=== PATIENT | female | born 1985 | race Caucasian/White ===

== ENCOUNTER 2016-08-30 07:45 | Inpatient (IN) | payer SELFPAY ==
[~2016-08-30] VITALS: Ht 170.2 cm; Wt 74.7 kg
[2016-08-30] VITALS (46 sets, daily range): BP systolic 59–201; BP diastolic 36–145; PULSE 65–121; RESP 14–37; TEMP 97.8–99.3; O2SAT 94–100
[~2016-08-30 07:45] MED LIST: IBUP800T23 PO
[2016-08-30] MEDS ORDERED: CEPH-460 PO (08:05)
[2016-08-30] MEDS ORDERED: SODIUM CHLOR 0.9% 1000 ML INJ 1,000 ML IV ONE ×3 (08:11→10:00)
[2016-08-30] MEDS ORDERED: MORPHINE SULFATE 8 MG/ML INJ IV PUSH ONE (08:15)
[2016-08-30] MEDS ORDERED: ONDANSETRON HCL 4 MG/2 ML VIAL IM ONE (08:15)
[2016-08-30] MEDS ORDERED: SODIUM CHLORIDE 0.9% FLUSH 10 ML FLUSH IVF PRN (08:15)
[2016-08-30] MEDS ORDERED: VANCOMYCIN INJ 1,050 MG in SODIUM CHLOR 0.9% 250 ML INJ 250 ML IV ONE (08:30)
[2016-08-30] MEDS ORDERED: PIPERACIL-TAZO 3.375 GM PREMIX 50 ML IV ONE (08:30)
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
[2016-08-30 08:40] LABS: AUTOMATED NEUTROPHIL # 14.3 TH/MM3 (1.8-7.7); BASOPHIL # 0.1 TH/MM3 (0-0.2); BASOPHIL % 0.9 % (0.0-2.0); EOSINOPHIL # 0.2 TH/MM3 (0-0.4); EOSINOPHIL % 1.1 % (0.0-4.0); HEMATOCRIT 38.2 % (35.0-46.0); LYMPH % 1.5 % (9.0-44.0); LYMPHOCYTE # 0.2 TH/MM3 (1.0-4.8); MEAN CELL VOLUME 89.5 FL (80.0-100.0); MEAN CORPUSCULAR HEMOGLOBIN 30.4 PG (27.0-34.0); MONO % 4.8 % (0.0-8.0); NEUT % 91.7 % (16.0-70.0); PLATELET COUNT 147 TH/MM3 (150-450); RED BLOOD COUNT 4.26 MIL/MM3 (4.00-5.30); RED CELL DISTRIBUTION WIDTH 13.3 % (11.6-17.2); WHITE BLOOD COUNT 15.5 TH/MM3 (4.0-11.0)
[2016-08-30 08:43] LABS: HEMO FLAGS DIFF FINAL
[2016-08-30] MEDS ORDERED: fentaNYL CITRATE 250 MCG/5 ML AMP IV PUSH ONE (08:45)
[2016-08-30] MEDS ORDERED: TETANUS/DIPHTHERIA TOXOID ADULT 0.5 ML VIAL IM ONE (08:45)
[2016-08-30 08:51] LABS: POTASSIUM 3.7 MEQ/L (3.5-5.1)
[2016-08-30 08:54] LABS: BICARBONATE 27.4 MEQ/L (21.0-32.0)
[2016-08-30 08:55] LABS: APTT (PATIENT) 30.4 SEC (24.3-30.1); INTERNATIONAL NORMALIZED RATIO 1.2 RATIO; PROTHROMBIN TIME - PATIENT 13.5 SEC (9.8-11.6)
[2016-08-30] MEDS ORDERED: VANCOMYCIN INJ 1,000 MG in SODIUM CHLOR 0.9% 250 ML INJ 250 ML IV ONE (09:15)
[2016-08-30] MEDS ORDERED: LEVOFLOXACIN 750 MG PREMIX INJ 150 ML IV ONE (09:15)
[2016-08-30] MEDS ORDERED: NOREPINEPHRINE-DEXTROSE DRIP 250 ML IV SCH (11:00)
[2016-08-30 11:14] LABS: GLUCOSE,URINE NEG (NEG); KETONE, URINE NEG (NEG); NITRITE,URINE NEG (NEG); PH, URINE 5.5 (5.0-8.5)
[2016-08-30] MEDS ORDERED: POTASSIUM CHLOR 40 MEQ PREMIX 100 ML IV PRN ×2 (11:15)
[2016-08-30] MEDS ORDERED: POTASSIUM PHOSPHATE MONOBASIC 500 MG TAB PO/TUBE PRN (11:15)
[2016-08-30] MEDS ORDERED: POTASSIUM PHOSPHATE MONOBASIC 500 MG TAB PO PRN (11:15)
[2016-08-30] MEDS ORDERED: POTASSIUM PHOSPHATE INJ 30 MMOL in SODIUM CHLOR 0.9% 250 ML INJ 250 ML IV PRN (11:15)
[2016-08-30] MEDS ORDERED: SODIUM PHOSPHATE INJ 30 MMOL in SODIUM CHLOR 0.9% 250 ML INJ 240 ML IV PRN (11:15)
[2016-08-30] MEDS ORDERED: MAGNESIUM SULFATE INJ 4 GM in SODIUM CHLORIDE 0.9% INJ 92 ML IV PRN (11:15)
[2016-08-30] MEDS ORDERED: MAGNESIUM SULFATE INJ 2 GM in SODIUM CHLORIDE 0.9% INJ 96 ML IV PRN (11:15)
[2016-08-30] MEDS ORDERED: POTASSIUM CHLOR 20 MEQ PREMIX 100 ML IV PRN ×2 (11:15)
[2016-08-30] MEDS ORDERED: MAGNESIUM OXIDE 400 MG TAB PO PRN (11:15)
[2016-08-30 11:18] LABS: BLOOD, URINE MOD (NEG)
[2016-08-30 11:19] LABS: METHOD OF COLLECTION CLEAN CATCH; URINE COLOR DARK-YELLOW (YELLW/STRAW)
[2016-08-30 11:20] LABS: RBC, URINE 0-3 /hpf (0-3); SQUAMOUS EPITHELIAL CELL URINE 0-5 /hpf (0-5)
--- NOTE | 2016-08-30 11:58 | RADRPT ---
EXAM DATE/TIME: 08/30/2016 11:52 [place] COMPARISON: No previous studies available for comparison. INDICATIONS : Central line placement. MEDICAL HISTORY : None. SURGICAL HISTORY : None. ENCOUNTER: Initial ACUITY: 1 day PAIN SCORE: 0/10 LOCATION: Bilateral chest FINDINGS: A single view of the chest demonstrates the lungs to be symmetrically aerated without evidence of mas s, infiltrate or effusion. The cardiomediastinal contours are unremarkable. Osseous structures are intact. Right jugular line tip overlies the SVC. Lungs are clear. CONCLUSION: Right jugular line as above. No evidence of pneumothorax. Buck Garza MD on August 30, 2016 at 11:55 Board Certified Radiologist. This report was verified electronically.
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
[2016-08-30] MEDS ORDERED: RESP: ALBUTEROL 2.5 MG/IPRATROPIUM 0.5 MG NEB (PRN) NEB (12:15)
[2016-08-30] MEDS ORDERED: Vancomycin Consult Pharmacy 1 EA OTHER SCH (12:15)
[2016-08-30] MEDS ORDERED: NALOXONE HCL 0.4 MG/ML AMP IV PRN (12:30)
[2016-08-30] MEDS ORDERED: KETOROLAC TROMETHAMINE 30 MG/ML (IVP) VIAL IVP PRN (12:30)
[2016-08-30] MEDS ORDERED: ACETAMINOPHEN/HYDROcodone 325 MG/5 MG TAB PO PRN (12:30)
[2016-08-30] MEDS ORDERED: ACETAMINOPHEN 325 MG TAB PO PRN (12:30)
[2016-08-30 12:37] LABS: INDIRECT BILIRUBIN 1.9 MG/DL (0.0-0.8); TOTAL BILIRUBIN ADULT 2.2 MG/DL (0.2-1.0)
[2016-08-30] MEDS: NS + KCL 20 MEQ INJ 1,000 ML IV SCH (13:23)
[2016-08-30] MEDS: ENOXAPARIN SODIUM 40 MG/0.4 ML SYRINGE SQ SCH (13:23)
[2016-08-30] MEDS ORDERED: CHLORHEXIDINE GLUCONATE 2 % 1 PACK (2 CLOTHS)(extra cloths) TOPICAL PRN (13:45)
[2016-08-30] MEDS: PANTOPRAZOLE SOD 40 MG DELAYED RELEASE TAB PO SCH (13:56)
[2016-08-30] MEDS: NICOTINE 14 MG/24 HR PATCH T-DERMAL SCH (13:56)
[2016-08-30] MEDS: MORPHINE SULFATE 8 MG/ML INJ IV PUSH PRN ×2 (14:14→19:54)
[2016-08-30 15:15] LABS: LACTIC ACID GHOST NOT REPORTABLE
[2016-08-30] MEDS ORDERED: HYDROmorphone HCL PF 1 MG/ML VIAL IV PUSH ONE (16:00)
[2016-08-30] MEDS: PIPERACIL-TAZO 3.375 GM PREMIX 50 ML IV SCH ×2 (16:37→22:03)
[2016-08-30] MEDS ORDERED: VANCOMYCIN 1,000 MG/NS 250 ML IV SCH ×2 (22:00)
--- NOTE | 2016-08-30 22:35 | RADRPT ---
EXAM DATE/TIME: 08/30/2016 20:23 [place] COMPARISON: No previous studies available for comparison. INDICATIONS : Cellulitis. Evaluate for compartment syndrome. CONTRAST: 15 cc Omniscan (gadodiamide) IV MEDICAL HISTORY : None. SURGICAL HISTORY : Appendectomy. Right wrist. ENCOUNTER: Subsequent ACUITY: 2 day PAIN SCORE: 8/10 LOCATION: Right Lower leg. TECHNIQUE: Multiplanar multisequence MRI examination of the lower leg was performed with and without contrast. FINDINGS: BONE/CARTILAGE: Bone marrow signal is homogeneous. Articular cartilage signal is within normal limits. MUSCLES/TENDONS: All of the visualized muscles and tendons are intact. There is circumferential edema seen around the all the muscular compartments. Edema within the muscles themselves is not seen. The circumferential e opal appears to be within the deep subcutaneous fat. MISCELLANEOUS: Neurovascular structures are within normal limits. POST-CONTRAST: There are no abnormal areas of enhancement on the post-contrast images. CONCLUSION: Edema within the deep subcutaneous fat abutting the muscular compartments. Edema within the muscular compartments is not seen. Early compartment syndrome cannot be totally ruled out with MR. Evan Vargas MD on August 30, 2016 at 22:23 Board Certified Radiologist. This report was verified electronically.
[2016-08-30] MEDS ORDERED: GADODIAMIDE PF 287 MG/ML 5 ML VIAL (for RAD MRI) IV ONE (23:13)
[2016-08-30] MEDS: BACITRACIN TOP OINT 15 GM TUBE TOPICAL SCH (23:38)
[2016-08-30] MEDS ORDERED: LACTATED RINGER'S 1000 ML INJ 1,000 ML IV ONE (23:45)
[2016-08-31] VITALS (49 sets, daily range): BP systolic 79–121; BP diastolic 47–78; PULSE 50–94; RESP 12–41; TEMP 98–98.5; O2SAT 93–99
[2016-08-31] MEDS: NS + KCL 20 MEQ INJ 1,000 ML IV SCH ×3 (00:27→17:28)
[2016-08-31] MEDS: ACETAMINOPHEN/HYDROcodone 325 MG/10 MG TAB PO PRN ×3 (00:28→21:21)
[2016-08-31] MEDS: VASOPRESSIN INJ 40 UNITS in DEXTROSE 5% IN WATER 100ML INJ 98 ML IV SCH ×4 (00:29→17:29)
[2016-08-31] MEDS: NOREPINEPHRINE-DEXTROSE DRIP 250 ML IV SCH ×2 (02:13→07:06)
[2016-08-31] MEDS: CHLORHEXIDINE GLUCONATE 2 % 1 PACK (2 CLOTHS)(taper/protocol) TOPICAL SCH (02:13)
[2016-08-31] MEDS: PIPERACIL-TAZO 3.375 GM PREMIX 50 ML IV SCH (02:13)
[2016-08-31 06:05] LABS: MEAN CELL VOLUME 90.4 FL (80.0-100.0); MEAN CORPUSCULAR HEMOGLOBIN 29.3 PG (27.0-34.0); MEAN CORPUSCULAR HGB CONC 32.5 % (32.0-36.0); PLATELET COUNT 126 TH/MM3 (150-450); RED BLOOD COUNT 3.87 MIL/MM3 (4.00-5.30); RED CELL DISTRIBUTION WIDTH 13.4 % (11.6-17.2); REVIEW FLAG FINAL; WHITE BLOOD COUNT 17.2 TH/MM3 (4.0-11.0)
[2016-08-31 06:16] LABS: POTASSIUM 4.2 MEQ/L (3.5-5.1)
[2016-08-31] MEDS: MORPHINE SULFATE 8 MG/ML INJ IV PUSH PRN ×2 (06:24→19:02)
[2016-08-31 06:26] LABS: BICARBONATE 25.7 MEQ/L (21.0-32.0)
[2016-08-31] MEDS ORDERED: PIPERACIL-TAZO 4.5 GM PREMIX 100 ML IV SCH (06:30)
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
[2016-08-31] MEDS: BISACODYL 10 MG SUPP RECTAL SCH (09:00)
[2016-08-31] MEDS: REMOVE OLD PATCH T-DERMAL SCH (09:00)
[2016-08-31] MEDS: DOCUSATE SODIUM 50 MG/SENNA 8.6 MG TAB PO SCH ×2 (09:06→21:38)
[2016-08-31] MEDS: LACTULOSE SYRUP 20 GM/30 ML CUP PO SCH ×2 (09:08→21:00)
[2016-08-31] MEDS: PANTOPRAZOLE SOD 40 MG DELAYED RELEASE TAB PO SCH (09:08)
[2016-08-31] MEDS: NICOTINE 14 MG/24 HR PATCH T-DERMAL SCH (09:08)
[2016-08-31] MEDS: BACITRACIN TOP OINT 15 GM TUBE TOPICAL SCH ×2 (09:10→21:00)
[2016-08-31] MEDS: PIPERACIL-TAZO 4.5 GM PREMIX 100 ML IV SCH ×3 (09:10→21:07)
[2016-08-31] MEDS: POLYETHYLENE GLYCOL 17 GM PKG PO SCH ×2 (09:11→21:38)
[2016-08-31] MEDS: LEVOFLOXACIN 750 MG PREMIX INJ 150 ML IV SCH (13:03)
[2016-08-31] MEDS: VANCOMYCIN INJ 1,250 MG in SODIUM CHLOR 0.9% 250 ML INJ 250 ML IV SCH ×2 (13:03→17:28)
[2016-08-31] MEDS: ENOXAPARIN SODIUM 40 MG/0.4 ML SYRINGE SQ SCH (13:04)
--- NOTE | 2016-08-31 14:32 | ECHRPT ---
Indication: Severe sepsis without septic shock, HYPOTENSION CONCLUSIONS Normal left ventricular size. Wall thickness is normal. The left ventricular systolic function is normal with an estimated ejection fraction in the range of 55-60%. No regional wall motion abnormalities are present. Left ventricular diastolic function parameters are normal. BP: 116 / 66 HR: 76 Rhythm: Sinus MEASUREMENTS (Male / Female) Normal Values Technical Quality:Fair 2D ECHO LV Diastolic Diameter PLAX 5.4 cm 4.2 - 5.9 / 3.9 - 5.3 cm LV Systolic Diameter PLAX 4.1 cm IVS Diastolic Thickness 0.7 cm 0.6 - 1.0 / 0.6 - 0.9 cm LVPW Diastolic Thickness 0.8 cm 0.6 - 1.0 / 0.6 - 0.9 cm LV Relative Wall Thickness 0.3 LVOT Diameter 2.2 cm Aortic Root Diameter 2.7 cm LA Systolic Diameter LX 3.8 cm 3.0 - 4.0 / 2.7 - 3.8 cm M-MODE AV Cusp Separation MM 2.3 cm DOPPLER AV Peak Velocity 130.0 cm/s AV Peak Gradient 6.8 mmHg AV Mean Gradient 4.0 mmHg AV Velocity Time Integral 28.2 cm LVOT Peak Velocity 75.9 cm/s LVOT Peak Gradient 2.3 mmHg LVOT Velocity Time Integral 15.8 cm LVOT Cardiac Index 2328.7 cm/minm AV Area Cont Eq vti 2.1 cm AV Area Cont Eq pk 2.2 cm Mitral E Point Velocity 63.7 cm/s Mitral A Point Velocity 47.9 cm/s Mitral E to A Ratio 1.3 LV E' Lateral Velocity 20.9 cm/s Mitral E to LV E' Lateral Ratio 3.0 LV E' Septal Velocity 10.6 cm/s Mitral E to LV E' Septal Ratio 6.0 TR Peak Velocity 262.0 cm/s TR Peak Gradient 27.5 mmHg PV Peak Velocity 66.9 cm/s PV Peak Gradient 1.8 mmHg FINDINGS LEFT VENTRICLE Normal left ventricular size. Wall thickness is normal. The left ventricular systolic function is normal with an estimated ejection fraction in the range of 55-60%. No regional wall motion abnormalities are present. Left ventricular diastolic function parameters are normal. RIGHT VENTRICLE Normal right ventricular size and systolic function. LEFT ATRIUM The left atrial size is normal. RIGHT ATRIUM The right atrial size is normal. ATRIAL SEPTUM Normal atrial septal thickness without atrial level shunting by limited color doppler interrogation. AORTA The aortic root and proximal ascending aorta are normal in size on limited imaging. MITRAL VALVE Structurally normal mitral valve. Trace mitral valve regurgitation. AORTIC VALVE Trileaflet aortic valve. No aortic valve stenosis or regurgitation. TRICUSPID VALVE Structurally normal tricuspid valve. There is trace tricuspid valve regurgitation. Normal estimated pulmonary pressures. PULMONARY VALVE The pulmonary valve is not well visualized. VESSELS The inferior vena cava is normal in size. PERICARDIUM No pericardial effusion. Everton Valle MD, FACC (Electronically Signed) Final Date:31 August 2016 14:31
[2016-09-01] VITALS (25 sets, daily range): BP systolic 80–114; BP diastolic 38–73; PULSE 70–98; RESP 14–39; TEMP 98–99.7; O2SAT 95–100
[2016-09-01] MEDS: VANCOMYCIN INJ 1,250 MG in SODIUM CHLOR 0.9% 250 ML INJ 250 ML IV SCH ×2 (00:47→12:05)
[2016-09-01] MEDS: CHLORHEXIDINE GLUCONATE 2 % 1 PACK (2 CLOTHS)(taper/protocol) TOPICAL SCH (01:51)
[2016-09-01] MEDS: PIPERACIL-TAZO 4.5 GM PREMIX 100 ML IV SCH ×3 (01:51→14:12)
[2016-09-01] MEDS: NS + KCL 20 MEQ INJ 1,000 ML IV SCH ×2 (01:55→15:26)
[2016-09-01 04:36] LABS: HEMATOCRIT 30.3 % (35.0-46.0); MEAN CELL VOLUME 89.7 FL (80.0-100.0); MEAN CORPUSCULAR HEMOGLOBIN 30.4 PG (27.0-34.0); MEAN CORPUSCULAR HGB CONC 33.8 % (32.0-36.0); PLATELET COUNT 106 TH/MM3 (150-450); RED BLOOD COUNT 3.38 MIL/MM3 (4.00-5.30); RED CELL DISTRIBUTION WIDTH 13.2 % (11.6-17.2); REVIEW FLAG FINAL; WHITE BLOOD COUNT 9.8 TH/MM3 (4.0-11.0)
[2016-09-01 04:53] LABS: BICARBONATE 25.9 MEQ/L (21.0-32.0)
[2016-09-01 05:03] LABS: CALCIUM-PROTEIN CORRECTED 8.3 MG/DL (8.5-10.1)
[2016-09-01] MEDS: MORPHINE SULFATE 8 MG/ML INJ IV PUSH PRN ×3 (07:40→15:27)
[2016-09-01] MEDS ORDERED: PHARMACY ORDERED LAB ONE ×2 (08:45→09:45)
[2016-09-01] MEDS: POLYETHYLENE GLYCOL 17 GM PKG PO SCH ×2 (09:00→21:00)
[2016-09-01] MEDS: NICOTINE 14 MG/24 HR PATCH T-DERMAL SCH (09:00)
[2016-09-01] MEDS: PANTOPRAZOLE SOD 40 MG DELAYED RELEASE TAB PO SCH (09:00)
[2016-09-01] MEDS: BISACODYL 10 MG SUPP RECTAL SCH (09:00)
[2016-09-01] MEDS: LACTULOSE SYRUP 20 GM/30 ML CUP PO SCH ×2 (09:00→21:00)
[2016-09-01] MEDS: DOCUSATE SODIUM 50 MG/SENNA 8.6 MG TAB PO SCH ×2 (09:00→21:00)
[2016-09-01] MEDS: REMOVE OLD PATCH T-DERMAL SCH (09:00)
[2016-09-01] MEDS ORDERED: PROPOFOL 200 MG/20 ML AMP IV ONE (12:00)
[2016-09-01] MEDS ORDERED: ONDANSETRON HCL 4 MG/2 ML VIAL IV PUSH ONE (12:00)
[2016-09-01] MEDS: BACITRACIN TOP OINT 15 GM TUBE TOPICAL SCH ×2 (12:05→21:00)
[2016-09-01] MEDS: ENOXAPARIN SODIUM 40 MG/0.4 ML SYRINGE SQ SCH (12:07)
[2016-09-01] MEDS: LEVOFLOXACIN 750 MG PREMIX INJ 150 ML IV SCH (12:08)
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
[2016-09-01] MEDS ORDERED: VANCOMYCIN INJ 1,400 MG in SODIUM CHLORID 0.9% 500 ML INJ 500 ML IV SCH (17:00)
[2016-09-01] MEDS: DEXT 5%-NACL 0.9% 1000 ML INJ 1,000 ML IV SCH (18:00)
[2016-09-01] MEDS ORDERED: GENTAMICIN SULFATE 80 MG/2 ML VIAL ONE (18:21)
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
[2016-09-01] MEDS ORDERED: BUPIVACAINE/EPINEPHRINE 0.5% 50 ML VIAL ONE (19:44)
[2016-09-01] MEDS ORDERED: MIDAZOLAM HCL 2 MG/2 ML VIAL ONE (20:18)
[2016-09-01] MEDS ORDERED: FAMOTIDINE 20 MG/2 ML VIAL ONE (20:18)
[2016-09-01] MEDS ORDERED: fentaNYL CITRATE 250 MCG/5 ML AMP ONE (20:26)
[2016-09-01] MEDS ORDERED: ACETAMINOPHEN/HYDROcodone 325 MG/10 MG TAB PO PRN (20:45)
[2016-09-01] MEDS ORDERED: MIDAZOLAM HCL 2 MG/2 ML VIAL IV ONE (21:00)
[2016-09-01] MEDS ORDERED: CITRIC ACID-SODIUM CITRATE LIQ 30 ML UDC PO ONE (21:00)
[2016-09-01] MEDS ORDERED: FAMOTIDINE 20 MG/2 ML VIAL IV ONE (21:00)
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
[2016-09-01] MEDS ORDERED: CEFTAZIDIME 2000 MG IM ONE (21:15)
[2016-09-01] MEDS ORDERED: CIPROFLOXACIN SUSP 500 MG/5 ML 100 ML BOTTLE ONE (21:15)
[2016-09-01] MEDS: DOXYCYCLINE INJ 100 MG in SODIUM CHLORIDE 0.9% INJ 100 ML IV SCH (21:15)
[2016-09-01] MEDS: CIPROFLOXACIN 400 MG PREMIX 200 ML IV SCH (21:15)
[2016-09-01] MEDS: cefTAZidime INJ 2,000 MG in SODIUM CHLORIDE 0.9% INJ 100 ML IV SCH (21:15)
[2016-09-01] MEDS ORDERED: DOXYCYCLINE 100 MG IV ONE (21:15)
--- NOTE | 2016-09-01 21:33 | HHI.PR ---
cc: Dirk Grey MD Immediate Post Op Note Procedure Date: Sep 01, 2016 Pre Op Diagnosis: Infection right leg with possible compartment syndrome Post Op Diagnosis: Surgeon: Dirk Grey Rubble Placer(s): Irving Beasley PA-C The surgical procedure was assisted by my physician engineer third assistant. My P.A. presence was necessary throughout this case for the manipulation and positioning of the surgical extremity. My P.A. was assisting me throughout the duration of this procedure. The skill set of a physician engineer third assistant was medically necessary to complete this procedure. During the surgical case the surgical attendant was working at the back table and the physician engineer third assistant was directly assisting me. Procedure: Irrigation debridement of right calf necrotizing infection Compartment release of anterior and lateral calf compartments Wound VAC application Complications: None Anesthesia: General Patient to: PACU Dirk Grey MD Sep 01, 2016 21:33
[2016-09-01] MEDS ORDERED: DO NOT ADM ANY ANTICOAGULANT DRUGS PRN (22:00)
[2016-09-01] MEDS ORDERED: *morphine SULFATE 8 MG/ML PERIprocedure ONLY ONE ×3 (22:06→22:27)
[2016-09-01] MEDS ORDERED: *HYDROmorphone PF 1 MG VIAL PERIprocedural Use ONLY ONE (22:59)
[2016-09-02] VITALS (14 sets, daily range): BP systolic 102–119; BP diastolic 57–80; PULSE 64–82; RESP 17–24; TEMP 97.8–99.4; O2SAT 94–100
[2016-09-02] MEDS: MORPHINE SULFATE 4 MG/ML INJ IV PUSH PRN ×2 (01:46→04:53)
[2016-09-02] MEDS: cefTAZidime INJ 2,000 MG in SODIUM CHLORIDE 0.9% INJ 100 ML IV SCH ×3 (02:20→18:01)
[2016-09-02] MEDS: CHLORHEXIDINE GLUCONATE 2 % 1 PACK (2 CLOTHS)(taper/protocol) TOPICAL SCH (04:00)
[2016-09-02] MEDS: DOXYCYCLINE INJ 100 MG in SODIUM CHLORIDE 0.9% INJ 100 ML IV SCH ×2 (05:07→18:49)
[2016-09-02 05:25] LABS: HEMATOCRIT 33.2 % (35.0-46.0); MEAN CELL VOLUME 91.4 FL (80.0-100.0); MEAN CORPUSCULAR HEMOGLOBIN 29.7 PG (27.0-34.0); MEAN CORPUSCULAR HGB CONC 32.5 % (32.0-36.0); PLATELET COUNT 160 TH/MM3 (150-450); RED BLOOD COUNT 3.64 MIL/MM3 (4.00-5.30); RED CELL DISTRIBUTION WIDTH 14.4 % (11.6-17.2); REVIEW FLAG FINAL; WHITE BLOOD COUNT 7.7 TH/MM3 (4.0-11.0)
[2016-09-02 05:48] LABS: BICARBONATE 28.2 MEQ/L (21.0-32.0); POTASSIUM 4.1 MEQ/L (3.5-5.1)
[2016-09-02] MEDS: DEXT 5%-NACL 0.9% 1000 ML INJ 1,000 ML IV SCH ×2 (06:46→20:40)
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
[2016-09-02] MEDS ORDERED: NALOXONE HCL 0.4 MG/ML AMP IV PRN (07:00)
[2016-09-02] MEDS: ACETAMINOPHEN/HYDROcodone 325 MG/10 MG TAB PO PRN (07:00)
--- NOTE | 2016-09-02 07:23 | PD.ORT.PN ---
Subjective Subjective Remarks s/p I&D with fasciotomy and vac application right leg -doing well. pain improved Objective Vitals Vital Signs Date Time Temp Pulse Resp B/P Pulse Ox O2 Delivery O2 Flow Rate FiO2 09/02/16 03:47 100 09/02/16 02:00 74 09/02/16 00:00 97.8 80 18 102/57 94 09/02/16 00:00 80 09/01/16 23:45 90 16 100 Nasal Cannula 2 09/01/16 23:30 85 16 97 Nasal Cannula 2 09/01/16 23:15 88 14 104/59 99 Nasal Cannula 2 09/01/16 23:00 86 14 110/61 100 Nasal Cannula 2 09/01/16 22:45 88 16 107/62 100 Nasal Cannula 2 09/01/16 22:30 83 16 108/65 100 Nasal Cannula 2 09/01/16 22:15 94 16 118/73 99 Nasal Cannula 2 09/01/16 22:00 109 18 103/58 98 Nasal Cannula 4 09/01/16 21:58 98.6 98 12 100/63 100 Nasal Cannula 4 09/01/16 20:33 99.2 81 16 100/65 95 09/01/16 20:13 99.1 81 20 100/65 100 09/01/16 18:00 86 09/01/16 18:00 86 97/57 09/01/16 18:00 86 27 09/01/16 17:00 98.7 86 21 09/01/16 16:00 92 24 09/01/16 16:00 98 09/01/16 15:32 16 09/01/16 15:00 99.7 80 25 09/01/16 14:00 98 09/01/16 14:00 84 25 09/01/16 13:00 80 25 09/01/16 12:00 78 09/01/16 12:00 98.5 86 21 108/62 09/01/16 12:00 78 108/62 09/01/16 11:00 94 39 09/01/16 10:00 76 09/01/16 10:00 78 18 93/54 09/01/16 09:00 76 24 95/61 09/01/16 08:00 98 21 09/01/16 08:00 98.8 70 24 114/73 7/6/17 08:00 70 09/01/16 08:00 98.8 70 24 114/73 I/O 09/01/16 09/01/16 09/01/16 09/02/16 09/02/16 09/02/16 07:00 15:00 23:00 07:00 15:00 23:00 Intake Total 1400 ml 4588 ml 600 ml 100 ml Output Total 1200 ml 4050 ml 100 ml 1000 ml Balance 200 ml 538 ml 500 ml -900 ml Intake Oral 220 ml 3250 ml IV Total 1180 ml 1338 ml 100 ml Other 600 ml Output Urine Total 1200 ml 4050 ml 1000 ml Estimated Blood Loss 100 ml # Voids 2 6 1 # Bowel Movements 0 0 Result Diagram: 09/02/16 0500 09/02/16 0500 Objective Remarks RLE: +swelling and erythema of lower leg. vacs present with good seal. NVI. no evidence of necrosis Assessment & Plan Assessment and Plan 1) Right Leg infection s/p I&D and vac application - POD 1 -NWB -maintain vacs at all time -infectious disease for IV Abx -NPO after MN -sign consents -plan for OR on monday for I&D with Irving Morales Sep 02, 2016 07:23
[2016-09-02] MEDS ORDERED: ACETAMINOPHEN 325 MG TAB PO PRN (08:00)
[2016-09-02] MEDS: LACTULOSE SYRUP 20 GM/30 ML CUP PO SCH ×2 (08:49→20:37)
[2016-09-02] MEDS: CIPROFLOXACIN 400 MG PREMIX 200 ML IV SCH ×2 (08:50→20:37)
[2016-09-02] MEDS: PANTOPRAZOLE SOD 40 MG DELAYED RELEASE TAB PO SCH (08:53)
[2016-09-02] MEDS: DOCUSATE SODIUM 50 MG/SENNA 8.6 MG TAB PO SCH ×2 (09:00→20:37)
[2016-09-02] MEDS: BISACODYL 10 MG SUPP RECTAL SCH (09:00)
[2016-09-02] MEDS: BACITRACIN TOP OINT 15 GM TUBE TOPICAL SCH ×2 (09:00→20:37)
[2016-09-02] MEDS: POLYETHYLENE GLYCOL 17 GM PKG PO SCH ×2 (09:00→20:37)
[2016-09-02] MEDS: HYDROmorphone HCL PCA 6 MG/30 ML IV SCH ×2 (09:49→20:39)
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
--- NOTE | 2016-09-02 13:29 | MP ---
cc: DIRK SUAREZ DATE OF SURGERY 09/01/2016 PREOPERATIVE DIAGNOSIS Right calf necrotizing infection with possible compartment syndrome. POSTOPERATIVE DIAGNOSIS Right calf necrotizing infection with possible compartment syndrome. SURGEON Dirk Suarez MD. GLUE DRIER OPERATOR Irving Beasley PA-C. The surgical procedure was assisted by my physician bilingual sales assistant. My PA-C's presence was necessary throughout this case for the manipulation and positioning of the surgical extremity. My PA-C was assisting me throughout the duration of this procedure. The skill set of a physician bilingual sales assistant was medically necessary to complete this procedure. During the surgical case the surgical technologist was working at the back table and the physician bilingual sales assistant was directly assisting me. PROCEDURE 1. Irrigation and debridement of right calf necrotizing infection. 2. Compartment release with fasciotomy of the anterior lateral compartments. 3. Application of wound VAC dressings. ANESTHESIA General. ESTIMATED BLOOD LOSS 100 cc. SPECIMENS Cultures x 2. DETAILS OF PROCEDURE Smitha is a 30-year-old female who sustained an injury to her right leg approximately four days ago. She has developed an infection with possible Vibrio infection. Informed consent was obtained. The operative site was marked. She was brought to the operating room and placed on the OR table. She was given IV sedation and general anesthesia. Her right leg was prepped with alcohol followed by Hibiclens and draped in the usual sterile fashion. Time-out procedure was performed. Th procedure began with incision over the anterior lateral calf. The traumatic lacerations were opened. There was some necrotic tissue including skin and subcutaneous tissue and fascia. All necrotic tissue was sharply debrided. Along the posterior calf. There was a large area of necrotic skin. This was completely excised. Cultures were obtained from the subcutaneous tissue and fat. Subcutaneous tissue and fascia were sharply debrided with scalpel and knife. An additional area was identified over the posterior medial ankle. This area of skin and subcutaneous tissue and fascia were also sharply debrided. After debridement of all necrotic tissue, the remainder of tissue appeared to be healthy and viable. The wound was now thoroughly irrigated. Next attention was turned to the fasciotomy. The anterolateral compartments were relatively tight. The fascia over the anterolateral compartments was now incised using Bovie. The muscle appeared to be healthy and viable. The wounds were again thoroughly irrigated. Last, attention was turned to wound VAC dressings. Four separate VAC dressings were applied. VAC dressings were cut to fit the wound. VAC dressings were sealed appropriately. The VAC dressings were sealed appropriately. The patient was transferred to Recovery in stable condition. MD KAT Diaz/CHRISTIANO /9:40 PM /1:24 PM
[2016-09-02] MEDS: ENOXAPARIN SODIUM 40 MG/0.4 ML SYRINGE SQ SCH (13:37)
[2016-09-02] MEDS: PCA - TOTAL MG DILAUDID DELIVERED PER SHIFT OTHER SCH ×2 (14:00→22:00)
[2016-09-02] MEDS ORDERED: PHARMACY ORDERED LAB ONE (16:45)
[2016-09-03] VITALS (10 sets, daily range): BP systolic 102–122; BP diastolic 57–70; PULSE 54–88; RESP 13–19; TEMP 97.8–99.2; O2SAT 96–99
[2016-09-03] MEDS: LACTATED RINGER'S 1000 ML INJ 1,000 ML IV SCH ×3 (00:04→23:17)
[2016-09-03] MEDS: cefTAZidime INJ 2,000 MG in SODIUM CHLORIDE 0.9% INJ 100 ML IV SCH ×4 (00:05→16:04)
[2016-09-03] MEDS: CHLORHEXIDINE GLUCONATE 2 % 1 PACK (2 CLOTHS)(taper/protocol) TOPICAL SCH ×2 (04:00→23:34)
[2016-09-03] MEDS: DOXYCYCLINE INJ 100 MG in SODIUM CHLORIDE 0.9% INJ 100 ML IV SCH ×2 (05:03→16:57)
[2016-09-03 05:05] LABS: BASOPHIL # 0.1 TH/MM3 (0-0.2); BASOPHIL % 1.2 % (0.0-2.0); EOSINOPHIL # 0.2 TH/MM3 (0-0.4); EOSINOPHIL % 2.6 % (0.0-4.0); HEMATOCRIT 34.4 % (35.0-46.0); LYMPH % 32.1 % (9.0-44.0); MEAN CELL VOLUME 89.1 FL (80.0-100.0); MEAN CORPUSCULAR HEMOGLOBIN 30.5 PG (27.0-34.0); MEAN CORPUSCULAR HGB CONC 34.2 % (32.0-36.0); MONO % 15.9 % (0.0-8.0); NEUT % 48.2 % (16.0-70.0); PLATELET COUNT 199 TH/MM3 (150-450); RED BLOOD COUNT 3.86 MIL/MM3 (4.00-5.30); RED CELL DISTRIBUTION WIDTH 14.2 % (11.6-17.2); WHITE BLOOD COUNT 6.2 TH/MM3 (4.0-11.0)
[2016-09-03 05:14] LABS: HEMO FLAGS AUTO DIFF
[2016-09-03 05:46] LABS: ALKALINE PHOSPHATASE 85 U/L (45-117); ALT (GPT) 40 U/L (10-53); ANION GAP 5 MEQ/L (5-15); AST (GOT) 25 U/L (15-37); BICARBONATE 29.6 MEQ/L (21.0-32.0); BLOOD UREA NITROGEN 2 MG/DL (7-18); CHLORIDE 103 MEQ/L (98-107); GLOMERULAR FILTRATION RATE 121 ML/MIN (>89); MAGNESIUM 1.7 MG/DL (1.5-2.5); POTASSIUM 3.9 MEQ/L (3.5-5.1); SODIUM (NA) 138 MEQ/L (136-145)
[2016-09-03 05:57] LABS: CREATINE KINASE 31 U/L (26-192)
[2016-09-03] MEDS: PCA - TOTAL MG DILAUDID DELIVERED PER SHIFT OTHER SCH ×3 (06:00→22:00)
[2016-09-03 07:20] LABS: SCAN/DIFF AUTO DIFF CONFIRMED
[2016-09-03] MEDS: CIPROFLOXACIN 400 MG PREMIX 200 ML IV SCH ×3 (08:00→20:43)
[2016-09-03] MEDS ORDERED: GENTAMICIN SULFATE 80 MG/2 ML VIAL ONE (08:14)
[2016-09-03] MEDS ORDERED: *morphine SULFATE 8 MG/ML PERIprocedure ONLY ONE ×2 (08:52→09:04)
[2016-09-03] MEDS ORDERED: MIDAZOLAM HCL 2 MG/2 ML VIAL ONE (08:56)
[2016-09-03] MEDS ORDERED: fentaNYL CITRATE 250 MCG/5 ML AMP ONE (08:56)
[2016-09-03] MEDS ORDERED: DO NOT ADM ANY ANTICOAGULANT DRUGS PRN (09:00)
[2016-09-03] MEDS: POLYETHYLENE GLYCOL 17 GM PKG PO SCH ×2 (09:00→20:38)
[2016-09-03] MEDS: BISACODYL 10 MG SUPP RECTAL SCH (09:00)
[2016-09-03] MEDS: PANTOPRAZOLE SOD 40 MG DELAYED RELEASE TAB PO SCH (09:00)
[2016-09-03] MEDS: DOCUSATE SODIUM 50 MG/SENNA 8.6 MG TAB PO SCH ×2 (09:00→20:37)
[2016-09-03] MEDS: LACTULOSE SYRUP 20 GM/30 ML CUP PO SCH ×2 (09:00→20:34)
[2016-09-03] MEDS ORDERED: *HYDROmorphone PF 1 MG VIAL PERIprocedural Use ONLY ONE (09:08)
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
[2016-09-03] MEDS: DEXT 5%-NACL 0.9% 1000 ML INJ 1,000 ML IV SCH ×2 (09:15→22:35)
[2016-09-03] MEDS: BACITRACIN TOP OINT 15 GM TUBE TOPICAL SCH ×2 (09:54→20:51)
[2016-09-03] MEDS: MAGNESIUM SULFATE 1 GM PREMIX 100 ML IV SCH ×2 (09:57→11:11)
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
[2016-09-03] MEDS ORDERED: ONDANSETRON HCL 4 MG/2 ML VIAL IV PUSH ONE (12:00)
[2016-09-03] MEDS ORDERED: PROPOFOL 200 MG/20 ML AMP IV ONE (12:00)
[2016-09-03] MEDS: HYDROmorphone HCL PCA 6 MG/30 ML IV SCH ×2 (12:14→20:36)
[2016-09-03] MEDS: ENOXAPARIN SODIUM 40 MG/0.4 ML SYRINGE SQ SCH (13:57)
--- NOTE | 2016-09-03 14:54 | PD.TRANSFR ---
Transfer Summary Admission Date Aug 30, 2016 at 09:37 Transfer Date: Sep 03, 2016 Admitting Diagnosis Sepsis Diagnoses: (1) Sepsis Diagnosis: Principal (2) Cellulitis of leg, right Diagnosis: Principal (3) Vibrio Diagnosis: Principal Significant Findings Wound cultures positive for vibrio Transfer Summary/Subjective Please see note below. Objective Vital Signs Date Time Temp Pulse Resp B/P Pulse Ox O2 Delivery O2 Flow Rate FiO2 09/03/16 14:18 16 09/03/16 14:00 74 09/03/16 12:00 97.8 107/64 98 09/03/16 09:15 Nasal Cannula 2 09/02/16 10:00 21 Intake and Output 09/02/16 09/02/16 09/03/16 08:00 16:00 00:00 Intake Total 1992 ml 2659 ml 919 ml Output Total 1880 ml 1675 ml 945 ml Balance 112 ml 984 ml -26 ml Result Diagram: 09/03/16 0428 09/03/16 0428 Objective Remarks GENERAL: Patient is 30 yo female, resting in bed in no acute distress SKIN: Warm and dry. See muscle skeletal for right lower extremity HEAD: Normocephalic. Atraumatic EYES: Clinically round and react about 3 L bilaterally. NECK: Supple, trachea midline. No JVD or lymphadenopathy. Right IJ is clean dry and intact CARDIOVASCULAR: RRR. S1, S2 no S4. Without murmur, clicks, gallops or rubs. RESPIRATORY: Breath sounds equal bilaterally. Her to auscultation. No accessory muscle use. GASTROINTESTINAL: Abdomen soft, non-tender, nondistended. MUSCULOSKELETAL:RLE-wound VAC placed over 185 mm x 35 mm lateral aspect right calf with minimal erythema and wound VAC medial aspect left ankle approximately 10 x 10 mm. With no erythema. Toes are well perfused on right side.. Sensation intact. Neuro: Awake and alert. Cranial nerves II through XII grossly intact. Strength is equal symmetric. Normal sensation. 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 PULMONARY Chronic tobacco use, currently using nicotine with vaporizer Continue O2 to maintain O2 sats> 92% Albuterol nebulizers when necessary dyspnea every 2 hours Incentive spirometry every hour while awake --Tobacco sensation will be encouraged CARDIOLOGY s/p Septic Shock -- Off pressor monitor HR and BP keep MAP>65mmHg --Currently on D5 normal saline at 75 cc an hour. Echocardiogram / - EF is 55-60%. No regional wall motion abnormality. GASTROENTEROLOGY Hepatitis C Protonix for GI protection Regular diet --Radha-Colace twice a day, lactulose twice a day and MiraLAX twice a day for bowel regimen She does not know her genotype for hepatitis C but states her viral load was undetectable last check 6 months ago. RENAL/FEN Acute kidney injury-resolved Hypo-magnesium Monitor renal function, electrolytes replacement per protocol. 2 g mag sulfate IV 1 now. INFECTIOUS DISEASE s/p Septic Shock - vibrio Right lower extremity necrotizing fasciitis Lactic acid acidosis-resolved Day #2 right calf I&D for nec fasc w/ant and lateral compatment release Plan to return to OR today for washout RLL - 455 RUL - 470 Wound VAC Infectious disease following Day #3 Fortaz 2 g every 8, Cipro 400 mg IV twice a day and doxycycline 100 mg IV every 12 hours. Pertinent cultures 7/4 - wound culture -Vibrio 7/4 - blood cultures 2 - no growth ENDOCRINOLOGY SSI with accuchecks for glycemic control if needed cortisol level: 34, TSH: 2.5 HEMATOLOGY CBC within normal limits. Recheck in a.m. PROPHYLAXIS DVT prevention with Sq Lovenox GI protection with Protonix LINES 7/4 RIJ TLC-day #5 CODE STATUS Full code Level 2 Lio York MD Sep 03, 2016 14:54
[2016-09-04 00:05] VITALS: BP 112/68; PULSE 76; RESP 18; TEMP 99.7; O2SAT 96
[2016-09-04] MEDS: cefTAZidime INJ 2,000 MG in SODIUM CHLORIDE 0.9% INJ 100 ML IV SCH ×3 (00:21→17:26)
[2016-09-04 04:01] VITALS: BP 115/71; PULSE 80; RESP 18; TEMP 98.2; O2SAT 96
[2016-09-04] MEDS: DOXYCYCLINE INJ 100 MG in SODIUM CHLORIDE 0.9% INJ 100 ML IV SCH ×2 (05:16→17:30)
[2016-09-04 05:34] LABS: BASOPHIL % 0.6 % (0.0-2.0); EOSINOPHIL # 0.2 TH/MM3 (0-0.4); EOSINOPHIL % 4.2 % (0.0-4.0); HEMATOCRIT 30.5 % (35.0-46.0); LYMPH % 31.5 % (9.0-44.0); LYMPHOCYTE # 1.4 TH/MM3 (1.0-4.8); MEAN CELL VOLUME 89.5 FL (80.0-100.0); MEAN CORPUSCULAR HEMOGLOBIN 30.1 PG (27.0-34.0); MEAN CORPUSCULAR HGB CONC 33.7 % (32.0-36.0); MONO % 18.6 % (0.0-8.0); NEUT % 45.1 % (16.0-70.0); PLATELET COUNT 186 TH/MM3 (150-450); RED CELL DISTRIBUTION WIDTH 14.5 % (11.6-17.2); WHITE BLOOD COUNT 4.5 TH/MM3 (4.0-11.0)
[2016-09-04 05:39] LABS: HEMO FLAGS AUTO DIFF
[2016-09-04] MEDS: HYDROmorphone HCL PCA 6 MG/30 ML IV SCH ×2 (05:41→16:19)
[2016-09-04 05:51] LABS: BICARBONATE 29.5 MEQ/L (21.0-32.0); POTASSIUM 3.8 MEQ/L (3.5-5.1)
[2016-09-04] MEDS: PCA - TOTAL MG DILAUDID DELIVERED PER SHIFT OTHER SCH ×3 (05:54→21:23)
[2016-09-04 06:31] LABS: BANDS 3 % (0-6); BASOPHILS 1 % (0-2); EOSINOPHILS 3 % (0-4); NEUTROPHIL # MANUAL DIFF 2.1 TH/MM3 (1.8-7.7); POLYS (SEG NEUTROPHILS) 44 % (16-70); WBC DIFF SAMPLE 100
[2016-09-04 06:32] LABS: PLATELET ESTIMATE SMEAR NORMAL (NORMAL); PLATELET MORPHOLOGY NORMAL (NORMAL); SCAN/DIFF FINAL DIFF MANUAL
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
[2016-09-04 08:00] VITALS: BP 119/76; PULSE 78; RESP 16; TEMP 98.6; O2SAT 95
[2016-09-04] MEDS: BISACODYL 10 MG SUPP RECTAL SCH (09:00)
[2016-09-04] MEDS: DOCUSATE SODIUM 50 MG/SENNA 8.6 MG TAB PO SCH ×2 (09:00→21:22)
[2016-09-04] MEDS: CIPROFLOXACIN 400 MG PREMIX 200 ML IV SCH ×2 (09:27→20:58)
[2016-09-04] MEDS: POLYETHYLENE GLYCOL 17 GM PKG PO SCH ×2 (09:30→21:22)
[2016-09-04] MEDS: PANTOPRAZOLE SOD 40 MG DELAYED RELEASE TAB PO SCH (09:30)
[2016-09-04] MEDS: LACTULOSE SYRUP 20 GM/30 ML CUP PO SCH ×2 (09:30→21:22)
--- NOTE | 2016-09-04 09:34 | PD.ORT.PN ---
Subjective Subjective Remarks pain tolerable with meds Objective Vitals Vital Signs Date Time Temp Pulse Resp B/P Pulse Ox O2 Delivery O2 Flow Rate FiO2 09/04/16 07:35 Room Air 09/04/16 06:11 18 09/04/16 05:54 18 09/04/16 05:41 18 09/04/16 04:01 98.2 80 18 115/71 96 09/04/16 02:00 Room Air 09/04/16 00:05 99.7 76 18 112/68 96 09/03/16 22:00 18 09/03/16 20:36 18 09/03/16 20:05 98.7 77 17 122/70 96 09/03/16 18:11 98.4 78 18 118/69 98 09/03/16 16:00 98.5 68 13 111/64 99 09/03/16 16:00 68 09/03/16 14:18 16 09/03/16 14:00 74 09/03/16 12:14 16 09/03/16 12:00 97.8 68 19 107/64 98 09/03/16 12:00 68 09/03/16 10:00 88 I/O 09/03/16 09/03/16 09/03/16 09/04/16 09/04/16 09/04/16 07:00 15:00 23:00 07:00 15:00 23:00 Intake Total 904 ml 2371 ml 640 ml 416 ml Output Total 930 ml 135 ml 120 ml 50 ml Balance -26 ml 2236 ml 520 ml 366 ml Intake Oral 250 ml 1200 ml 240 ml 240 ml IV Total 654 ml 571 ml 400 ml 176 ml Other 600 ml Output Urine Total 600 ml Drainage Total 330 ml 110 ml 120 ml 50 ml Estimated Blood Loss 25 ml # Voids 4 1 3 # Bowel Movements 1 0 0 0 Result Diagram: 09/04/16 0500 09/04/16 0500 Objective Remarks RLE: +swelling and erythema of lower leg - improving. vacs present with good seal. NVI. no evidence of necrosis Assessment & Plan Assessment and Plan 1) Right Leg vibrio infection s/p I&D and vac application - POD 2 repeat I&D with vac changes POD 1 -NWB -maintain vacs at all time -infectious disease for IV Abx -NPO after midnight Monday Night -sign consents -plan for OR on Monday for I&D with Elan Valdez Sep 04, 2016 09:34
--- NOTE | 2016-09-04 10:04 | HHI.PR ---
Subjective Remarks in no acute distress. 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 afebrile. no other complaints. Objective Vitals Vital Signs Date Time Temp Pulse Resp B/P Pulse Ox O2 Delivery O2 Flow Rate FiO2 09/04/16 07:35 Room Air 09/04/16 06:11 18 09/04/16 05:54 18 09/04/16 05:41 18 09/04/16 04:01 98.2 80 18 115/71 96 09/04/16 02:00 Room Air 09/04/16 00:05 99.7 76 18 112/68 96 09/03/16 22:00 18 09/03/16 20:36 18 09/03/16 20:05 98.7 77 17 122/70 96 09/03/16 18:11 98.4 78 18 118/69 98 09/03/16 16:00 98.5 68 13 111/64 99 09/03/16 16:00 68 09/03/16 14:18 16 09/03/16 14:00 74 09/03/16 12:14 16 09/03/16 12:00 97.8 68 19 107/64 98 09/03/16 12:00 68 09/03/16 10:00 88 I/O 09/03/16 09/03/16 09/03/16 09/04/16 09/04/16 09/04/16 07:00 15:00 23:00 07:00 15:00 23:00 Intake Total 904 ml 2371 ml 640 ml 416 ml Output Total 930 ml 135 ml 120 ml 50 ml Balance -26 ml 2236 ml 520 ml 366 ml Intake Oral 250 ml 1200 ml 240 ml 240 ml IV Total 654 ml 571 ml 400 ml 176 ml Other 600 ml Output Urine Total 600 ml Drainage Total 330 ml 110 ml 120 ml 50 ml Estimated Blood Loss 25 ml # Voids 4 1 3 # Bowel Movements 1 0 0 0 Result Diagram: 09/04/16 0500 09/04/16 0500 Imaging Last Impressions Chest X-Ray 08/30/16 1145 Signed Impressions: Service Date/Time: Tuesday, August 30, 2016 11:52 - CONCLUSION: Right jugular line as above. No evidence of pneumothorax. Buck Garza MD Lower Extremity MRI 08/30/16 0000 Signed Impressions: Service Date/Time: Tuesday, August 30, 2016 20:23 - CONCLUSION: Edema within the deep subcutaneous fat abutting the muscular compartments. Edema within the muscular compartments is not seen. Early compartment syndrome cannot be totally ruled out with MR. Evan Vargas MD Objective Remarks GENERAL: This is a well-nourished, well-developed patient, in no apparent distress. CARDIOVASCULAR: Regular rate and regular rhythm without murmurs, gallops, or rubs. RESPIRATORY: Clear to auscultation. Breath sounds equal bilaterally. No wheezes , rales, or rhonchi. GASTROINTESTINAL: Abdomen soft, non-tender, nondistended. Normal, active bowel sounds MUSCULOSKELETAL: wound vac in place on right lower extremity NEURO: Alert & Oriented x4 to person, place, time, situation. Moves all ext x4 Procedures I/D of the right leg/ wound vac placement central line placement Medications and IVs Current Medications Sodium Chloride (NS 1000 ml Inj) 1,000 ml @ 1,000 mls/hr Q1H ONCE IV Last administered on 08/30/16 08:45; Start 08/30/16 at 08:11; Stop 08/30/16 at 09:10; Status DC Sodium Chloride (NS Flush) 2 ml UNSCH PRN IVF FLUSH AFTER USING IV ACCESS; Start 08/30/16 at 08:15 Ondansetron HCl (Zofran Inj) 4 mg ONCE ONCE IM Last administered on 08/30/16 08:45; Start 08/30/16 at 08:15; Stop 08/30/16 at 08:16; Status DC Morphine Sulfate 4 mg 4 mg ONCE ONCE IV PUSH ; Start 08/30/16 at 08:15; Stop 08/30/16 at 08:16; Status DC Vancomycin HCl 1050 mg/Sodium Chloride 260.5 ml @ 250 mls/hr ONCE ONCE IV ; Start 08/30/16 at 08:30; Stop 08/30/16 at 09:32; Status Cancel Piperacillin Sod/ Tazobactam Sod 50 ml @ 100 mls/hr ONCE ONCE IV Last administered on 08/30/16 08:45; Start 08/30/16 at 08:30; Stop 08/30/16 at 08:59; Status DC Sodium Chloride (NS 1000 ml Inj) 1,000 ml @ 999 mls/hr BOLUS ONCE IV Last administered on 08/30/16 08:45; Start 08/30/16 at 08:30; Stop 08/30/16 at 09:30; Status DC Tetanus/ Diphtheria Toxoids (Tetanus/ Diphtheria Tox Adult) 0.5 ml ONCE ONCE IM Last administered on 08/30/16 08:47; Start 08/30/16 at 08:45; Stop 08/30/16 at 08:46; Status DC Fentanyl Citrate (fentaNYL INJ) 50 mcg ONCE ONCE IV PUSH ; Start 08/30/16 at 08: 45; Stop 08/30/16 at 08:46; Status Cancel Fentanyl Citrate 50 mcg 50 mcg ONCE ONCE IV Last administered on 08/30/16 11: 54; Start 08/30/16 at 09:00; Stop 08/30/16 at 09:01; Status DC Vancomycin HCl 1000 mg/Sodium Chloride 250 ml @ 250 mls/hr ONCE ONCE IV Last administered on 08/30/16 09:31; Start 08/30/16 at 09:15; Stop 08/30/16 at 10:14; Status DC Levofloxacin/ Dextrose 150 ml @ 100 mls/hr ONCE ONCE IV Last administered on 08/30/16 11:46; Start 08/30/16 at 09:15; Stop 08/30/16 at 10:44; Status DC Sodium Chloride 1,000 ml @ 999 mls/hr BOLUS ONCE IV Last administered on 10:00; Start 08/30/16 at 10:00; Stop 08/30/16 at 11:00; Status DC Norepinephrine Bitartrate (Levophed-Dextrose Drip) 250 ml @ 0 mls/hr TITRATE IV ; Start 08/30/16 at 11:00; Stop 08/30/16 at 23:48; Status DC Magnesium Oxide 800 mg 800 mg UNSCH PRN PO For Magnesium 1.2 - 1.6 mg/dL; Start 08/30/16 at 11:15 Magnesium Sulfate 4 gm/Sodium Chloride 100 ml @ 50 mls/hr UNSCH PRN IV For Magnesium 0.9 - 1.1 mg/dL; Start 08/30/16 at 11:15 Magnesium Sulfate 2 gm/Sodium Chloride 100 ml @ 50 mls/hr UNSCH PRN IV For Magnesium 1.2 - 1.6 mg/dL; Start 08/30/16 at 11:15 Potassium Chloride 100 ml @ 50 mls/hr Q2H PRN IV For Potassium 2.8 - 3.2 mEq/L ; Start 08/30/16 at 11:15 Potassium Chloride 100 ml @ 50 mls/hr Q2H PRN IV For Potassium 3.3 - 3.5 mEq/L ; Start 08/30/16 at 11:15 Potassium Chloride 100 ml @ 50 mls/hr Q2H PRN IV For Potassium 2.8 - 3.2 mEq/L ; Start 08/30/16 at 11:15 Potassium Chloride (KCl 40 Meq Premix Inj) 100 ml @ 25 mls/hr UNSCH PRN IV For Potassium 3.3 - 3.5 mEq/L; Start 08/30/16 at 11:15 Potassium Phosphate (K-Phos) 2,000 mg Q4H PRN PO For Phosphorus < 2.5 mg/dL; Start 08/30/16 at 11:15 Potassium Phosphate 2000 mg 2,000 mg UNSCH PRN PO/TUBE SEE LABEL COMMENTS; Start 08/30/16 at 11:15 Potassium Phosphate 30 mmol/ Sodium Chloride 260 ml @ 42 mls/hr UNSCH PRN IV SEE LABEL COMMENTS; Start 08/30/16 at 11:15 Sodium Phosphate/ Sodium Chloride (Sodium Phosphate Inj/NS 250 ml Inj) 250 ml @ 42 mls/hr UNSCH PRN IV For Phosphorus < 2.5 mg/dL; Start 08/30/16 at 11:15 Nicotine (Habitrol 14 Mg Patch.24 Hr) 1 patch DAILY T-DERMAL Last administered on 08/31/16 09:08; Start 08/30/16 at 12:15; Stop 09/01/16 at 20:28; Status DC Miscellaneous Information 1 1 DAILY T-DERMAL Last administered on 08/31/16 09: 00; Start 08/31/16 at 09:00; Stop 09/02/16 at 07:35; Status DC Levofloxacin/ Dextrose 150 ml @ 100 mls/hr Q24H IV Last administered on 12:08; Start 08/31/16 at 12:00; Stop 09/01/16 at 16:38; Status DC Piperacillin Sod/ Tazobactam Sod 50 ml @ 100 mls/hr Q6H IV Last administered on 08/31/16 02:13; Start 08/30/16 at 15:00; Stop 08/31/16 at 06:30; Status DC Pharmacy Profile Note (Vancomycin Consult Pharmacy) 0 ml @ 0 mls/hr UNSCH OTHER ; Start 08/30/16 at 12:15; Stop 09/01/16 at 16:38; Status DC Pantoprazole Sodium (Protonix) 40 mg DAILY PO Last administered on 09/04/16 09: 30; Start 08/30/16 at 12:15 Enoxaparin Sodium 40 mg 40 mg Q24H SQ Last administered on 09/03/16 13:57; Start 08/30/16 at 13:00 Potassium Chloride/Sodium Chloride (NS + KCl 20 Meq Inj) 1,000 ml @ 100 mls/hr Q10H IV Last administered on 09/01/16 15:26; Start 08/30/16 at 12:15; Stop at 16:32; Status DC Albuterol/ Ipratropium (Duoneb Neb) 1 ampule Q6HR NEB PRN NEB SOB/WHEEZING; Start 08/30/16 at 12:15 Acetaminophen (Tylenol) 650 mg Q6H PRN PO PAIN SCALE 1 TO 2; Start 08/30/16 at 12:30; Stop 09/02/16 at 07:32; Status DC Ketorolac Tromethamine (Toradol Inj) 30 mg Q6H PRN IVP Pain 6-10;if unable to take PO Last administered on 08/30/16 13:23; Start 08/30/16 at 12:30; Stop at 06:05; Status DC Acetaminophen/ Hydrocodone Bitart ([place]iler 5-325 Mg) 1 tab Q4H PRN PO PAIN SCALE 3 TO 5; Start 08/30/16 at 12:30; Stop 09/02/16 at 07:18; Status DC Acetaminophen/ Hydrocodone Bitart ([place] 10-325 Mg) 1 tab Q4H PRN PO PAIN SCALE 6 TO 10 Last administered on 09/02/16 07:00; Start 08/30/16 at 12:30; Stop 09/02/16 at 07:18; Status DC Morphine Sulfate (Morphine Inj) 4 mg Q3H PRN IV PUSH BREAKTHROUGH PAIN Last administered on 09/01/16 15:27; Start 08/30/16 at 13:00; Stop 09/02/16 at 07:32; Status DC Naloxone HCl 0.4 mg 0.4 mg UNSCH PRN IV SEE LABEL COMMENTS; Start 08/30/16 at 12 :30; Stop 09/02/16 at 07:29; Status DC Vancomycin HCl/ Sodium Chloride (Vancomycin Inj/ NS 250 ml Inj) 250 ml @ 250 mls/hr Q12H IV Last administered on 08/30/16 22:24; Start 08/30/16 at 22:00; Stop 08/31/16 at 07:25; Status DC Miscellaneous Information SPECIFIC LAB TO BE DRAWN:VANCO TROUGH DATE... ONCE ONCE .XX ; Start 09/01/16 at 09:45; Stop 09/01/16 at 09:45; Status DC Miscellaneous Information Patient in critical care unit? Ass... [id number] .XX Last administered on 08/30/16 13:50; Start 08/30/16 at 13:45 Chlorhexidine Gluconate (Chlorhexidine 2% Cloth) 3 pack DAILY@04 TOPICAL Last administered on 09/03/16 04:00; Start 08/31/16 at 04:00; Stop 09/04/16 at 04:01; Status DC Chlorhexidine Gluconate (Chlorhexidine 2% Cloth) 3 pack UNSCH PRN TOPICAL HYGIENIC CARE; Start 08/30/16 at 13:45; Stop 09/04/16 at 13:33 Hydromorphone HCl (Dilaudid Pf Inj) 1 mg STAT ONCE IV PUSH Last administered on 08/30/16 16:13; Start 08/30/16 at 16:00; Stop 08/30/16 at 16:05; Status DC Bacitracin (Baciguent Oint) 1 applic Q12HR TOPICAL Last administered on 20:51; Start 08/30/16 at 21:00 Gadodiamide 15 ml 15 ml STK-MED ONCE IV Last administered on 08/30/16 23:13; Start 08/30/16 at 23:13; Stop 08/30/16 at 23:14; Status DC Lactated Ringer's 1,000 ml @ 999 mls/hr BOLUS ONCE IV Last administered on 00:29; Start 08/30/16 at 23:45; Stop 08/31/16 at 00:45; Status DC Vasopressin 40 units/Dextrose 100 ml @ 4.5 mls/hr [id number] IV Last administered on 08/31/16 17:29; Start 08/30/16 at 23:45; Stop 09/02/16 at 07:18; Status DC Norepinephrine Bitartrate (Levophed-Dextrose Drip) 250 ml @ 0 mls/hr TITRATE IV Last administered on 08/31/16 07:06; Start 08/31/16 at 00:00 Bisacodyl (Dulcolax Supp) 10 mg DAILY RECTAL ; Start 08/31/16 at 09:00 Polyethylene Glycol (Miralax) 17 gm BID PO Last administered on 09/04/16 09:30 ; Start 08/31/16 at 09:00 Lactulose (Lactulose Liq) 30 ml BID PO Last administered on 09/04/16 09:30; Start 08/31/16 at 09:00 Senna/Docusate Sodium 1 tab 1 tab BID PO Last administered on 09/03/16 20:37; Start 08/31/16 at 09:00 Piperacillin Sod/ Tazobactam Sod 100 ml @ 200 mls/hr Q6HR IV ; Start 08/31/16 at 06:30; Stop 08/31/16 at 07:07; Status DC Piperacillin Sod/ Tazobactam Sod 100 ml @ 200 mls/hr Q6H IV Last administered on 09/01/16 14:12; Start 08/31/16 at 08:00; Stop 09/01/16 at 16:38; Status DC Vancomycin HCl/ Sodium Chloride (Vancomycin Inj/ NS 250 ml Inj) 262.5 ml @ 250 mls/hr Q8H IV Last administered on 09/01/16 12:05; Start 08/31/16 at 09:00; Stop 09/01/16 at 13:32; Status DC Miscellaneous Information SPECIFIC LAB TO BE DRAWN:VANCOMYCIN TROUGH DATE TO... ONCE ONCE .XX ; Start 09/01/16 at 08:45; Stop 09/01/16 at 08:46; Status DC Vancomycin HCl/ Sodium Chloride (Vancomycin Inj/ NS 500 ml Inj) 514 ml @ 250 mls/hr Q8H IV ; Start 09/01/16 at 17:00; Stop 09/01/16 at 17:00; Status DC Miscellaneous Information SPECIFIC LAB TO BE DRAWN:VANCO TROUGH DATE... ONCE ONCE .XX ; Start 09/02/16 at 16:45; Stop 09/02/16 at 16:46; Status Cancel Doxycycline Hyclate 100 mg/ Sodium Chloride 100 ml @ 100 mls/hr Q12H IV Last administered on 09/04/16 05:16; Start 09/01/16 at 18:00 Ceftazidime 2000 mg/Sodium Chloride 100 ml @ 200 mls/hr Q8H IV Last administered on 09/04/16 00:21; Start 09/01/16 at 17:00 Dextrose/Sodium Chloride (D5W-NS 1000 ml Inj) 1,000 ml @ 75 mls/hr [id number] IV Last administered on 09/02/16 20:40; Start 09/01/16 at 17:15 Gentamicin Sulfate (Gentamicin Inj) 240 mg STK-MED ONCE .ROUTE Last administered on 09/03/16 08:08; Start 09/01/16 at 18:21; Stop 09/01/16 at 18:22; Status DC Bupivacaine HCl/ Epinephrine Bitart (Sensorcaine-Epi 0.5% 50 ml Inj) 50 ml STK- MED ONCE .ROUTE ; Start 09/01/16 at 19:44; Stop 09/01/16 at 19:45; Status DC Famotidine (Pepcid Inj) 20 mg NOW ONCE IV Last administered on 09/01/16 20:30 ; Start 09/01/16 at 21:00; Stop 09/01/16 at 21:01; Status DC Citric Acid/ Sodium Citrate (Bicitra Liq) 30 ml ONCE ONCE PO Last administered on 09/01/16 20:30; Start 09/01/16 at 21:00; Stop 09/01/16 at 21:01; Status DC Midazolam HCl (Versed Inj) 2 mg ONCE ONCE IV Last administered on 09/01/16 20: 30; Start 09/01/16 at 21:00; Stop 09/01/16 at 21:01; Status DC Midazolam HCl (Versed Inj) 2 mg STK-MED ONCE .ROUTE ; Start 09/01/16 at 20:18; Stop 09/01/16 at 20:19; Status DC Famotidine (Pepcid Inj) 20 mg STK-MED ONCE .ROUTE ; Start 09/01/16 at 20:18; Stop 09/01/16 at 20:19; Status DC Fentanyl Citrate 250 mcg 250 mcg STK-MED ONCE .ROUTE ; Start 09/01/16 at 20:26; Stop 09/01/16 at 20:27; Status DC Ciprofloxacin/ Dextrose (Cipro 400 Mg Premix) 200 ml @ 200 mls/hr Q12H IV Last administered on 09/04/16 09:27; Start 09/01/16 at 21:00 Diphenhydramine HCl (Benadryl) 25 mg Q6H PRN PO ITCHING; Start 09/01/16 at 20:45 Morphine Sulfate (Morphine Inj) 4 mg Q3H PRN IV PUSH break thru pain Last administered on 09/02/16 04:53; Start 09/01/16 at 20:45; Stop 09/02/16 at 07:33; Status DC Acetaminophen/ Hydrocodone Bitart ([place]iler 10-325 Mg) 1 tab Q3H PRN PO pain 3<10 ; Start 09/01/16 at 20:45; Stop 09/02/16 at 07:19; Status DC Doxycycline Hyclate (Vibramycin Inj) 100 mg STK-MED ONCE IV Last administered on 09/01/16 21:15; Start 09/01/16 at 21:15; Stop 09/01/16 at 21:53; Status DC Ceftazidime (Fortaz Inj) 2,000 mg STK-MED ONCE IM Last administered on 21:15; Start 09/01/16 at 21:15; Stop 09/01/16 at 21:53; Status DC Ciprofloxacin (Cipro Liq) 10,000 mg STK-MED ONCE .XX Last administered on 21:15; Start 09/01/16 at 21:15; Stop 09/01/16 at 21:53; Status DC Morphine Sulfate (*morphine INJ PERIprocedure ONLY) 8 mg STK-MED ONCE .ROUTE Last administered on 09/01/16 22:06; Start 09/01/16 at 22:06; Stop 09/01/16 at 22: 07; Status DC Miscellaneous Information ALL NURSING DEPARTME... UNSCH PRN .XX SEE LABEL COMMENTS; Start 09/01/16 at 22:00; Stop 09/02/16 at 21:59; Status DC Morphine Sulfate (*morphine INJ PERIprocedure ONLY) 8 mg STK-MED ONCE .ROUTE Last administered on 09/01/16 22:17; Start 09/01/16 at 22:17; Stop 09/01/16 at 22: 18; Status DC Morphine Sulfate (*morphine INJ PERIprocedure ONLY) 8 mg STK-MED ONCE .ROUTE Last administered on 09/01/16 22:27; Start 09/01/16 at 22:27; Stop 09/01/16 at 22: 28; Status DC Hydromorphone HCl (*DILAUDID PF INJ PERIprocedural ONLY) 1 mg STK-MED ONCE .ROUTE Last administered on 09/01/16 22:59; Start 09/01/16 at 22:59; Stop at 23:00; Status DC Naloxone HCl (Narcan Inj) 0.4 mg UNSCH PRN IV RESPIRATORY RATE LESS THAN 10; Start 09/02/16 at 07:00 Hydromorphone HCl (Dilaudid SENIOR CONSTRUCTION MANAGER Inj) 6 mg UNSCH IV Last administered on 05:41; Start 09/02/16 at 07:30 SENIOR CONSTRUCTION MANAGER Dosage Infused (Pha) 1 Q8HR OTHER Last administered on 09/04/16 05:54; Start 09/02/16 at 07:30 Acetaminophen (Tylenol) 650 mg Q4H PRN PO fever; Start 09/02/16 at 08:00 Hydromorphone HCl 1 mg 1 mg Q3HR PRN IV PUSH breakthrough pain; Start 09/02/16 at 11:00 Lactated Ringer's (Lr 1000 ml Inj) 1,000 ml @ 75 mls/hr [id number] IV Last administered on 09/03/16 23:17; Start 09/03/16 at 00:00 Gentamicin Sulfate (Gentamicin Inj) 240 mg STK-MED ONCE .ROUTE Last administered on 09/03/16 08:10; Start 09/03/16 at 08:14; Stop 09/03/16 at 08:15; Status DC Morphine Sulfate (*morphine INJ PERIprocedure ONLY) 8 mg STK-MED ONCE .ROUTE Last administered on 09/03/16 08:52; Start 09/03/16 at 08:52; Stop 09/03/16 at 08: 53; Status DC Miscellaneous Information ALL NURSING DEPARTME... UNSCH PRN .XX SEE LABEL COMMENTS; Start 09/03/16 at 09:00; Stop 09/04/16 at 08:59; Status DC Midazolam HCl (Versed Inj) 2 mg STK-MED ONCE .ROUTE ; Start 09/03/16 at 08:56; Stop 09/03/16 at 08:57; Status DC Fentanyl Citrate (fentaNYL INJ) 250 mcg STK-MED ONCE .ROUTE ; Start 09/03/16 at 08:56; Stop 09/03/16 at 08:57; Status DC Morphine Sulfate 8 mg 8 mg STK-MED ONCE .ROUTE Last administered on 09/03/16 09 :05; Start 09/03/16 at 09:04; Stop 09/03/16 at 09:05; Status DC Magnesium Sulfate/ Dextrose (Magnesium Sulfate 1 Gm Premix) 100 ml @ 100 mls/ hr Q1H IV Last administered on 09/03/16 11:11; Start 09/03/16 at 10:00; Stop 09/03/16 at 11:59; Status DC Hydromorphone HCl (*DILAUDID PF INJ PERIprocedural ONLY) 1 mg STK-MED ONCE .ROUTE Last administered on 09/03/16 09:15; Start 09/03/16 at 09:08; Stop at 09:09; Status DC Date of Insertion: Aug 30, 2016 Line: Central Venous Catheter Side: Right Location: Internal, Jugular A/P Assessment and Plan A/P s/p Septic Shock - vibrio Right lower extremity necrotizing fasciitis Lactic acid acidosis-resolved -s/p I/D of the right leg and wound vac placement -continue Ceftazidime and Doxycycline per ID -continue with pain control Infectious disease and ortho following Chronic tobacco use, currently using nicotine with vaporizer -Incentive spirometry every hour while awake --Tobacco sensation will be encouraged s/p Septic Shock-resolved Echocardiogram 09/12 - EF is 55-60%. No regional wall motion abnormality. Hepatitis C Protonix for GI protection Regular diet --Radha-Colace twice a day, lactulose twice a day and MiraLAX twice a day for bowel regimen She does not know her genotype for hepatitis C but states her viral load was undetectable last check 6 months ago. f/u as outpatient Acute kidney injury-resolved Monitor renal function. PROPHYLAXIS DVT prevention with Sq Lovenox GI protection with Protonix LINES 08/30 [facility] TLC-day #5 CODE STATUS Full code Joel Carr MD Sep 04, 2016 10:04
[2016-09-04] MEDS: BACITRACIN TOP OINT 15 GM TUBE TOPICAL SCH ×2 (10:50→21:23)
[2016-09-04] MEDS: DEXT 5%-NACL 0.9% 1000 ML INJ 1,000 ML IV SCH (11:55)
[2016-09-04 12:30] VITALS: BP 107/56; PULSE 70; RESP 16; TEMP 97; O2SAT 92
[2016-09-04] MEDS: ENOXAPARIN SODIUM 40 MG/0.4 ML SYRINGE SQ SCH (13:00)
[2016-09-04 16:00] VITALS: BP 103/69; PULSE 89; RESP 16; TEMP 98.4; O2SAT 97
[2016-09-04] MEDS: LACTATED RINGER'S 1000 ML INJ 1,000 ML IV SCH (16:00)
[2016-09-04 20:55] VITALS: BP 153/69; PULSE 78; RESP 16; TEMP 98.9; O2SAT 98
[2016-09-04] MEDS: diphenhydrAMINE HCL 25 MG CAP PO PRN (22:22)
[2016-09-05] MEDS: LACTATED RINGER'S 1000 ML INJ 1,000 ML IV SCH ×3 (00:21→22:23)
[2016-09-05] MEDS: DEXT 5%-NACL 0.9% 1000 ML INJ 1,000 ML IV SCH (00:21)
[2016-09-05] MEDS: cefTAZidime INJ 2,000 MG in SODIUM CHLORIDE 0.9% INJ 100 ML IV SCH ×4 (00:21→23:42)
[2016-09-05 00:50] VITALS: BP 107/59; PULSE 76; RESP 16; TEMP 99.8; O2SAT 93
[2016-09-05 04:50] VITALS: BP 118/70; PULSE 77; RESP 16; TEMP 97.6; O2SAT 99
[2016-09-05] MEDS: DOXYCYCLINE INJ 100 MG in SODIUM CHLORIDE 0.9% INJ 100 ML IV SCH ×2 (05:12→16:52)
[2016-09-05] MEDS: PCA - TOTAL MG DILAUDID DELIVERED PER SHIFT OTHER SCH ×3 (06:00→22:00)
[2016-09-05] MEDS: HYDROmorphone HCL PCA 6 MG/30 ML IV SCH ×3 (06:09→23:46)
--- NOTE | 2016-09-05 06:47 | PD.ORT.PN ---
Subjective Subjective Remarks s/p I&D with fasciotomy and vac application right leg -doing well. pain improved Objective Vitals Vital Signs Date Time Temp Pulse Resp B/P Pulse Ox O2 Delivery O2 Flow Rate FiO2 09/05/16 04:50 97.6 77 16 118/70 99 09/05/16 00:50 99.8 76 16 107/59 93 09/04/16 20:55 98.9 78 16 153/69 98 09/04/16 17:22 16 09/04/16 16:19 16 09/04/16 16:00 98.4 89 16 103/69 97 09/04/16 14:00 16 09/04/16 12:30 97.0 70 16 107/56 92 09/04/16 08:00 98.6 78 16 119/76 95 09/04/16 07:35 Room Air I/O 09/04/16 09/04/16 09/04/16 09/05/16 09/05/16 09/05/16 07:00 15:00 23:00 07:00 15:00 23:00 Intake Total 416 ml 600 ml 1177 ml Output Total 50 ml 100 ml Balance 366 ml 600 ml 1077 ml Intake Oral 240 ml 600 ml 480 ml IV Total 176 ml 697 ml Drainage Total 50 ml 100 ml # Voids 3 4 3 # Bowel Movements 0 0 0 Result Diagram: 09/04/16 0500 09/05/16 0519 Objective Remarks RLE: +swelling and erythema of lower leg - improving. vacs present with good seal. NVI. no evidence of necrosis Assessment & Plan Assessment and Plan 1) Right Leg vibrio infection s/p I&D and vac application - POD 4 repeat I&D with vac changes POD 2 -NWB -maintain vacs at all time -infectious disease for IV Abx -surgery this AM for repeat I&D Irving Beasley Sep 05, 2016 06:47
--- NOTE | 2016-09-05 07:42 | HHI.PR ---
Subjective Remarks resting in no acute distress. complaining of pain to the right leg which is worse at night. afebrile. no other complaints. Objective Vitals Vital Signs Date Time Temp Pulse Resp B/P Pulse Ox O2 Delivery O2 Flow Rate FiO2 09/05/16 04:50 97.6 77 16 118/70 99 09/05/16 00:50 99.8 76 16 107/59 93 09/04/16 20:55 98.9 78 16 153/69 98 09/04/16 17:22 16 09/04/16 16:19 16 09/04/16 16:00 98.4 89 16 103/69 97 09/04/16 14:00 16 09/04/16 12:30 97.0 70 16 107/56 92 09/04/16 08:00 98.6 78 16 119/76 95 I/O 09/04/16 09/04/16 09/04/16 09/05/16 09/05/16 09/05/16 07:00 15:00 23:00 07:00 15:00 23:00 Intake Total 416 ml 600 ml 1177 ml 373 ml Output Total 50 ml 100 ml 75 ml Balance 366 ml 600 ml 1077 ml 298 ml Intake Oral 240 ml 600 ml 480 ml IV Total 176 ml 697 ml 373 ml Drainage Total 50 ml 100 ml 75 ml # Voids 3 4 3 # Bowel Movements 0 0 0 Result Diagram: 09/04/16 0500 09/05/16 0519 Imaging Last Impressions Chest X-Ray 08/30/16 1145 Signed Impressions: Service Date/Time: Tuesday, August 30, 2016 11:52 - CONCLUSION: Right jugular line as above. No evidence of pneumothorax. Buck Garza MD Lower Extremity MRI 08/30/16 0000 Signed Impressions: Service Date/Time: Tuesday, August 30, 2016 20:23 - CONCLUSION: Edema within the deep subcutaneous fat abutting the muscular compartments. Edema within the muscular compartments is not seen. Early compartment syndrome cannot be totally ruled out with MR. Evan Vargas MD Objective Remarks GENERAL: This is a well-nourished, well-developed patient, in no apparent distress. CARDIOVASCULAR: Regular rate and regular rhythm without murmurs, gallops, or rubs. RESPIRATORY: Clear to auscultation. Breath sounds equal bilaterally. No wheezes , rales, or rhonchi. GASTROINTESTINAL: Abdomen soft, non-tender, nondistended. Normal, active bowel sounds MUSCULOSKELETAL: wound vac in place on right lower extremity NEURO: Alert & Oriented x4 to person, place, time, situation. Moves all ext x4 Procedures I/D of the right leg/ wound vac placement central line placement Medications and IVs Current Medications Sodium Chloride (NS 1000 ml Inj) 1,000 ml @ 1,000 mls/hr Q1H ONCE IV Last administered on 08/30/16 08:45; Start 08/30/16 at 08:11; Stop 08/30/16 at 09:10; Status DC Sodium Chloride (NS Flush) 2 ml UNSCH PRN IVF FLUSH AFTER USING IV ACCESS; Start 08/30/16 at 08:15 Ondansetron HCl (Zofran Inj) 4 mg ONCE ONCE IM Last administered on 08/30/16 08:45; Start 08/30/16 at 08:15; Stop 08/30/16 at 08:16; Status DC Morphine Sulfate 4 mg 4 mg ONCE ONCE IV PUSH ; Start 08/30/16 at 08:15; Stop 08/30/16 at 08:16; Status DC Vancomycin HCl 1050 mg/Sodium Chloride 260.5 ml @ 250 mls/hr ONCE ONCE IV ; Start 08/30/16 at 08:30; Stop 08/30/16 at 09:32; Status Cancel Piperacillin Sod/ Tazobactam Sod 50 ml @ 100 mls/hr ONCE ONCE IV Last administered on 08/30/16 08:45; Start 08/30/16 at 08:30; Stop 08/30/16 at 08:59; Status DC Sodium Chloride (NS 1000 ml Inj) 1,000 ml @ 999 mls/hr BOLUS ONCE IV Last administered on 08/30/16 08:45; Start 08/30/16 at 08:30; Stop 08/30/16 at 09:30; Status DC Tetanus/ Diphtheria Toxoids (Tetanus/ Diphtheria Tox Adult) 0.5 ml ONCE ONCE IM Last administered on 08/30/16 08:47; Start 08/30/16 at 08:45; Stop 08/30/16 at 08:46; Status DC Fentanyl Citrate (fentaNYL INJ) 50 mcg ONCE ONCE IV PUSH ; Start 08/30/16 at 08: 45; Stop 08/30/16 at 08:46; Status Cancel Fentanyl Citrate 50 mcg 50 mcg ONCE ONCE IV Last administered on 08/30/16 11: 54; Start 08/30/16 at 09:00; Stop 08/30/16 at 09:01; Status DC Vancomycin HCl 1000 mg/Sodium Chloride 250 ml @ 250 mls/hr ONCE ONCE IV Last administered on 08/30/16 09:31; Start 08/30/16 at 09:15; Stop 08/30/16 at 10:14; Status DC Levofloxacin/ Dextrose 150 ml @ 100 mls/hr ONCE ONCE IV Last administered on 08/30/16 11:46; Start 08/30/16 at 09:15; Stop 08/30/16 at 10:44; Status DC Sodium Chloride 1,000 ml @ 999 mls/hr BOLUS ONCE IV Last administered on 10:00; Start 08/30/16 at 10:00; Stop 08/30/16 at 11:00; Status DC Norepinephrine Bitartrate (Levophed-Dextrose Drip) 250 ml @ 0 mls/hr TITRATE IV ; Start 08/30/16 at 11:00; Stop 08/30/16 at 23:48; Status DC Magnesium Oxide 800 mg 800 mg UNSCH PRN PO For Magnesium 1.2 - 1.6 mg/dL; Start 08/30/16 at 11:15 Magnesium Sulfate 4 gm/Sodium Chloride 100 ml @ 50 mls/hr UNSCH PRN IV For Magnesium 0.9 - 1.1 mg/dL; Start 08/30/16 at 11:15 Magnesium Sulfate 2 gm/Sodium Chloride 100 ml @ 50 mls/hr UNSCH PRN IV For Magnesium 1.2 - 1.6 mg/dL; Start 08/30/16 at 11:15 Potassium Chloride 100 ml @ 50 mls/hr Q2H PRN IV For Potassium 2.8 - 3.2 mEq/L ; Start 08/30/16 at 11:15 Potassium Chloride 100 ml @ 50 mls/hr Q2H PRN IV For Potassium 3.3 - 3.5 mEq/L ; Start 08/30/16 at 11:15 Potassium Chloride 100 ml @ 50 mls/hr Q2H PRN IV For Potassium 2.8 - 3.2 mEq/L ; Start 08/30/16 at 11:15 Potassium Chloride (KCl 40 Meq Premix Inj) 100 ml @ 25 mls/hr UNSCH PRN IV For Potassium 3.3 - 3.5 mEq/L; Start 08/30/16 at 11:15 Potassium Phosphate (K-Phos) 2,000 mg Q4H PRN PO For Phosphorus < 2.5 mg/dL; Start 08/30/16 at 11:15 Potassium Phosphate 2000 mg 2,000 mg UNSCH PRN PO/TUBE SEE LABEL COMMENTS; Start 08/30/16 at 11:15 Potassium Phosphate 30 mmol/ Sodium Chloride 260 ml @ 42 mls/hr UNSCH PRN IV SEE LABEL COMMENTS; Start 08/30/16 at 11:15 Sodium Phosphate/ Sodium Chloride (Sodium Phosphate Inj/NS 250 ml Inj) 250 ml @ 42 mls/hr UNSCH PRN IV For Phosphorus < 2.5 mg/dL; Start 08/30/16 at 11:15 Nicotine (Habitrol 14 Mg Patch.24 Hr) 1 patch DAILY T-DERMAL Last administered on 08/31/16 09:08; Start 08/30/16 at 12:15; Stop 09/01/16 at 20:28; Status DC Miscellaneous Information 1 1 DAILY T-DERMAL Last administered on 08/31/16 09: 00; Start 08/31/16 at 09:00; Stop 09/02/16 at 07:35; Status DC Levofloxacin/ Dextrose 150 ml @ 100 mls/hr Q24H IV Last administered on 12:08; Start 08/31/16 at 12:00; Stop 09/01/16 at 16:38; Status DC Piperacillin Sod/ Tazobactam Sod 50 ml @ 100 mls/hr Q6H IV Last administered on 08/31/16 02:13; Start 08/30/16 at 15:00; Stop 08/31/16 at 06:30; Status DC Pharmacy Profile Note (Vancomycin Consult Pharmacy) 0 ml @ 0 mls/hr UNSCH OTHER ; Start 08/30/16 at 12:15; Stop 09/01/16 at 16:38; Status DC Pantoprazole Sodium (Protonix) 40 mg DAILY PO Last administered on 09/04/16 09: 30; Start 08/30/16 at 12:15 Enoxaparin Sodium 40 mg 40 mg Q24H SQ Last administered on 09/03/16 13:57; Start 08/30/16 at 13:00 Potassium Chloride/Sodium Chloride (NS + KCl 20 Meq Inj) 1,000 ml @ 100 mls/hr Q10H IV Last administered on 09/01/16 15:26; Start 08/30/16 at 12:15; Stop at 16:32; Status DC Albuterol/ Ipratropium (Duoneb Neb) 1 ampule Q6HR NEB PRN NEB SOB/WHEEZING; Start 08/30/16 at 12:15 Acetaminophen (Tylenol) 650 mg Q6H PRN PO PAIN SCALE 1 TO 2; Start 08/30/16 at 12:30; Stop 09/02/16 at 07:32; Status DC Ketorolac Tromethamine (Toradol Inj) 30 mg Q6H PRN IVP Pain 6-10;if unable to take PO Last administered on 08/30/16 13:23; Start 08/30/16 at 12:30; Stop at 06:05; Status DC Acetaminophen/ Hydrocodone Bitart ([place] 5-325 Mg) 1 tab Q4H PRN PO PAIN SCALE 3 TO 5; Start 08/30/16 at 12:30; Stop 09/02/16 at 07:18; Status DC Acetaminophen/ Hydrocodone Bitart ([place] 10-325 Mg) 1 tab Q4H PRN PO PAIN SCALE 6 TO 10 Last administered on 09/02/16 07:00; Start 08/30/16 at 12:30; Stop 09/02/16 at 07:18; Status DC Morphine Sulfate (Morphine Inj) 4 mg Q3H PRN IV PUSH BREAKTHROUGH PAIN Last administered on 09/01/16 15:27; Start 08/30/16 at 13:00; Stop 09/02/16 at 07:32; Status DC Naloxone HCl 0.4 mg 0.4 mg UNSCH PRN IV SEE LABEL COMMENTS; Start 08/30/16 at 12 :30; Stop 09/02/16 at 07:29; Status DC Vancomycin HCl/ Sodium Chloride (Vancomycin Inj/ NS 250 ml Inj) 250 ml @ 250 mls/hr Q12H IV Last administered on 08/30/16 22:24; Start 08/30/16 at 22:00; Stop 08/31/16 at 07:25; Status DC Miscellaneous Information SPECIFIC LAB TO BE DRAWN:VANCO TROUGH DATE... ONCE ONCE .XX ; Start 09/01/16 at 09:45; Stop 09/01/16 at 09:45; Status DC Miscellaneous Information Patient in critical care unit? Ass... [id number] .XX Last administered on 08/30/16 13:50; Start 08/30/16 at 13:45 Chlorhexidine Gluconate (Chlorhexidine 2% Cloth) 3 pack DAILY@04 TOPICAL Last administered on 09/03/16 04:00; Start 08/31/16 at 04:00; Stop 09/04/16 at 04:01; Status DC Chlorhexidine Gluconate (Chlorhexidine 2% Cloth) 3 pack UNSCH PRN TOPICAL HYGIENIC CARE; Start 08/30/16 at 13:45; Stop 09/04/16 at 13:33; Status DC Hydromorphone HCl (Dilaudid Pf Inj) 1 mg STAT ONCE IV PUSH Last administered on 08/30/16 16:13; Start 08/30/16 at 16:00; Stop 08/30/16 at 16:05; Status DC Bacitracin (Baciguent Oint) 1 applic Q12HR TOPICAL Last administered on 10:50; Start 08/30/16 at 21:00 Gadodiamide 15 ml 15 ml STK-MED ONCE IV Last administered on 08/30/16 23:13; Start 08/30/16 at 23:13; Stop 08/30/16 at 23:14; Status DC Lactated Ringer's 1,000 ml @ 999 mls/hr BOLUS ONCE IV Last administered on 00:29; Start 08/30/16 at 23:45; Stop 08/31/16 at 00:45; Status DC Vasopressin 40 units/Dextrose 100 ml @ 4.5 mls/hr [id number] IV Last administered on 08/31/16 17:29; Start 08/30/16 at 23:45; Stop 09/02/16 at 07:18; Status DC Norepinephrine Bitartrate (Levophed-Dextrose Drip) 250 ml @ 0 mls/hr TITRATE IV Last administered on 08/31/16 07:06; Start 08/31/16 at 00:00 Bisacodyl (Dulcolax Supp) 10 mg DAILY RECTAL ; Start 08/31/16 at 09:00 Polyethylene Glycol (Miralax) 17 gm BID PO Last administered on 09/04/16 09:30 ; Start 08/31/16 at 09:00 Lactulose (Lactulose Liq) 30 ml BID PO Last administered on 09/04/16 09:30; Start 08/31/16 at 09:00 Senna/Docusate Sodium 1 tab 1 tab BID PO Last administered on 09/03/16 20:37; Start 08/31/16 at 09:00 Piperacillin Sod/ Tazobactam Sod 100 ml @ 200 mls/hr Q6HR IV ; Start 08/31/16 at 06:30; Stop 08/31/16 at 07:07; Status DC Piperacillin Sod/ Tazobactam Sod 100 ml @ 200 mls/hr Q6H IV Last administered on 09/01/16 14:12; Start 08/31/16 at 08:00; Stop 09/01/16 at 16:38; Status DC Vancomycin HCl/ Sodium Chloride (Vancomycin Inj/ NS 250 ml Inj) 262.5 ml @ 250 mls/hr Q8H IV Last administered on 09/01/16 12:05; Start 08/31/16 at 09:00; Stop 09/01/16 at 13:32; Status DC Miscellaneous Information SPECIFIC LAB TO BE DRAWN:VANCOMYCIN TROUGH DATE TO... ONCE ONCE .XX ; Start 09/01/16 at 08:45; Stop 09/01/16 at 08:46; Status DC Vancomycin HCl/ Sodium Chloride (Vancomycin Inj/ NS 500 ml Inj) 514 ml @ 250 mls/hr Q8H IV ; Start 09/01/16 at 17:00; Stop 09/01/16 at 17:00; Status DC Miscellaneous Information SPECIFIC LAB TO BE DRAWN:VANCO TROUGH DATE... ONCE ONCE .XX ; Start 09/02/16 at 16:45; Stop 09/02/16 at 16:46; Status Cancel Doxycycline Hyclate 100 mg/ Sodium Chloride 100 ml @ 100 mls/hr Q12H IV Last administered on 09/05/16 05:12; Start 09/01/16 at 18:00 Ceftazidime 2000 mg/Sodium Chloride 100 ml @ 200 mls/hr Q8H IV Last administered on 09/05/16 00:21; Start 09/01/16 at 17:00 Dextrose/Sodium Chloride (D5W-NS 1000 ml Inj) 1,000 ml @ 75 mls/hr [id number] IV Last administered on 09/02/16 20:40; Start 09/01/16 at 17:15 Gentamicin Sulfate (Gentamicin Inj) 240 mg STK-MED ONCE .ROUTE Last administered on 09/03/16 08:08; Start 09/01/16 at 18:21; Stop 09/01/16 at 18:22; Status DC Bupivacaine HCl/ Epinephrine Bitart (Sensorcaine-Epi 0.5% 50 ml Inj) 50 ml STK- MED ONCE .ROUTE ; Start 09/01/16 at 19:44; Stop 09/01/16 at 19:45; Status DC Famotidine (Pepcid Inj) 20 mg NOW ONCE IV Last administered on 09/01/16 20:30 ; Start 09/01/16 at 21:00; Stop 09/01/16 at 21:01; Status DC Citric Acid/ Sodium Citrate (Bicitra Liq) 30 ml ONCE ONCE PO Last administered on 09/01/16 20:30; Start 09/01/16 at 21:00; Stop 09/01/16 at 21:01; Status DC Midazolam HCl (Versed Inj) 2 mg ONCE ONCE IV Last administered on 09/01/16 20: 30; Start 09/01/16 at 21:00; Stop 09/01/16 at 21:01; Status DC Midazolam HCl (Versed Inj) 2 mg STK-MED ONCE .ROUTE ; Start 09/01/16 at 20:18; Stop 09/01/16 at 20:19; Status DC Famotidine (Pepcid Inj) 20 mg STK-MED ONCE .ROUTE ; Start 09/01/16 at 20:18; Stop 09/01/16 at 20:19; Status DC Fentanyl Citrate 250 mcg 250 mcg STK-MED ONCE .ROUTE ; Start 09/01/16 at 20:26; Stop 09/01/16 at 20:27; Status DC Ciprofloxacin/ Dextrose (Cipro 400 Mg Premix) 200 ml @ 200 mls/hr Q12H IV Last administered on 09/04/16 20:58; Start 09/01/16 at 21:00 Diphenhydramine HCl (Benadryl) 25 mg Q6H PRN PO ITCHING Last administered on 22:22; Start 09/01/16 at 20:45 Morphine Sulfate (Morphine Inj) 4 mg Q3H PRN IV PUSH break thru pain Last administered on 09/02/16 04:53; Start 09/01/16 at 20:45; Stop 09/02/16 at 07:33; Status DC Acetaminophen/ Hydrocodone Bitart ([place] 10-325 Mg) 1 tab Q3H PRN PO pain 3<10 ; Start 09/01/16 at 20:45; Stop 09/02/16 at 07:19; Status DC Doxycycline Hyclate (Vibramycin Inj) 100 mg STK-MED ONCE IV Last administered on 09/01/16 21:15; Start 09/01/16 at 21:15; Stop 09/01/16 at 21:53; Status DC Ceftazidime (Fortaz Inj) 2,000 mg STK-MED ONCE IM Last administered on 21:15; Start 09/01/16 at 21:15; Stop 09/01/16 at 21:53; Status DC Ciprofloxacin (Cipro Liq) 10,000 mg STK-MED ONCE .XX Last administered on 21:15; Start 09/01/16 at 21:15; Stop 09/01/16 at 21:53; Status DC Morphine Sulfate (*morphine INJ PERIprocedure ONLY) 8 mg STK-MED ONCE .ROUTE Last administered on 09/01/16 22:06; Start 09/01/16 at 22:06; Stop 09/01/16 at 22: 07; Status DC Miscellaneous Information ALL NURSING DEPARTME... UNSCH PRN .XX SEE LABEL COMMENTS; Start 09/01/16 at 22:00; Stop 09/02/16 at 21:59; Status DC Morphine Sulfate (*morphine INJ PERIprocedure ONLY) 8 mg STK-MED ONCE .ROUTE Last administered on 09/01/16 22:17; Start 09/01/16 at 22:17; Stop 09/01/16 at 22: 18; Status DC Morphine Sulfate (*morphine INJ PERIprocedure ONLY) 8 mg STK-MED ONCE .ROUTE Last administered on 09/01/16 22:27; Start 09/01/16 at 22:27; Stop 09/01/16 at 22: 28; Status DC Hydromorphone HCl (*DILAUDID PF INJ PERIprocedural ONLY) 1 mg STK-MED ONCE .ROUTE Last administered on 09/01/16 22:59; Start 09/01/16 at 22:59; Stop at 23:00; Status DC Naloxone HCl (Narcan Inj) 0.4 mg UNSCH PRN IV RESPIRATORY RATE LESS THAN 10; Start 09/02/16 at 07:00 Hydromorphone HCl (Dilaudid ARCHITECTURAL ADMINISTRATIVE ASSISTANT Inj) 6 mg UNSCH IV Last administered on 06:09; Start 09/02/16 at 07:30 ARCHITECTURAL ADMINISTRATIVE ASSISTANT Dosage Infused (Pha) 1 Q8HR OTHER Last administered on 09/05/16 06:00; Start 09/02/16 at 07:30 Acetaminophen (Tylenol) 650 mg Q4H PRN PO fever; Start 09/02/16 at 08:00 Hydromorphone HCl 1 mg 1 mg Q3HR PRN IV PUSH breakthrough pain; Start 09/02/16 at 11:00 Lactated Ringer's (Lr 1000 ml Inj) 1,000 ml @ 75 mls/hr [id number] IV Last administered on 09/03/16 23:17; Start 09/03/16 at 00:00 Gentamicin Sulfate (Gentamicin Inj) 240 mg STK-MED ONCE .ROUTE Last administered on 09/03/16 08:10; Start 09/03/16 at 08:14; Stop 09/03/16 at 08:15; Status DC Morphine Sulfate (*morphine INJ PERIprocedure ONLY) 8 mg STK-MED ONCE .ROUTE Last administered on 09/03/16 08:52; Start 09/03/16 at 08:52; Stop 09/03/16 at 08: 53; Status DC Miscellaneous Information ALL NURSING DEPARTME... UNSCH PRN .XX SEE LABEL COMMENTS; Start 09/03/16 at 09:00; Stop 09/04/16 at 08:59; Status DC Midazolam HCl (Versed Inj) 2 mg STK-MED ONCE .ROUTE ; Start 09/03/16 at 08:56; Stop 09/03/16 at 08:57; Status DC Fentanyl Citrate (fentaNYL INJ) 250 mcg STK-MED ONCE .ROUTE ; Start 09/03/16 at 08:56; Stop 09/03/16 at 08:57; Status DC Morphine Sulfate 8 mg 8 mg STK-MED ONCE .ROUTE Last administered on 09/03/16 09 :05; Start 09/03/16 at 09:04; Stop 09/03/16 at 09:05; Status DC Magnesium Sulfate/ Dextrose (Magnesium Sulfate 1 Gm Premix) 100 ml @ 100 mls/ hr Q1H IV Last administered on 09/03/16 11:11; Start 09/03/16 at 10:00; Stop 09/03/16 at 11:59; Status DC Hydromorphone HCl (*DILAUDID PF INJ PERIprocedural ONLY) 1 mg STK-MED ONCE .ROUTE Last administered on 09/03/16 09:15; Start 09/03/16 at 09:08; Stop at 09:09; Status DC Date of Insertion: Aug 30, 2016 Line: Central Venous Catheter Side: Right Location: Internal, Jugular A/P Assessment and Plan A/P s/p Septic Shock - vibrio Right lower extremity necrotizing fasciitis Lactic acid acidosis-resolved -s/p I/D of the right leg and wound vac placement -continue Ceftazidime,cipro and Doxycycline per ID -for repeated I/D of the right leg today -continue with pain control Infectious disease and ortho following Chronic tobacco use, currently using nicotine with vaporizer -Incentive spirometry every hour while awake --Tobacco sensation will be encouraged s/p Septic Shock-resolved Echocardiogram 09/12 - EF is 55-60%. No regional wall motion abnormality. Hepatitis C She does not know her genotype for hepatitis C but states her viral load was undetectable last check 6 months ago. f/u as outpatient Acute kidney injury-resolved Monitor renal function. PROPHYLAXIS DVT prevention with Sq Lovenox GI protection with Protonix CODE STATUS Full code Joel Carr MD Sep 05, 2016 07:42
[2016-09-05 08:00] VITALS: BP 116/68; PULSE 86; RESP 16; TEMP 97.5; O2SAT 97
[2016-09-05] MEDS: CIPROFLOXACIN 400 MG PREMIX 200 ML IV SCH ×2 (08:37→21:14)
[2016-09-05] MEDS: POLYETHYLENE GLYCOL 17 GM PKG PO SCH ×2 (08:40→21:14)
[2016-09-05] MEDS: BISACODYL 10 MG SUPP RECTAL SCH (08:40)
[2016-09-05] MEDS: LACTULOSE SYRUP 20 GM/30 ML CUP PO SCH ×2 (08:40→21:13)
[2016-09-05] MEDS: PANTOPRAZOLE SOD 40 MG DELAYED RELEASE TAB PO SCH (08:40)
[2016-09-05] MEDS: DOCUSATE SODIUM 50 MG/SENNA 8.6 MG TAB PO SCH ×2 (08:40→21:14)
[2016-09-05] MEDS: BACITRACIN TOP OINT 15 GM TUBE TOPICAL SCH ×2 (08:41→21:29)
[2016-09-05] MEDS ORDERED: GENTAMICIN SULFATE 80 MG/2 ML VIAL ONE (09:42)
[2016-09-05] MEDS ORDERED: GENTAMICIN SULFATE 80 MG/2 ML VIAL IRRIGATION ONE (10:48)
--- NOTE | 2016-09-05 11:12 | PD.OP ---
cc: Dirk Grey MD Operative Report Date of Surgery: Sep 05, 2016 Preoperative Diagnosis: Right leg infection, open right fasciotomy wound Postoperative Diagnosis: Procedure: Irrigation and debridement of right leg with excisional debridement, closure of right leg fasciotomy wound, application of wound VAC dressing Anesthesia: Gen. Surgeon: Dirk Grey Medical Social Worker(s): ROSALIE Bergman PA-C The surgical procedure was assisted by my physician trade sales assistant. My P.A. presence was necessary throughout this case for the manipulation and positioning of the surgical extremity. My P.A. was assisting me throughout the duration of this procedure. The skill set of a physician trade sales assistant was medically necessary to complete this procedure. During the surgical case the assembler surgical garment was working at the back table and the physician trade sales assistant was directly assisting me. Operation and Findings: Smitha returns operating room today for right leg debridement. Informed consent was obtained and operative site was marked. She is on scheduled antibiotics. She was given IV sedation and general anesthesia. Timeout procedure was performed. Right leg was prepped with alcohol followed by Hibiclens and draped usual sterile fashion. Procedure began with debridement of the wounds. There was a large open wound along the posterior calf and the anterior lateral calf. Skin subcutaneous tissue and fascia were sharply debrided. The majority of the tissue did appear to be healthy. There were areas of necrosis of soft tissue. An excisional debridement was performed with scalpel and rongeur. After thorough debridement wound was thoroughly irrigated with sterile saline. Next attention was turned to closure of the fasciotomy. Subcutaneous tissue was reapproximated with 3-0 PDS. Skin was closed with 3-0 nylon. A comminution of retention suture and vertical mattress suture were utilized. Skin was completely closed with minimal tension. Next attention was turned to wound VAC. A VAC sponge was cut to fit the posterior wound. Ioban was used to hold the VAC dressing in place. The Vac dressing was sealed appropriately. VAC dressing was set at 125 mmHg intermittent 3/. Dressings were applied. Patient was transferred to recovery room in stable condition. Dirk Grey MD Sep 05, 2016 11:12
[2016-09-05] MEDS ORDERED: *morphine SULFATE 8 MG/ML PERIprocedure ONLY ONE ×2 (11:44→11:55)
[2016-09-05] MEDS ORDERED: fentaNYL CITRATE 250 MCG/5 ML AMP ONE (11:49)
[2016-09-05] MEDS ORDERED: PROPOFOL 200 MG/20 ML AMP IV ONE ×2 (12:00)
[2016-09-05] MEDS ORDERED: ONDANSETRON HCL 4 MG/2 ML VIAL IV PUSH ONE ×2 (12:00)
[2016-09-05] MEDS ORDERED: LACTATED RINGER'S 1000 ML INJ 1,000 ML IV ONE (12:00)
[2016-09-05 12:30] VITALS: BP 123/70; PULSE 68; RESP 16; TEMP 96.2; O2SAT 97
[2016-09-05] MEDS: ENOXAPARIN SODIUM 40 MG/0.4 ML SYRINGE SQ SCH (13:00)
[2016-09-05] MEDS: KETOROLAC TROMETHAMINE 30 MG/ML (IVP) VIAL IVP SCH ×2 (13:46→21:14)
[2016-09-05 16:00] VITALS: BP 105/62; PULSE 76; RESP 16; TEMP 97.1; O2SAT 94
--- NOTE | 2016-09-05 17:31 | HHI.IDPN ---
Note Infectious Disease Note Patient feels okay. Post fasciotomy at the r. leg 09/01. Debridement again 09/03. Debridement and closure of r. fasciotomy wound 09/05. one area still open with wound vac in place. Afebrile. Wound culture has vibrio species. Patient was getting onto a jet-ski and she fell onto a pilon which had barnacle and shell on it and she scraped and cut her anterior tibia area on the right leg in a couple places. The patient presented to the emergency department two days later with complaint of swelling of her right lower extremity. She was noted to have tachycardia with her heart rate of 105 and blood pressure of 61/48 and a white count was elevated at 15.5, and lactic acid level 3.1, platelet count of 147. PAST MEDICAL HISTORY Hepatitis C, Crohn's disease, ADD. ANTIBIOTICS: 1. Ceftazidime. 2. Doxycycline. OBJECTIVE: Vital Signs Date Time Temp Pulse Resp B/P Pulse Ox O2 Delivery O2 Flow Rate FiO2 09/05/16 16:00 97.1 76 16 105/62 94 09/05/16 14:24 16 09/05/16 13:47 16 09/05/16 12:30 96.2 68 16 123/70 97 09/05/16 12:30 55 16 113/70 99 Nasal Cannula 2 09/05/16 12:15 54 16 109/65 100 Nasal Cannula 2 09/05/16 12:00 68 16 119/77 99 Nasal Cannula 2 09/05/16 11:45 97.4 70 16 117/72 99 Nasal Cannula 2 09/05/16 08:00 97.5 86 16 116/68 97 09/05/16 04:50 97.6 77 16 118/70 99 09/05/16 00:50 99.8 76 16 107/59 93 09/04/16 20:55 98.9 78 16 153/69 98 09/04/16 09/04/16 09/05/16 15:00 23:00 07:00 Intake Total 600 ml 1177 ml 373 ml Output Total 100 ml 75 ml Balance 600 ml 1077 ml 298 ml Intake Oral 600 ml 480 ml 0 ml IV Total 697 ml 373 ml Drainage Total 100 ml 75 ml # Voids 4 3 2 # Bowel Movements 0 0 0 Laboratory Tests Test 09/04/16 05:00 White Blood Count 4.5 TH/MM3 Red Blood Count 3.40 MIL/MM3 Hemoglobin 10.3 GM/DL Hematocrit 30.5 % Mean Corpuscular Volume 89.5 FL Mean Corpuscular Hemoglobin 30.1 PG Mean Corpuscular Hemoglobin 33.7 % Concent Red Cell Distribution Width 14.5 % Platelet Count 186 TH/MM3 Mean Platelet Volume 8.7 FL Neutrophils (%) (Auto) 45.1 % Lymphocytes (%) (Auto) 31.5 % Monocytes (%) (Auto) 18.6 % Eosinophils (%) (Auto) 4.2 % Basophils (%) (Auto) 0.6 % Neutrophils # (Auto) 2.0 TH/MM3 Lymphocytes # (Auto) 1.4 TH/MM3 Monocytes # (Auto) 0.8 TH/MM3 Eosinophils # (Auto) 0.2 TH/MM3 Basophils # (Auto) 0.0 TH/MM3 CBC Comment AUTO DIFF Differential Total Cells 100 Counted Neutrophils % (Manual) 44 % Band Neutrophils % 3 % Lymphocytes % 38 % Monocytes % 11 % Eosinophils % 3 % Basophils % 1 % Neutrophils # (Manual) 2.1 TH/MM3 Differential Comment FINAL DIFF MANUAL Platelet Estimate NORMAL Platelet Morphology Comment NORMAL Red Cell Morphology Comment NORMAL Laboratory Tests Test 09/04/16 09/05/16 05:00 05:19 Sodium Level 140 MEQ/L Potassium Level 3.8 MEQ/L Chloride Level 104 MEQ/L Carbon Dioxide Level 29.5 MEQ/L Anion Gap 7 MEQ/L Blood Urea Nitrogen 2 MG/DL Creatinine 0.44 MG/DL 0.49 MG/DL Estimat Glomerular Filtration 170 ML/MIN 150 ML/MIN Rate Random Glucose 99 MG/DL Calcium Level 8.0 MG/DL IMAGING: Chest X-Ray 08/30/16 1145 Signed Impressions: Service Date/Time: Tuesday, August 30, 2016 11:52 - CONCLUSION: Right jugular line as above. No evidence of pneumothorax. Buck Garza MD Lower Extremity MRI 08/30/16 0000 Signed Impressions: Service Date/Time: Tuesday, August 30, 2016 20:23 - CONCLUSION: Edema within the deep subcutaneous fat abutting the muscular compartments. Edema within the muscular compartments is not seen. Early compartment syndrome cannot be totally ruled out with MR. Evan Vargas MD PHYSICAL EXAMINATION GENERAL: No acute distress. Awake and alert and oriented. HEENT: No icterus. Oropharynx no visible lesions. No thrush. NECK: Supple without adenopathy. No swelling. LUNGS: Clear breath sounds. HEART: Regular S1-S2. No murmurs, rubs or gallops. ABDOMEN: Bowel sounds present, soft, nontender. No hepatosplenomegaly. EXTREMITIES: The right leg swelling has decreased. Less erythematous. 2 wound vac has scant drainage. There is a dry laceration which is superficial at the right great toe and two dry lacerations at the 2n and 3rd fingers left hand palmar aspect. NEUROLOGIC: No gross focal findings. IMPRESSION 1. Severe necrotizing cellulitis of the right leg due to vibrio in patient who had contact with shells in salt water environment and subsequently developed a lacerations. Septic shock on admission. Post fasciotomy R. leg. 2. Septic shock, treated. Appears stable. RECOMMENDATIONS 1. Continue Ceftazidime. 2. Continue Doxycycline. 3. Monitor clinical status. repeat debridement per ortho. Tyrone Reed MD Sep 05, 2016 17:31
[2016-09-05 20:35] VITALS: BP 124/67; PULSE 73; RESP 18; TEMP 98.5; O2SAT 96
[2016-09-06] VITALS (9 sets, daily range): BP systolic 107–131; BP diastolic 56–69; PULSE 51–98; RESP 16–18; TEMP 96.7–98.5; O2SAT 96–99
[2016-09-06] MEDS: diphenhydrAMINE HCL 25 MG CAP PO PRN (03:57)
[2016-09-06] MEDS: KETOROLAC TROMETHAMINE 30 MG/ML (IVP) VIAL IVP SCH ×2 (05:16→13:36)
[2016-09-06] MEDS: DOXYCYCLINE INJ 100 MG in SODIUM CHLORIDE 0.9% INJ 100 ML IV SCH ×2 (05:16→16:17)
[2016-09-06] MEDS: PCA - TOTAL MG DILAUDID DELIVERED PER SHIFT OTHER SCH ×3 (05:22→21:15)
--- NOTE | 2016-09-06 07:01 | PD.ORT.PN ---
Subjective Subjective Remarks s/p I&D with fasciotomy and vac application right leg with partial wound closure -doing well. pain improved. no changes Objective Vitals Vital Signs Date Time Temp Pulse Resp B/P Pulse Ox O2 Delivery O2 Flow Rate FiO2 09/06/16 04:37 97.5 59 18 108/66 99 09/06/16 00:25 97.6 80 18 114/69 96 09/05/16 20:35 98.5 73 18 124/67 96 09/05/16 16:00 97.1 76 16 105/62 94 09/05/16 14:24 16 09/05/16 13:47 16 09/05/16 12:30 96.2 68 16 123/70 97 09/05/16 12:30 55 16 113/70 99 Nasal Cannula 2 09/05/16 12:15 54 16 109/65 100 Nasal Cannula 2 09/05/16 12:00 68 16 119/77 99 Nasal Cannula 2 09/05/16 11:45 97.4 70 16 117/72 99 Nasal Cannula 2 09/05/16 08:00 97.5 86 16 116/68 97 I/O 09/05/16 09/05/16 09/05/16 09/06/16 09/06/16 09/06/16 07:00 15:00 23:00 07:00 15:00 23:00 Intake Total 373 ml 1362 ml 587 ml 645 ml Output Total 75 ml 25 ml 0 ml 0 ml Balance 298 ml 1337 ml 587 ml 645 ml Intake Oral 0 ml 480 ml 240 ml 240 ml IV Total 373 ml 582 ml 347 ml 405 ml Other 300 ml Drainage Total 75 ml 0 ml 0 ml Estimated Blood Loss 25 ml # Voids 2 4 2 4 # Bowel Movements 0 0 0 Result Diagram: 09/04/16 0500 09/05/16 0519 Objective Remarks RLE: +swelling and erythema of lower leg - improving. vac present with good seal. NVI. no evidence of necrosis Assessment & Plan Assessment and Plan 1) Right Leg vibrio infection s/p I&D and vac application - POD 1 -NWB -maintain vac at all time -infectious disease for IV Abx -plan for repeat I&D and vac change Irving Headley AM Sep 06, 2016 07:01
[2016-09-06] MEDS: LACTATED RINGER'S 1000 ML INJ 1,000 ML IV SCH ×2 (08:30→17:18)
[2016-09-06] MEDS: POLYETHYLENE GLYCOL 17 GM PKG PO SCH ×2 (09:00→21:14)
[2016-09-06] MEDS: DOCUSATE SODIUM 50 MG/SENNA 8.6 MG TAB PO SCH ×2 (09:00→21:14)
[2016-09-06] MEDS: BISACODYL 10 MG SUPP RECTAL SCH (09:00)
[2016-09-06] MEDS: BACITRACIN TOP OINT 15 GM TUBE TOPICAL SCH ×2 (09:00→21:15)
[2016-09-06] MEDS: cefTAZidime INJ 2,000 MG in SODIUM CHLORIDE 0.9% INJ 100 ML IV SCH ×3 (09:43→23:23)
[2016-09-06] MEDS: PANTOPRAZOLE SOD 40 MG DELAYED RELEASE TAB PO SCH (09:43)
[2016-09-06] MEDS: LACTULOSE SYRUP 20 GM/30 ML CUP PO SCH ×2 (09:43→21:14)
[2016-09-06] MEDS: HYDROmorphone HCL PCA 6 MG/30 ML IV SCH ×3 (09:55→22:33)
--- NOTE | 2016-09-06 10:19 | HHI.PR ---
Subjective Remarks in no acute distress. pain is better today. afebrile. no other complaints. d/w the RN. Objective Vitals Vital Signs Date Time Temp Pulse Resp B/P Pulse Ox O2 Delivery O2 Flow Rate FiO2 09/06/16 09:55 19 09/06/16 04:37 97.5 59 18 108/66 99 09/06/16 00:25 97.6 80 18 114/69 96 09/05/16 20:35 98.5 73 18 124/67 96 09/05/16 16:00 97.1 76 16 105/62 94 09/05/16 14:24 16 09/05/16 13:47 16 09/05/16 12:30 96.2 68 16 123/70 97 09/05/16 12:30 55 16 113/70 99 Nasal Cannula 2 09/05/16 12:15 54 16 109/65 100 Nasal Cannula 2 09/05/16 12:00 68 16 119/77 99 Nasal Cannula 2 09/05/16 11:45 97.4 70 16 117/72 99 Nasal Cannula 2 I/O 09/05/16 09/05/16 09/05/16 09/06/16 09/06/16 09/06/16 07:00 15:00 23:00 07:00 15:00 23:00 Intake Total 373 ml 1362 ml 587 ml 645 ml Output Total 75 ml 25 ml 0 ml 0 ml Balance 298 ml 1337 ml 587 ml 645 ml Intake Oral 0 ml 480 ml 240 ml 240 ml IV Total 373 ml 582 ml 347 ml 405 ml Other 300 ml Drainage Total 75 ml 0 ml 0 ml Estimated Blood Loss 25 ml # Voids 2 4 2 4 # Bowel Movements 0 0 0 Result Diagram: 09/04/16 0500 09/05/16 0519 Imaging Last Impressions Chest X-Ray 08/30/16 1145 Signed Impressions: Service Date/Time: Tuesday, August 30, 2016 11:52 - CONCLUSION: Right jugular line as above. No evidence of pneumothorax. Buck Garza MD Lower Extremity MRI 08/30/16 0000 Signed Impressions: Service Date/Time: Tuesday, August 30, 2016 20:23 - CONCLUSION: Edema within the deep subcutaneous fat abutting the muscular compartments. Edema within the muscular compartments is not seen. Early compartment syndrome cannot be totally ruled out with MR. Evan Vargas MD Objective Remarks GENERAL: This is a well-nourished, well-developed patient, in no apparent distress. CARDIOVASCULAR: Regular rate and regular rhythm without murmurs, gallops, or rubs. RESPIRATORY: Clear to auscultation. Breath sounds equal bilaterally. No wheezes , rales, or rhonchi. GASTROINTESTINAL: Abdomen soft, non-tender, nondistended. Normal, active bowel sounds MUSCULOSKELETAL: wound vac in place on right lower extremity NEURO: Alert & Oriented x4 to person, place, time, situation. Moves all ext x4 Procedures I/D of the right leg/ wound vac placement central line placement Medications and IVs Current Medications Sodium Chloride (NS 1000 ml Inj) 1,000 ml @ 1,000 mls/hr Q1H ONCE IV Last administered on 08/30/16 08:45; Start 08/30/16 at 08:11; Stop 08/30/16 at 09:10; Status DC Sodium Chloride (NS Flush) 2 ml UNSCH PRN IVF FLUSH AFTER USING IV ACCESS; Start 08/30/16 at 08:15 Ondansetron HCl (Zofran Inj) 4 mg ONCE ONCE IM Last administered on 08/30/16 08:45; Start 08/30/16 at 08:15; Stop 08/30/16 at 08:16; Status DC Morphine Sulfate 4 mg 4 mg ONCE ONCE IV PUSH ; Start 08/30/16 at 08:15; Stop 08/30/16 at 08:16; Status DC Vancomycin HCl 1050 mg/Sodium Chloride 260.5 ml @ 250 mls/hr ONCE ONCE IV ; Start 08/30/16 at 08:30; Stop 08/30/16 at 09:32; Status Cancel Piperacillin Sod/ Tazobactam Sod 50 ml @ 100 mls/hr ONCE ONCE IV Last administered on 08/30/16 08:45; Start 08/30/16 at 08:30; Stop 08/30/16 at 08:59; Status DC Sodium Chloride (NS 1000 ml Inj) 1,000 ml @ 999 mls/hr BOLUS ONCE IV Last administered on 08/30/16 08:45; Start 08/30/16 at 08:30; Stop 08/30/16 at 09:30; Status DC Tetanus/ Diphtheria Toxoids (Tetanus/ Diphtheria Tox Adult) 0.5 ml ONCE ONCE IM Last administered on 08/30/16 08:47; Start 08/30/16 at 08:45; Stop 08/30/16 at 08:46; Status DC Fentanyl Citrate (fentaNYL INJ) 50 mcg ONCE ONCE IV PUSH ; Start 08/30/16 at 08: 45; Stop 08/30/16 at 08:46; Status Cancel Fentanyl Citrate 50 mcg 50 mcg ONCE ONCE IV Last administered on 08/30/16 11: 54; Start 08/30/16 at 09:00; Stop 08/30/16 at 09:01; Status DC Vancomycin HCl 1000 mg/Sodium Chloride 250 ml @ 250 mls/hr ONCE ONCE IV Last administered on 08/30/16 09:31; Start 08/30/16 at 09:15; Stop 08/30/16 at 10:14; Status DC Levofloxacin/ Dextrose 150 ml @ 100 mls/hr ONCE ONCE IV Last administered on 08/30/16 11:46; Start 08/30/16 at 09:15; Stop 08/30/16 at 10:44; Status DC Sodium Chloride 1,000 ml @ 999 mls/hr BOLUS ONCE IV Last administered on 10:00; Start 08/30/16 at 10:00; Stop 08/30/16 at 11:00; Status DC Norepinephrine Bitartrate (Levophed-Dextrose Drip) 250 ml @ 0 mls/hr TITRATE IV ; Start 08/30/16 at 11:00; Stop 08/30/16 at 23:48; Status DC Magnesium Oxide 800 mg 800 mg UNSCH PRN PO For Magnesium 1.2 - 1.6 mg/dL; Start 08/30/16 at 11:15; Stop 09/05/16 at 15:15; Status DC Magnesium Sulfate 4 gm/Sodium Chloride 100 ml @ 50 mls/hr UNSCH PRN IV For Magnesium 0.9 - 1.1 mg/dL; Start 08/30/16 at 11:15; Stop 09/05/16 at 15:15; Status DC Magnesium Sulfate 2 gm/Sodium Chloride 100 ml @ 50 mls/hr UNSCH PRN IV For Magnesium 1.2 - 1.6 mg/dL; Start 08/30/16 at 11:15; Stop 09/05/16 at 15:15; Status DC Potassium Chloride 100 ml @ 50 mls/hr Q2H PRN IV For Potassium 2.8 - 3.2 mEq/L ; Start 08/30/16 at 11:15; Stop 09/05/16 at 15:15; Status DC Potassium Chloride 100 ml @ 50 mls/hr Q2H PRN IV For Potassium 3.3 - 3.5 mEq/L ; Start 08/30/16 at 11:15; Stop 09/05/16 at 15:15; Status DC Potassium Chloride 100 ml @ 50 mls/hr Q2H PRN IV For Potassium 2.8 - 3.2 mEq/L ; Start 08/30/16 at 11:15; Stop 09/05/16 at 15:15; Status DC Potassium Chloride (KCl 40 Meq Premix Inj) 100 ml @ 25 mls/hr UNSCH PRN IV For Potassium 3.3 - 3.5 mEq/L; Start 08/30/16 at 11:15; Stop 09/05/16 at 15:15; Status DC Potassium Phosphate (K-Phos) 2,000 mg Q4H PRN PO For Phosphorus < 2.5 mg/dL; Start 08/30/16 at 11:15; Stop 09/05/16 at 15:15; Status DC Potassium Phosphate 2000 mg 2,000 mg UNSCH PRN PO/TUBE SEE LABEL COMMENTS; Start 08/30/16 at 11:15; Stop 09/05/16 at 15:15; Status DC Potassium Phosphate 30 mmol/ Sodium Chloride 260 ml @ 42 mls/hr UNSCH PRN IV SEE LABEL COMMENTS; Start 08/30/16 at 11:15; Stop 09/05/16 at 15:15; Status DC Sodium Phosphate/ Sodium Chloride (Sodium Phosphate Inj/NS 250 ml Inj) 250 ml @ 42 mls/hr UNSCH PRN IV For Phosphorus < 2.5 mg/dL; Start 08/30/16 at 11:15; Stop 09/05/16 at 15:15; Status DC Nicotine (Habitrol 14 Mg Patch.24 Hr) 1 patch DAILY T-DERMAL Last administered on 08/31/16 09:08; Start 08/30/16 at 12:15; Stop 09/01/16 at 20:28; Status DC Miscellaneous Information 1 1 DAILY T-DERMAL Last administered on 08/31/16 09: 00; Start 08/31/16 at 09:00; Stop 09/02/16 at 07:35; Status DC Levofloxacin/ Dextrose 150 ml @ 100 mls/hr Q24H IV Last administered on 12:08; Start 08/31/16 at 12:00; Stop 09/01/16 at 16:38; Status DC Piperacillin Sod/ Tazobactam Sod 50 ml @ 100 mls/hr Q6H IV Last administered on 08/31/16 02:13; Start 08/30/16 at 15:00; Stop 08/31/16 at 06:30; Status DC Pharmacy Profile Note (Vancomycin Consult Pharmacy) 0 ml @ 0 mls/hr UNSCH OTHER ; Start 08/30/16 at 12:15; Stop 09/01/16 at 16:38; Status DC Pantoprazole Sodium (Protonix) 40 mg DAILY PO Last administered on 09/06/16 09 :43; Start 08/30/16 at 12:15 Enoxaparin Sodium 40 mg 40 mg Q24H SQ Last administered on 09/03/16 13:57; Start 08/30/16 at 13:00 Potassium Chloride/Sodium Chloride (NS + KCl 20 Meq Inj) 1,000 ml @ 100 mls/hr Q10H IV Last administered on 09/01/16 15:26; Start 08/30/16 at 12:15; Stop at 16:32; Status DC Albuterol/ Ipratropium (Duoneb Neb) 1 ampule Q6HR NEB PRN NEB SOB/WHEEZING; Start 08/30/16 at 12:15 Acetaminophen (Tylenol) 650 mg Q6H PRN PO PAIN SCALE 1 TO 2; Start 08/30/16 at 12:30; Stop 09/02/16 at 07:32; Status DC Ketorolac Tromethamine (Toradol Inj) 30 mg Q6H PRN IVP Pain 6-10;if unable to take PO Last administered on 08/30/16 13:23; Start 08/30/16 at 12:30; Stop at 06:05; Status DC Acetaminophen/ Hydrocodone Bitart (Orient 5-325 Mg) 1 tab Q4H PRN PO PAIN SCALE 3 TO 5; Start 08/30/16 at 12:30; Stop 09/02/16 at 07:18; Status DC Acetaminophen/ Hydrocodone Bitart (Orient 10-325 Mg) 1 tab Q4H PRN PO PAIN SCALE 6 TO 10 Last administered on 09/02/16 07:00; Start 08/30/16 at 12:30; Stop 09/02/16 at 07:18; Status DC Morphine Sulfate (Morphine Inj) 4 mg Q3H PRN IV PUSH BREAKTHROUGH PAIN Last administered on 09/01/16 15:27; Start 08/30/16 at 13:00; Stop 09/02/16 at 07:32; Status DC Naloxone HCl 0.4 mg 0.4 mg UNSCH PRN IV SEE LABEL COMMENTS; Start 08/30/16 at 12 :30; Stop 09/02/16 at 07:29; Status DC Vancomycin HCl/ Sodium Chloride (Vancomycin Inj/ NS 250 ml Inj) 250 ml @ 250 mls/hr Q12H IV Last administered on 08/30/16 22:24; Start 08/30/16 at 22:00; Stop 08/31/16 at 07:25; Status DC Miscellaneous Information SPECIFIC LAB TO BE DRAWN:VANCO TROUGH DATE... ONCE ONCE .XX ; Start 09/01/16 at 09:45; Stop 09/01/16 at 09:45; Status DC Miscellaneous Information Patient in critical care unit? Ass... Q361D .XX Last administered on 08/30/16 13:50; Start 08/30/16 at 13:45 Chlorhexidine Gluconate (Chlorhexidine 2% Cloth) 3 pack DAILY@04 TOPICAL Last administered on 09/03/16 04:00; Start 08/31/16 at 04:00; Stop 09/04/16 at 04:01; Status DC Chlorhexidine Gluconate (Chlorhexidine 2% Cloth) 3 pack UNSCH PRN TOPICAL HYGIENIC CARE; Start 08/30/16 at 13:45; Stop 09/04/16 at 13:33; Status DC Hydromorphone HCl (Dilaudid Pf Inj) 1 mg STAT ONCE IV PUSH Last administered on 08/30/16 16:13; Start 08/30/16 at 16:00; Stop 08/30/16 at 16:05; Status DC Bacitracin (Baciguent Oint) 1 applic Q12HR TOPICAL Last administered on 10:50; Start 08/30/16 at 21:00 Gadodiamide 15 ml 15 ml STK-MED ONCE IV Last administered on 08/30/16 23:13; Start 08/30/16 at 23:13; Stop 08/30/16 at 23:14; Status DC Lactated Ringer's 1,000 ml @ 999 mls/hr BOLUS ONCE IV Last administered on 00:29; Start 08/30/16 at 23:45; Stop 08/31/16 at 00:45; Status DC Vasopressin 40 units/Dextrose 100 ml @ 4.5 mls/hr [id number] IV Last administered on 08/31/16 17:29; Start 08/30/16 at 23:45; Stop 09/02/16 at 07:18; Status DC Norepinephrine Bitartrate (Levophed-Dextrose Drip) 250 ml @ 0 mls/hr TITRATE IV Last administered on 08/31/16 07:06; Start 08/31/16 at 00:00 Bisacodyl (Dulcolax Supp) 10 mg DAILY RECTAL ; Start 08/31/16 at 09:00 Polyethylene Glycol (Miralax) 17 gm BID PO Last administered on 09/04/16 09:30 ; Start 08/31/16 at 09:00 Lactulose (Lactulose Liq) 30 ml BID PO Last administered on 09/06/16 09:43; Start 08/31/16 at 09:00 Senna/Docusate Sodium 1 tab 1 tab BID PO Last administered on 09/05/16 21:14; Start 08/31/16 at 09:00 Piperacillin Sod/ Tazobactam Sod 100 ml @ 200 mls/hr Q6HR IV ; Start 08/31/16 at 06:30; Stop 08/31/16 at 07:07; Status DC Piperacillin Sod/ Tazobactam Sod 100 ml @ 200 mls/hr Q6H IV Last administered on 09/01/16 14:12; Start 08/31/16 at 08:00; Stop 09/01/16 at 16:38; Status DC Vancomycin HCl/ Sodium Chloride (Vancomycin Inj/ NS 250 ml Inj) 262.5 ml @ 250 mls/hr Q8H IV Last administered on 09/01/16 12:05; Start 08/31/16 at 09:00; Stop 09/01/16 at 13:32; Status DC Miscellaneous Information SPECIFIC LAB TO BE DRAWN:VANCOMYCIN TROUGH DATE TO... ONCE ONCE .XX ; Start 09/01/16 at 08:45; Stop 09/01/16 at 08:46; Status DC Vancomycin HCl/ Sodium Chloride (Vancomycin Inj/ NS 500 ml Inj) 514 ml @ 250 mls/hr Q8H IV ; Start 09/01/16 at 17:00; Stop 09/01/16 at 17:00; Status DC Miscellaneous Information SPECIFIC LAB TO BE DRAWN:VANCO TROUGH DATE... ONCE ONCE .XX ; Start 09/02/16 at 16:45; Stop 09/02/16 at 16:46; Status Cancel Doxycycline Hyclate 100 mg/ Sodium Chloride 100 ml @ 100 mls/hr Q12H IV Last administered on 09/06/16 05:16; Start 09/01/16 at 18:00 Ceftazidime 2000 mg/Sodium Chloride 100 ml @ 200 mls/hr Q8H IV Last administered on 09/06/16 09:43; Start 09/01/16 at 17:00 Dextrose/Sodium Chloride (D5W-NS 1000 ml Inj) 1,000 ml @ 75 mls/hr [id number] IV Last administered on 09/02/16 20:40; Start 09/01/16 at 17:15; Stop 09/05/16 at 12 :30; Status DC Gentamicin Sulfate (Gentamicin Inj) 240 mg STK-MED ONCE .ROUTE Last administered on 09/03/16 08:08; Start 09/01/16 at 18:21; Stop 09/01/16 at 18:22; Status DC Bupivacaine HCl/ Epinephrine Bitart (Sensorcaine-Epi 0.5% 50 ml Inj) 50 ml STK- MED ONCE .ROUTE ; Start 09/01/16 at 19:44; Stop 09/01/16 at 19:45; Status DC Famotidine (Pepcid Inj) 20 mg NOW ONCE IV Last administered on 09/01/16 20:30 ; Start 09/01/16 at 21:00; Stop 09/01/16 at 21:01; Status DC Citric Acid/ Sodium Citrate (Bicitra Liq) 30 ml ONCE ONCE PO Last administered on 09/01/16 20:30; Start 09/01/16 at 21:00; Stop 09/01/16 at 21:01; Status DC Midazolam HCl (Versed Inj) 2 mg ONCE ONCE IV Last administered on 09/01/16 20: 30; Start 09/01/16 at 21:00; Stop 09/01/16 at 21:01; Status DC Midazolam HCl (Versed Inj) 2 mg STK-MED ONCE .ROUTE ; Start 09/01/16 at 20:18; Stop 09/01/16 at 20:19; Status DC Famotidine (Pepcid Inj) 20 mg STK-MED ONCE .ROUTE ; Start 09/01/16 at 20:18; Stop 09/01/16 at 20:19; Status DC Fentanyl Citrate 250 mcg 250 mcg STK-MED ONCE .ROUTE ; Start 09/01/16 at 20:26; Stop 09/01/16 at 20:27; Status DC Ciprofloxacin/ Dextrose (Cipro 400 Mg Premix) 200 ml @ 200 mls/hr Q12H IV Last administered on 09/05/16 21:14; Start 09/01/16 at 21:00 Diphenhydramine HCl (Benadryl) 25 mg Q6H PRN PO ITCHING Last administered on 03:57; Start 09/01/16 at 20:45 Morphine Sulfate (Morphine Inj) 4 mg Q3H PRN IV PUSH break thru pain Last administered on 09/02/16 04:53; Start 09/01/16 at 20:45; Stop 09/02/16 at 07:33; Status DC Acetaminophen/ Hydrocodone Bitart (Orient 10-325 Mg) 1 tab Q3H PRN PO pain 3<10 ; Start 09/01/16 at 20:45; Stop 09/02/16 at 07:19; Status DC Doxycycline Hyclate (Vibramycin Inj) 100 mg STK-MED ONCE IV Last administered on 09/01/16 21:15; Start 09/01/16 at 21:15; Stop 09/01/16 at 21:53; Status DC Ceftazidime (Fortaz Inj) 2,000 mg STK-MED ONCE IM Last administered on 7/6/ 17at 21:15; Start 09/01/16 at 21:15; Stop 09/01/16 at 21:53; Status DC Ciprofloxacin (Cipro Liq) 10,000 mg STK-MED ONCE .XX Last administered on 21:15; Start 09/01/16 at 21:15; Stop 09/01/16 at 21:53; Status DC Morphine Sulfate (*morphine INJ PERIprocedure ONLY) 8 mg STK-MED ONCE .ROUTE Last administered on 09/01/16 22:06; Start 09/01/16 at 22:06; Stop 09/01/16 at 22: 07; Status DC Miscellaneous Information ALL NURSING DEPARTME... UNSCH PRN .XX SEE LABEL COMMENTS; Start 09/01/16 at 22:00; Stop 09/02/16 at 21:59; Status DC Morphine Sulfate (*morphine INJ PERIprocedure ONLY) 8 mg STK-MED ONCE .ROUTE Last administered on 09/01/16 22:17; Start 09/01/16 at 22:17; Stop 09/01/16 at 22: 18; Status DC Morphine Sulfate (*morphine INJ PERIprocedure ONLY) 8 mg STK-MED ONCE .ROUTE Last administered on 09/01/16 22:27; Start 09/01/16 at 22:27; Stop 09/01/16 at 22: 28; Status DC Hydromorphone HCl (*DILAUDID PF INJ PERIprocedural ONLY) 1 mg STK-MED ONCE .ROUTE Last administered on 09/01/16 22:59; Start 09/01/16 at 22:59; Stop at 23:00; Status DC Naloxone HCl (Narcan Inj) 0.4 mg UNSCH PRN IV RESPIRATORY RATE LESS THAN 10; Start 09/02/16 at 07:00 Hydromorphone HCl (Dilaudid S[employer]IOR [employer]FORMATION SYSTEMS ARCHITECT Inj) 6 mg UNSCH IV Last administered on 09:55; Start 09/02/16 at 07:30 SENIOR [employer]FORMATION SYSTEM[employer] ARCHITECT Dosage Infused (Pha) 1 Q8HR OTHER Last administered on 09/06/16 05:22; Start 09/02/16 at 07:30 Acetaminophen (Tylenol) 650 mg Q4H PRN PO fever; Start 09/02/16 at 08:00 Hydromorphone HCl 1 mg 1 mg Q3HR PRN IV PUSH breakthrough pain; Start 09/02/16 at 11:00 Lactated Ringer's (Lr 1000 ml Inj) 1,000 ml @ 75 mls/hr [id number] IV Last administered on 09/03/16 23:17; Start 09/03/16 at 00:00; Stop 09/05/16 at 12:29; Status DC Gentamicin Sulfate (Gentamicin Inj) 240 mg STK-MED ONCE .ROUTE Last administered on 09/03/16 08:10; Start 09/03/16 at 08:14; Stop 09/03/16 at 08:15; Status DC Morphine Sulfate (*morphine INJ PERIprocedure ONLY) 8 mg STK-MED ONCE .ROUTE Last administered on 09/03/16 08:52; Start 09/03/16 at 08:52; Stop 09/03/16 at 08: 53; Status DC Miscellaneous Information ALL NURSING DEPARTME... UNSCH PRN .XX SEE LABEL COMMENTS; Start 09/03/16 at 09:00; Stop 09/04/16 at 08:59; Status DC Midazolam HCl (Versed Inj) 2 mg STK-MED ONCE .ROUTE ; Start 09/03/16 at 08:56; Stop 09/03/16 at 08:57; Status DC Fentanyl Citrate (fentaNYL INJ) 250 mcg STK-MED ONCE .ROUTE ; Start 09/03/16 at 08:56; Stop 09/03/16 at 08:57; Status DC Morphine Sulfate 8 mg 8 mg STK-MED ONCE .ROUTE Last administered on 09/03/16 09 :05; Start 09/03/16 at 09:04; Stop 09/03/16 at 09:05; Status DC Magnesium Sulfate/ Dextrose (Magnesium Sulfate 1 Gm Premix) 100 ml @ 100 mls/ hr Q1H IV Last administered on 09/03/16 11:11; Start 09/03/16 at 10:00; Stop 09/03/16 at 11:59; Status DC Hydromorphone HCl (*DILAUDID PF INJ PERIprocedural ONLY) 1 mg STK-MED ONCE .ROUTE Last administered on 09/03/16 09:15; Start 09/03/16 at 09:08; Stop at 09:09; Status DC Gentamicin Sulfate 240 mg 240 mg STK-MED ONCE .ROUTE ; Start 09/05/16 at 09:42; Stop 09/05/16 at 09:43; Status DC Lactated Ringer's (Lr 1000 ml Inj) 1,000 ml @ 100 mls/hr Q10H IV ; Start at 12:30 Ketorolac Tromethamine (Toradol Inj) 30 mg Q8HR IVP Last administered on 05:16; Start 09/05/16 at 14:00; Stop 09/06/16 at 14:01 Gentamicin Sulfate (Gentamicin Inj) 240 mg STK-MED ONCE IRRIGATION Last administered on 09/05/16 10:48; Start 09/05/16 at 10:48; Stop 09/05/16 at 11:16 ; Status DC Morphine Sulfate (*morphine INJ PERIprocedure ONLY) 8 mg STK-MED ONCE .ROUTE Last administered on 09/05/16 11:44; Start 09/05/16 at 11:44; Stop 09/05/16 at 11:45; Status DC Fentanyl Citrate (fentaNYL INJ) 250 mcg STK-MED ONCE .ROUTE ; Start 09/05/16 at 11:49; Stop 09/05/16 at 11:50; Status DC Morphine Sulfate (*morphine INJ PERIprocedure ONLY) 8 mg STK-MED ONCE .ROUTE Last administered on 09/05/16 11:55; Start 09/05/16 at 11:55; Stop 09/05/16 at 11:56; Status DC Date of Insertion: Aug 30, 2016 Line: Central Venous Catheter Side: Right Location: Internal, Jugular A/P Assessment and Plan A/P s/p Septic Shock - vibrio Right lower extremity necrotizing fasciitis Lactic acid acidosis-resolved -s/p I/D of the right leg and wound vac placement -s/p Irrigation and debridement of right leg with excisional debridement, closure of right leg fasciotomy wound, application of wound VAC dressing on 09/05 -continue Ceftazidime,cipro and Doxycycline per ID -for repeated I/D and wound vac change on - per ortho -continue with pain control Infectious disease and ortho following Chronic tobacco use, currently using nicotine with vaporizer -Incentive spirometry every hour while awake --Tobacco sensation will be encouraged s/p Septic Shock-resolved Echocardiogram 09/12 - EF is 55-60%. No regional wall motion abnormality. Hepatitis C She does not know her genotype for hepatitis C but states her viral load was undetectable last check 6 months ago. f/u as outpatient Acute kidney injury-resolved Monitor renal function. PROPHYLAXIS DVT prevention with Sq Lovenox GI protection with Protonix CODE STATUS Full code Joel Carr MD Sep 06, 2016 10:19
[2016-09-06] MEDS: CIPROFLOXACIN 400 MG PREMIX 200 ML IV SCH ×2 (11:41→21:14)
[2016-09-06] MEDS: ENOXAPARIN SODIUM 40 MG/0.4 ML SYRINGE SQ SCH (13:14)
[2016-09-06] MEDS: MELATONIN 5 MG TAB PO PRN (23:21)
[2016-09-07] VITALS (9 sets, daily range): BP systolic 101–129; BP diastolic 61–76; PULSE 60–86; RESP 17–18; TEMP 96.3–98; O2SAT 96–100
[2016-09-07] MEDS: LACTATED RINGER'S 1000 ML INJ 1,000 ML IV SCH ×2 (02:51→12:36)
[2016-09-07] MEDS: PCA - TOTAL MG DILAUDID DELIVERED PER SHIFT OTHER SCH ×3 (06:00→22:00)
[2016-09-07] MEDS: DOXYCYCLINE INJ 100 MG in SODIUM CHLORIDE 0.9% INJ 100 ML IV SCH ×2 (06:35→17:39)
[2016-09-07] MEDS: BACITRACIN TOP OINT 15 GM TUBE TOPICAL SCH ×2 (09:00→21:00)
[2016-09-07] MEDS: DOCUSATE SODIUM 50 MG/SENNA 8.6 MG TAB PO SCH ×2 (09:00→21:00)
[2016-09-07] MEDS: BISACODYL 10 MG SUPP RECTAL SCH (09:00)
[2016-09-07] MEDS: POLYETHYLENE GLYCOL 17 GM PKG PO SCH ×2 (09:00→21:00)
[2016-09-07] MEDS: LACTULOSE SYRUP 20 GM/30 ML CUP PO SCH ×2 (09:11→21:00)
[2016-09-07] MEDS: PANTOPRAZOLE SOD 40 MG DELAYED RELEASE TAB PO SCH (09:11)
[2016-09-07] MEDS: cefTAZidime INJ 2,000 MG in SODIUM CHLORIDE 0.9% INJ 100 ML IV SCH ×2 (09:12→16:33)
--- NOTE | 2016-09-07 10:13 | PD.ORT.PN ---
Subjective Subjective Remarks Pain controlled no new complaints Objective Vitals Vital Signs Date Time Temp Pulse Resp B/P Pulse Ox O2 Delivery O2 Flow Rate FiO2 09/07/16 09:50 97 21 09/07/16 08:00 97.3 62 18 108/65 97 09/07/16 03:16 97.3 60 17 111/63 98 09/07/16 00:01 97.7 86 18 101/61 96 09/06/16 19:32 96.7 98 18 131/68 97 09/06/16 18:02 96 21 09/06/16 16:00 98.0 68 16 112/56 98 09/06/16 15:49 17 09/06/16 12:00 98.5 58 16 108/62 96 09/06/16 11:48 17 09/06/16 11:48 4 09/06/16 11:20 96 I/O 09/06/16 09/06/16 09/06/16 09/07/16 09/07/16 09/07/16 07:00 15:00 23:00 07:00 15:00 23:00 Intake Total 645 ml 992 ml 1219 ml 801 ml Output Total 0 ml 0 ml 0 ml 25 ml Balance 645 ml 992 ml 1219 ml 776 ml Intake Oral 240 ml 700 ml 720 ml 360 ml IV Total 405 ml 292 ml 499 ml 441 ml Drainage Total 0 ml 0 ml 0 ml 25 ml # Voids 4 4 4 1 # Bowel Movements 0 0 3 0 Result Diagram: 09/04/16 0500 09/07/16 0552 Objective Remarks RLE: +swelling and erythema of lower leg - improving. vac present with good seal. NVI. no evidence of necrosis Assessment & Plan Assessment and Plan 1) Right Leg vibrio infection s/p I&D and vac application - POD 2 -NWB -maintain vac at all time -infectious disease for IV Abx -plan for repeat I&D and vac change thurs AM Nothing by mouth after midnight for planned surgery tomorrow morning Seth Gemran Jr. Sep 07, 2016 10:13
--- NOTE | 2016-09-07 10:28 | HHI.PR ---
Subjective Remarks resting comfortably with no distress. pain to the right leg is controlled. afebrile. no other complaints. Objective Vitals Vital Signs Date Time Temp Pulse Resp B/P Pulse Ox O2 Delivery O2 Flow Rate FiO2 09/07/16 09:50 97 21 09/07/16 08:00 97.3 62 18 108/65 97 09/07/16 03:16 97.3 60 17 111/63 98 09/07/16 00:01 97.7 86 18 101/61 96 09/06/16 19:32 96.7 98 18 131/68 97 09/06/16 18:02 96 21 09/06/16 16:00 98.0 68 16 112/56 98 09/06/16 15:49 17 09/06/16 12:00 98.5 58 16 108/62 96 09/06/16 11:48 17 09/06/16 11:48 4 09/06/16 11:20 96 I/O 09/06/16 09/06/16 09/06/16 09/07/16 09/07/16 09/07/16 07:00 15:00 23:00 07:00 15:00 23:00 Intake Total 645 ml 992 ml 1219 ml 801 ml Output Total 0 ml 0 ml 0 ml 25 ml Balance 645 ml 992 ml 1219 ml 776 ml Intake Oral 240 ml 700 ml 720 ml 360 ml IV Total 405 ml 292 ml 499 ml 441 ml Drainage Total 0 ml 0 ml 0 ml 25 ml # Voids 4 4 4 1 # Bowel Movements 0 0 3 0 Result Diagram: 09/04/16 0500 09/07/16 0552 Imaging Last Impressions Chest X-Ray 08/30/16 1145 Signed Impressions: Service Date/Time: Tuesday, August 30, 2016 11:52 - CONCLUSION: Right jugular line as above. No evidence of pneumothorax. Buck Garza MD Lower Extremity MRI 08/30/16 0000 Signed Impressions: Service Date/Time: Tuesday, August 30, 2016 20:23 - CONCLUSION: Edema within the deep subcutaneous fat abutting the muscular compartments. Edema within the muscular compartments is not seen. Early compartment syndrome cannot be totally ruled out with . Evan Vargas MD Objective Remarks GENERAL: This is a well-nourished, well-developed patient, in no apparent distress. CARDIOVASCULAR: Regular rate and regular rhythm without murmurs, gallops, or rubs. RESPIRATORY: Clear to auscultation. Breath sounds equal bilaterally. No wheezes , rales, or rhonchi. GASTROINTESTINAL: Abdomen soft, non-tender, nondistended. Normal, active bowel sounds MUSCULOSKELETAL: wound vac in place on right lower extremity NEURO: Alert & Oriented x4 to person, place, time, situation. Moves all ext x4 Procedures I/D of the right leg/ wound vac placement central line placement Medications and IVs Current Medications Sodium Chloride (NS 1000 ml Inj) 1,000 ml @ 1,000 mls/hr Q1H ONCE IV Last administered on 08/30/16 08:45; Start 08/30/16 at 08:11; Stop 08/30/16 at 09:10; Status DC Sodium Chloride (NS Flush) 2 ml UNSCH PRN IVF FLUSH AFTER USING IV ACCESS; Start 08/30/16 at 08:15 Ondansetron HCl (Zofran Inj) 4 mg ONCE ONCE IM Last administered on 08/30/16 08:45; Start 08/30/16 at 08:15; Stop 08/30/16 at 08:16; Status DC Morphine Sulfate 4 mg 4 mg ONCE ONCE IV PUSH ; Start 08/30/16 at 08:15; Stop 08/30/16 at 08:16; Status DC Vancomycin HCl 1050 mg/Sodium Chloride 260.5 ml @ 250 mls/hr ONCE ONCE IV ; Start 08/30/16 at 08:30; Stop 08/30/16 at 09:32; Status Cancel Piperacillin Sod/ Tazobactam Sod 50 ml @ 100 mls/hr ONCE ONCE IV Last administered on 08/30/16 08:45; Start 08/30/16 at 08:30; Stop 08/30/16 at 08:59; Status DC Sodium Chloride (NS 1000 ml Inj) 1,000 ml @ 999 mls/hr BOLUS ONCE IV Last administered on 08/30/16 08:45; Start 08/30/16 at 08:30; Stop 08/30/16 at 09:30; Status DC Tetanus/ Diphtheria Toxoids (Tetanus/ Diphtheria Tox Adult) 0.5 ml ONCE ONCE IM Last administered on 08/30/16 08:47; Start 08/30/16 at 08:45; Stop 08/30/16 at 08:46; Status DC Fentanyl Citrate (fentaNYL INJ) 50 mcg ONCE ONCE IV PUSH ; Start 08/30/16 at 08: 45; Stop 08/30/16 at 08:46; Status Cancel Fentanyl Citrate 50 mcg 50 mcg ONCE ONCE IV Last administered on 08/30/16 11: 54; Start 08/30/16 at 09:00; Stop 08/30/16 at 09:01; Status DC Vancomycin HCl 1000 mg/Sodium Chloride 250 ml @ 250 mls/hr ONCE ONCE IV Last administered on 08/30/16 09:31; Start 08/30/16 at 09:15; Stop 08/30/16 at 10:14; Status DC Levofloxacin/ Dextrose 150 ml @ 100 mls/hr ONCE ONCE IV Last administered on 08/30/16 11:46; Start 08/30/16 at 09:15; Stop 08/30/16 at 10:44; Status DC Sodium Chloride 1,000 ml @ 999 mls/hr BOLUS ONCE IV Last administered on 10:00; Start 08/30/16 at 10:00; Stop 08/30/16 at 11:00; Status DC Norepinephrine Bitartrate (Levophed-Dextrose Drip) 250 ml @ 0 mls/hr TITRATE IV ; Start 08/30/16 at 11:00; Stop 08/30/16 at 23:48; Status DC Magnesium Oxide 800 mg 800 mg UNSCH PRN PO For Magnesium 1.2 - 1.6 mg/dL; Start 08/30/16 at 11:15; Stop 09/05/16 at 15:15; Status DC Magnesium Sulfate 4 gm/Sodium Chloride 100 ml @ 50 mls/hr UNSCH PRN IV For Magnesium 0.9 - 1.1 mg/dL; Start 08/30/16 at 11:15; Stop 09/05/16 at 15:15; Status DC Magnesium Sulfate 2 gm/Sodium Chloride 100 ml @ 50 mls/hr UNSCH PRN IV For Magnesium 1.2 - 1.6 mg/dL; Start 08/30/16 at 11:15; Stop 09/05/16 at 15:15; Status DC Potassium Chloride 100 ml @ 50 mls/hr Q2H PRN IV For Potassium 2.8 - 3.2 mEq/L ; Start 08/30/16 at 11:15; Stop 09/05/16 at 15:15; Status DC Potassium Chloride 100 ml @ 50 mls/hr Q2H PRN IV For Potassium 3.3 - 3.5 mEq/L ; Start 08/30/16 at 11:15; Stop 09/05/16 at 15:15; Status DC Potassium Chloride 100 ml @ 50 mls/hr Q2H PRN IV For Potassium 2.8 - 3.2 mEq/L ; Start 08/30/16 at 11:15; Stop 09/05/16 at 15:15; Status DC Potassium Chloride (KCl 40 Meq Premix Inj) 100 ml @ 25 mls/hr UNSCH PRN IV For Potassium 3.3 - 3.5 mEq/L; Start 08/30/16 at 11:15; Stop 09/05/16 at 15:15; Status DC Potassium Phosphate (K-Phos) 2,000 mg Q4H PRN PO For Phosphorus < 2.5 mg/dL; Start 08/30/16 at 11:15; Stop 09/05/16 at 15:15; Status DC Potassium Phosphate 2000 mg 2,000 mg UNSCH PRN PO/TUBE SEE LABEL COMMENTS; Start 08/30/16 at 11:15; Stop 09/05/16 at 15:15; Status DC Potassium Phosphate 30 mmol/ Sodium Chloride 260 ml @ 42 mls/hr UNSCH PRN IV SEE LABEL COMMENTS; Start 08/30/16 at 11:15; Stop 09/05/16 at 15:15; Status DC Sodium Phosphate/ Sodium Chloride (Sodium Phosphate Inj/NS 250 ml Inj) 250 ml @ 42 mls/hr UNSCH PRN IV For Phosphorus < 2.5 mg/dL; Start 08/30/16 at 11:15; Stop 09/05/16 at 15:15; Status DC Nicotine (Habitrol 14 Mg Patch.24 Hr) 1 patch DAILY T-DERMAL Last administered on 08/31/16 09:08; Start 08/30/16 at 12:15; Stop 09/01/16 at 20:28; Status DC Miscellaneous Information 1 1 DAILY T-DERMAL Last administered on 08/31/16 09: 00; Start 08/31/16 at 09:00; Stop 09/02/16 at 07:35; Status DC Levofloxacin/ Dextrose 150 ml @ 100 mls/hr Q24H IV Last administered on 12:08; Start 08/31/16 at 12:00; Stop 09/01/16 at 16:38; Status DC Piperacillin Sod/ Tazobactam Sod 50 ml @ 100 mls/hr Q6H IV Last administered on 08/31/16 02:13; Start 08/30/16 at 15:00; Stop 08/31/16 at 06:30; Status DC Pharmacy Profile Note (Vancomycin Consult Pharmacy) 0 ml @ 0 mls/hr UNSCH OTHER ; Start 08/30/16 at 12:15; Stop 09/01/16 at 16:38; Status DC Pantoprazole Sodium (Protonix) 40 mg DAILY PO Last administered on 09/07/16 09 :11; Start 08/30/16 at 12:15 Enoxaparin Sodium 40 mg 40 mg Q24H SQ Last administered on 09/06/16 13:14; Start 08/30/16 at 13:00 Potassium Chloride/Sodium Chloride (NS + KCl 20 Meq Inj) 1,000 ml @ 100 mls/hr Q10H IV Last administered on 09/01/16 15:26; Start 08/30/16 at 12:15; Stop at 16:32; Status DC Albuterol/ Ipratropium (Duoneb Neb) 1 ampule Q6HR NEB PRN NEB SOB/WHEEZING; Start 08/30/16 at 12:15 Acetaminophen (Tylenol) 650 mg Q6H PRN PO PAIN SCALE 1 TO 2; Start 08/30/16 at 12:30; Stop 09/02/16 at 07:32; Status DC Ketorolac Tromethamine (Toradol Inj) 30 mg Q6H PRN IVP Pain 6-10;if unable to take PO Last administered on 08/30/16 13:23; Start 08/30/16 at 12:30; Stop at 06:05; Status DC Acetaminophen/ Hydrocodone Bitart (Holly 5-325 Mg) 1 tab Q4H PRN PO PAIN SCALE 3 TO 5; Start 08/30/16 at 12:30; Stop 09/02/16 at 07:18; Status DC Acetaminophen/ Hydrocodone Bitart (Holly 10-325 Mg) 1 tab Q4H PRN PO PAIN SCALE 6 TO 10 Last administered on 09/02/16 07:00; Start 08/30/16 at 12:30; Stop 09/02/16 at 07:18; Status DC Morphine Sulfate (Morphine Inj) 4 mg Q3H PRN IV PUSH BREAKTHROUGH PAIN Last administered on 09/01/16 15:27; Start 08/30/16 at 13:00; Stop 09/02/16 at 07:32; Status DC Naloxone HCl 0.4 mg 0.4 mg UNSCH PRN IV SEE LABEL COMMENTS; Start 08/30/16 at 12 :30; Stop 09/02/16 at 07:29; Status DC Vancomycin HCl/ Sodium Chloride (Vancomycin Inj/ NS 250 ml Inj) 250 ml @ 250 mls/hr Q12H IV Last administered on 08/30/16 22:24; Start 08/30/16 at 22:00; Stop 08/31/16 at 07:25; Status DC Miscellaneous Information SPECIFIC LAB TO BE DRAWN:VANCO TROUGH DATE... ONCE ONCE .XX ; Start 09/01/16 at 09:45; Stop 09/01/16 at 09:45; Status DC Miscellaneous Information Patient in critical care unit? Ass... [id number] .XX Last administered on 08/30/16 13:50; Start 08/30/16 at 13:45 Chlorhexidine Gluconate (Chlorhexidine 2% Cloth) 3 pack DAILY@04 TOPICAL Last administered on 09/03/16 04:00; Start 08/31/16 at 04:00; Stop 09/04/16 at 04:01; Status DC Chlorhexidine Gluconate (Chlorhexidine 2% Cloth) 3 pack UNSCH PRN TOPICAL HYGIENIC CARE; Start 08/30/16 at 13:45; Stop 09/04/16 at 13:33; Status DC Hydromorphone HCl (Dilaudid Pf Inj) 1 mg STAT ONCE IV PUSH Last administered on 08/30/16 16:13; Start 08/30/16 at 16:00; Stop 08/30/16 at 16:05; Status DC Bacitracin (Baciguent Oint) 1 applic Q12HR TOPICAL Last administered on 10:50; Start 08/30/16 at 21:00 Gadodiamide 15 ml 15 ml STK-MED ONCE IV Last administered on 08/30/16 23:13; Start 08/30/16 at 23:13; Stop 08/30/16 at 23:14; Status DC Lactated Ringer's 1,000 ml @ 999 mls/hr BOLUS ONCE IV Last administered on 00:29; Start 08/30/16 at 23:45; Stop 08/31/16 at 00:45; Status DC Vasopressin 40 units/Dextrose 100 ml @ 4.5 mls/hr [id number] IV Last administered on 08/31/16 17:29; Start 08/30/16 at 23:45; Stop 09/02/16 at 07:18; Status DC Norepinephrine Bitartrate (Levophed-Dextrose Drip) 250 ml @ 0 mls/hr TITRATE IV Last administered on 08/31/16 07:06; Start 08/31/16 at 00:00 Bisacodyl (Dulcolax Supp) 10 mg DAILY RECTAL ; Start 08/31/16 at 09:00 Polyethylene Glycol (Miralax) 17 gm BID PO Last administered on 09/04/16 09:30 ; Start 08/31/16 at 09:00 Lactulose (Lactulose Liq) 30 ml BID PO Last administered on 09/07/16 09:11; Start 08/31/16 at 09:00 Senna/Docusate Sodium 1 tab 1 tab BID PO Last administered on 09/05/16 21:14; Start 08/31/16 at 09:00 Piperacillin Sod/ Tazobactam Sod 100 ml @ 200 mls/hr Q6HR IV ; Start 08/31/16 at 06:30; Stop 08/31/16 at 07:07; Status DC Piperacillin Sod/ Tazobactam Sod 100 ml @ 200 mls/hr Q6H IV Last administered on 09/01/16 14:12; Start 08/31/16 at 08:00; Stop 09/01/16 at 16:38; Status DC Vancomycin HCl/ Sodium Chloride (Vancomycin Inj/ NS 250 ml Inj) 262.5 ml @ 250 mls/hr Q8H IV Last administered on 09/01/16 12:05; Start 08/31/16 at 09:00; Stop 09/01/16 at 13:32; Status DC Miscellaneous Information SPECIFIC LAB TO BE DRAWN:VANCOMYCIN TROUGH DATE TO... ONCE ONCE .XX ; Start 09/01/16 at 08:45; Stop 09/01/16 at 08:46; Status DC Vancomycin HCl/ Sodium Chloride (Vancomycin Inj/ NS 500 ml Inj) 514 ml @ 250 mls/hr Q8H IV ; Start 09/01/16 at 17:00; Stop 09/01/16 at 17:00; Status DC Miscellaneous Information SPECIFIC LAB TO BE DRAWN:VANCO TROUGH DATE... ONCE ONCE .XX ; Start 09/02/16 at 16:45; Stop 09/02/16 at 16:46; Status Cancel Doxycycline Hyclate 100 mg/ Sodium Chloride 100 ml @ 100 mls/hr Q12H IV Last administered on 09/07/16 06:35; Start 09/01/16 at 18:00 Ceftazidime 2000 mg/Sodium Chloride 100 ml @ 200 mls/hr Q8H IV Last administered on 09/07/16 09:12; Start 09/01/16 at 17:00 Dextrose/Sodium Chloride (D5W-NS 1000 ml Inj) 1,000 ml @ 75 mls/hr [id number] IV Last administered on 09/02/16 20:40; Start 09/01/16 at 17:15; Stop 09/05/16 at 12 :30; Status DC Gentamicin Sulfate (Gentamicin Inj) 240 mg STK-MED ONCE .ROUTE Last administered on 09/03/16 08:08; Start 09/01/16 at 18:21; Stop 09/01/16 at 18:22; Status DC Bupivacaine HCl/ Epinephrine Bitart (Sensorcaine-Epi 0.5% 50 ml Inj) 50 ml STK- MED ONCE .ROUTE ; Start 09/01/16 at 19:44; Stop 09/01/16 at 19:45; Status DC Famotidine (Pepcid Inj) 20 mg NOW ONCE IV Last administered on 09/01/16 20:30 ; Start 09/01/16 at 21:00; Stop 09/01/16 at 21:01; Status DC Citric Acid/ Sodium Citrate (Bicitra Liq) 30 ml ONCE ONCE PO Last administered on 09/01/16 20:30; Start 09/01/16 at 21:00; Stop 09/01/16 at 21:01; Status DC Midazolam HCl (Versed Inj) 2 mg ONCE ONCE IV Last administered on 09/01/16 20: 30; Start 09/01/16 at 21:00; Stop 09/01/16 at 21:01; Status DC Midazolam HCl (Versed Inj) 2 mg STK-MED ONCE .ROUTE ; Start 09/01/16 at 20:18; Stop 09/01/16 at 20:19; Status DC Famotidine (Pepcid Inj) 20 mg STK-MED ONCE .ROUTE ; Start 09/01/16 at 20:18; Stop 09/01/16 at 20:19; Status DC Fentanyl Citrate 250 mcg 250 mcg STK-MED ONCE .ROUTE ; Start 09/01/16 at 20:26; Stop 09/01/16 at 20:27; Status DC Ciprofloxacin/ Dextrose (Cipro 400 Mg Premix) 200 ml @ 200 mls/hr Q12H IV Last administered on 09/06/16 21:14; Start 09/01/16 at 21:00 Diphenhydramine HCl (Benadryl) 25 mg Q6H PRN PO ITCHING Last administered on 03:57; Start 09/01/16 at 20:45 Morphine Sulfate (Morphine Inj) 4 mg Q3H PRN IV PUSH break thru pain Last administered on 09/02/16 04:53; Start 09/01/16 at 20:45; Stop 09/02/16 at 07:33; Status DC Acetaminophen/ Hydrocodone Bitart (Holly 10-325 Mg) 1 tab Q3H PRN PO pain 3<10 ; Start 09/01/16 at 20:45; Stop 09/02/16 at 07:19; Status DC Doxycycline Hyclate (Vibramycin Inj) 100 mg STK-MED ONCE IV Last administered on 09/01/16 21:15; Start 09/01/16 at 21:15; Stop 09/01/16 at 21:53; Status DC Ceftazidime (Fortaz Inj) 2,000 mg STK-MED ONCE IM Last administered on 21:15; Start 09/01/16 at 21:15; Stop 09/01/16 at 21:53; Status DC Ciprofloxacin (Cipro Liq) 10,000 mg STK-MED ONCE .XX Last administered on 21:15; Start 09/01/16 at 21:15; Stop 09/01/16 at 21:53; Status DC Morphine Sulfate (*morphine INJ PERIprocedure ONLY) 8 mg STK-MED ONCE .ROUTE Last administered on 09/01/16 22:06; Start 09/01/16 at 22:06; Stop 09/01/16 at 22: 07; Status DC Miscellaneous Information ALL NURSING DEPARTME... UNSCH PRN .XX SEE LABEL COMMENTS; Start 09/01/16 at 22:00; Stop 09/02/16 at 21:59; Status DC Morphine Sulfate (*morphine INJ PERIprocedure ONLY) 8 mg STK-MED ONCE .ROUTE Last administered on 09/01/16 22:17; Start 09/01/16 at 22:17; Stop 09/01/16 at 22: 18; Status DC Morphine Sulfate (*morphine INJ PERIprocedure ONLY) 8 mg STK-MED ONCE .ROUTE Last administered on 09/01/16 22:27; Start 09/01/16 at 22:27; Stop 09/01/16 at 22: 28; Status DC Hydromorphone HCl (*DILAUDID PF INJ PERIprocedural ONLY) 1 mg STK-MED ONCE .ROUTE Last administered on 09/01/16 22:59; Start 09/01/16 at 22:59; Stop at 23:00; Status DC Naloxone HCl (Narcan Inj) 0.4 mg UNSCH PRN IV RESPIRATORY RATE LESS THAN 10; Start 09/02/16 at 07:00 Hydromorphone HCl (Dilaudid [employer]ESSOR [employer]YSICAL EDUCATION Inj) 6 mg UNSCH IV Last administered on 22:33; Start 09/02/16 at 07:30 PROFESSOR [employer]YSICAL EDUCATION Dosage Infused (Pha) 1 Q8HR OTHER Last administered on 09/07/16 06:00; Start 09/02/16 at 07:30 Acetaminophen (Tylenol) 650 mg Q4H PRN PO fever; Start 09/02/16 at 08:00 Hydromorphone HCl 1 mg 1 mg Q3HR PRN IV PUSH breakthrough pain; Start 09/02/16 at 11:00 Lactated Ringer's (Lr 1000 ml Inj) 1,000 ml @ 75 mls/hr [id number] IV Last administered on 09/03/16 23:17; Start 09/03/16 at 00:00; Stop 09/05/16 at 12:29; Status DC Gentamicin Sulfate (Gentamicin Inj) 240 mg STK-MED ONCE .ROUTE Last administered on 09/03/16 08:10; Start 09/03/16 at 08:14; Stop 09/03/16 at 08:15; Status DC Morphine Sulfate (*morphine INJ PERIprocedure ONLY) 8 mg STK-MED ONCE .ROUTE Last administered on 09/03/16 08:52; Start 09/03/16 at 08:52; Stop 09/03/16 at 08: 53; Status DC Miscellaneous Information ALL NURSING DEPARTME... UNSCH PRN .XX SEE LABEL COMMENTS; Start 09/03/16 at 09:00; Stop 09/04/16 at 08:59; Status DC Midazolam HCl (Versed Inj) 2 mg STK-MED ONCE .ROUTE ; Start 09/03/16 at 08:56; Stop 09/03/16 at 08:57; Status DC Fentanyl Citrate (fentaNYL INJ) 250 mcg STK-MED ONCE .ROUTE ; Start 09/03/16 at 08:56; Stop 09/03/16 at 08:57; Status DC Morphine Sulfate 8 mg 8 mg STK-MED ONCE .ROUTE Last administered on 09/03/16 09 :05; Start 09/03/16 at 09:04; Stop 09/03/16 at 09:05; Status DC Magnesium Sulfate/ Dextrose (Magnesium Sulfate 1 Gm Premix) 100 ml @ 100 mls/ hr Q1H IV Last administered on 09/03/16 11:11; Start 09/03/16 at 10:00; Stop 09/03/16 at 11:59; Status DC Hydromorphone HCl (*DILAUDID PF INJ PERIprocedural ONLY) 1 mg STK-MED ONCE .ROUTE Last administered on 09/03/16 09:15; Start 09/03/16 at 09:08; Stop at 09:09; Status DC Gentamicin Sulfate 240 mg 240 mg STK-MED ONCE .ROUTE ; Start 09/05/16 at 09:42; Stop 09/05/16 at 09:43; Status DC Lactated Ringer's (Lr 1000 ml Inj) 1,000 ml @ 100 mls/hr Q10H IV Last administered on 09/06/16 17:18; Start 09/05/16 at 12:30 Ketorolac Tromethamine (Toradol Inj) 30 mg Q8HR IVP Last administered on 13:36; Start 09/05/16 at 14:00; Stop 09/06/16 at 14:01; Status DC Gentamicin Sulfate (Gentamicin Inj) 240 mg STK-MED ONCE IRRIGATION Last administered on 09/05/16 10:48; Start 09/05/16 at 10:48; Stop 09/05/16 at 11:16 ; Status DC Morphine Sulfate (*morphine INJ PERIprocedure ONLY) 8 mg STK-MED ONCE .ROUTE Last administered on 09/05/16 11:44; Start 09/05/16 at 11:44; Stop 09/05/16 at 11:45; Status DC Fentanyl Citrate (fentaNYL INJ) 250 mcg STK-MED ONCE .ROUTE ; Start 09/05/16 at 11:49; Stop 09/05/16 at 11:50; Status DC Morphine Sulfate (*morphine INJ PERIprocedure ONLY) 8 mg STK-MED ONCE .ROUTE Last administered on 09/05/16 11:55; Start 09/05/16 at 11:55; Stop 09/05/16 at 11:56; Status DC Melatonin (Melatonin) 5 mg HS PRN PO insomnia Last administered on 09/06/16 23 :21; Start 09/06/16 at 22:30 Date of Insertion: Aug 30, 2016 Line: Central Venous Catheter Side: Right Location: Internal, Jugular A/P Assessment and Plan A/P s/p Septic Shock - vibrio Right lower extremity necrotizing fasciitis Lactic acid acidosis-resolved -s/p I/D of the right leg and wound vac placement -s/p Irrigation and debridement of right leg with excisional debridement, closure of right leg fasciotomy wound, application of wound VAC dressing on 09/05 -continue Ceftazidime,cipro and Doxycycline per ID -for repeated I/D and wound vac change on - per ortho -continue with pain control Infectious disease and ortho following Chronic tobacco use, currently using nicotine with vaporizer -Incentive spirometry every hour while awake --Tobacco sensation will be encouraged s/p Septic Shock-resolved Echocardiogram 09/12 - EF is 55-60%. No regional wall motion abnormality. Hepatitis C She does not know her genotype for hepatitis C but states her viral load was undetectable last check 6 months ago. f/u as outpatient Acute kidney injury-resolved Monitor renal function. PROPHYLAXIS DVT prevention with Sq Lovenox GI protection with Protonix CODE STATUS Full code Joel Carr MD Sep 07, 2016 10:28
[2016-09-07] MEDS: CIPROFLOXACIN 400 MG PREMIX 200 ML IV SCH ×2 (11:02→22:28)
[2016-09-07] MEDS: ENOXAPARIN SODIUM 40 MG/0.4 ML SYRINGE SQ SCH (12:36)
[2016-09-07] MEDS: HYDROmorphone HCL PCA 6 MG/30 ML IV SCH ×2 (13:25→20:28)
[2016-09-08] MEDS: LACTATED RINGER'S 1000 ML INJ 1,000 ML IV SCH ×4 (00:30→18:11)
[2016-09-08] MEDS: cefTAZidime INJ 2,000 MG in SODIUM CHLORIDE 0.9% INJ 100 ML IV SCH ×3 (01:06→17:07)
[2016-09-08] MEDS ORDERED: SODIUM CHLORID 0.9% 500 ML IV PRN ×2 (03:45→09:00)
[2016-09-08] MEDS ORDERED: CHLORHEXIDINE GLUCONATE 2 % 1 PACK (2 CLOTHS) TOPICAL PRN ×2 (03:45→09:00)
[2016-09-08] MEDS ORDERED: POVIDONE IODINE 5% (ANTISEPSIS KIT) 4 APPLICATIONS EACH NARE PRN ×2 (03:45→09:00)
[2016-09-08] MEDS ORDERED: LACTATED RINGER'S 1000 ML IV PRN ×2 (03:45→09:00)
[2016-09-08] MEDS: DOXYCYCLINE INJ 100 MG in SODIUM CHLORIDE 0.9% INJ 100 ML IV SCH ×2 (05:42→18:20)
[2016-09-08] MEDS: PCA - TOTAL MG DILAUDID DELIVERED PER SHIFT OTHER SCH ×3 (05:45→21:39)
--- NOTE | 2016-09-08 06:51 | PD.ORT.PN ---
Subjective Subjective Remarks Pain controlled no new complaints Objective Vitals Vital Signs Date Time Temp Pulse Resp B/P Pulse Ox O2 Delivery O2 Flow Rate FiO2 09/08/16 05:45 18 09/07/16 23:05 97.0 79 18 129/70 99 09/07/16 22:00 18 09/07/16 20:58 16 09/07/16 20:52 98.0 60 18 116/76 98 09/07/16 16:00 97.5 60 18 109/70 100 09/07/16 13:25 18 09/07/16 12:47 18 09/07/16 12:00 97.5 60 18 109/70 100 09/07/16 11:00 96.3 67 18 116/64 100 09/07/16 09:50 97 21 09/07/16 08:00 97.3 62 18 108/65 97 I/O 09/07/16 09/07/16 09/07/16 09/08/16 09/08/16 09/08/16 07:00 15:00 23:00 07:00 15:00 23:00 Intake Total 801 ml 1692 ml 1084 ml Output Total 25 ml 2080 ml 0 ml Balance 776 ml -388 ml 1084 ml Intake Oral 360 ml 1260 ml 720 ml IV Total 441 ml 432 ml 364 ml Output Urine Total 2050 ml Drainage Total 25 ml 30 ml 0 ml # Voids 1 5 # Bowel Movements 0 0 0 Result Diagram: 09/04/16 0500 09/07/16 0552 Objective Remarks RLE: +swelling and erythema of lower leg - improving. vac present with good seal. NVI. no evidence of necrosis Assessment & Plan Assessment and Plan 1) Right Leg vibrio infection s/p I&D and vac application - POD 3 -NWB -maintain vac at all time -infectious disease for IV Abx -plan for repeat I&D and vac change thurs AM Nothing by mouth Sign consents Seth German Jr. Sep 08, 2016 06:51
[2016-09-08] MEDS ORDERED: HYDROmorphone HCL PF 2 MG/ML VIAL ONE (07:22)
[2016-09-08] MEDS ORDERED: GENTAMICIN SULFATE 80 MG/2 ML VIAL IRRIGATION ONE (07:52)
--- NOTE | 2016-09-08 08:20 | PD.OP ---
cc: Dirk Grey MD Operative Report Date of Surgery: Sep 08, 2016 Preoperative Diagnosis: Right leg open wounds from necrotizing infection Postoperative Diagnosis: Procedure: Irrigation and debridement of right leg, closure of 8 cm of wound, application wound VAC dressing Anesthesia: Gen. Surgeon: Dirk Grey Parts Technician(s): ROSALIE Bergman PA-C The surgical procedure was assisted by my physician entry level administrative assistant. My P.A. presence was necessary throughout this case for the manipulation and positioning of the surgical extremity. My P.A. was assisting me throughout the duration of this procedure. The skill set of a physician entry level administrative assistant was medically necessary to complete this procedure. During the surgical case the rn surgical was working at the back table and the physician entry level administrative assistant was directly assisting me. Operation and Findings: Smitha returns operating room today for right leg debridement. Informed consent was obtained and operative site was marked. She is on scheduled antibiotics. She was given IV sedation and general anesthesia. Timeout procedure was performed. Right leg was prepped with alcohol followed by Hibiclens and draped usual sterile fashion. Procedure began with debridement of the wounds. There was a large open wound along the posterior calf. Skin subcutaneous tissue and fascia were sharply debrided. The majority of the tissue did appear to be healthy. There were small areas of necrosis of soft tissue. An excisional debridement was performed with scalpel and rongeur. After thorough debridement wound was thoroughly irrigated with sterile saline. Next attention was turned to closure. Subcutaneous tissue was reapproximated with 3-0 PDS. Skin was closed with 3-0 nylon. A comminution of retention suture and vertical mattress suture were utilized. Skin was completely closed with minimal tension. 8 cm of the wound was closed. There was a small area approximately 6 cm x 4 cm that was not closable. Next attention was turned to wound VAC. A VAC sponge was cut to fit the posterior wound. Ioban was used to hold the VAC dressing in place. The Vac dressing was sealed appropriately. VAC dressing was set at 125 mmHg intermittent /. Dressings were applied. Patient was transferred to recovery room in stable condition. Dirk Grey MD Sep 08, 2016 08:20
[2016-09-08] MEDS ORDERED: *morphine SULFATE 8 MG/ML PERIprocedure ONLY ONE ×2 (08:44→08:52)
[2016-09-08] MEDS ORDERED: MIDAZOLAM HCL 2 MG/2 ML VIAL ONE (08:47)
[2016-09-08] MEDS: DOCUSATE SODIUM 50 MG/SENNA 8.6 MG TAB PO SCH ×2 (09:00→21:00)
[2016-09-08] MEDS ORDERED: METOPROLOL TARTRATE 25 MG TAB PO PRN (09:00)
[2016-09-08] MEDS: POLYETHYLENE GLYCOL 17 GM PKG PO SCH ×2 (09:00→21:00)
[2016-09-08] MEDS: BISACODYL 10 MG SUPP RECTAL SCH (09:00)
[2016-09-08] MEDS ORDERED: INSULIN HUMAN REGULAR 1,000 UNITS/10 ML VIAL SQ PRN (09:00)
[2016-09-08] MEDS: LACTULOSE SYRUP 20 GM/30 ML CUP PO SCH ×2 (09:00→21:00)
[2016-09-08] MEDS: BACITRACIN TOP OINT 15 GM TUBE TOPICAL SCH ×2 (09:00→21:00)
[2016-09-08 10:04] VITALS: BP 117/67; PULSE 67; RESP 18; TEMP 95.8; O2SAT 93
[2016-09-08] MEDS: PANTOPRAZOLE SOD 40 MG DELAYED RELEASE TAB PO SCH (10:09)
[2016-09-08] MEDS: CIPROFLOXACIN 400 MG PREMIX 200 ML IV SCH ×2 (10:10→21:35)
[2016-09-08 12:00] VITALS: BP 121/67; PULSE 77; RESP 18; TEMP 98; O2SAT 97
--- NOTE | 2016-09-08 12:28 | HHI.PR ---
Subjective Remarks fairly comfortable. pain is fairly controlled. no new complaints. d/w the RN. Objective Vitals Vital Signs Date Time Temp Pulse Resp B/P Pulse Ox O2 Delivery O2 Flow Rate FiO2 09/08/16 12:00 98.0 77 18 121/67 97 09/08/16 10:04 95.8 67 18 117/67 93 09/08/16 09:15 97.9 50 12 110/56 96 Room Air 09/08/16 09:00 58 16 107/55 98 Nasal Cannula 2 09/08/16 08:45 70 15 114/63 99 Nasal Cannula 2 09/08/16 08:38 97.5 67 15 113/65 99 Nasal Cannula 2 09/08/16 05:45 18 09/07/16 23:05 97.0 79 18 129/70 99 09/07/16 22:00 18 09/07/16 20:58 16 09/07/16 20:52 98.0 60 18 116/76 98 09/07/16 16:00 97.5 60 18 109/70 100 09/07/16 13:25 18 09/07/16 12:47 18 I/O 09/07/16 09/07/16 09/07/16 09/08/16 09/08/16 09/08/16 07:00 15:00 23:00 07:00 15:00 23:00 Intake Total 801 ml 1692 ml 1084 ml 866 ml 400 ml Output Total 25 ml 2080 ml 0 ml 50 ml 10 ml Balance 776 ml -388 ml 1084 ml 816 ml 390 ml Intake Oral 360 ml 1260 ml 720 ml 480 ml 0 ml IV Total 441 ml 432 ml 364 ml 386 ml 100 ml Other 300 ml Output Urine Total 2050 ml 0 ml Drainage Total 25 ml 30 ml 0 ml 50 ml Estimated Blood Loss 10 ml # Voids 1 5 3 0 # Bowel Movements 0 0 0 0 Result Diagram: 09/04/16 0500 09/07/16 0552 Imaging Last Impressions Chest X-Ray 08/30/16 1145 Signed Impressions: Service Date/Time: Tuesday, August 30, 2016 11:52 - CONCLUSION: Right jugular line as above. No evidence of pneumothorax. Buck Garza MD Lower Extremity MRI 08/30/16 0000 Signed Impressions: Service Date/Time: Tuesday, August 30, 2016 20:23 - CONCLUSION: Edema within the deep subcutaneous fat abutting the muscular compartments. Edema within the muscular compartments is not seen. Early compartment syndrome cannot be totally ruled out with . Evan Vargas MD Objective Remarks GENERAL: This is a well-nourished, well-developed patient, in no apparent distress. CARDIOVASCULAR: Regular rate and regular rhythm without murmurs, gallops, or rubs. RESPIRATORY: Clear to auscultation. Breath sounds equal bilaterally. No wheezes , rales, or rhonchi. GASTROINTESTINAL: Abdomen soft, non-tender, nondistended. Normal, active bowel sounds MUSCULOSKELETAL: wound vac in place on right lower extremity NEURO: Alert & Oriented x4 to person, place, time, situation. Moves all ext x4 Procedures I/D of the right leg/ wound vac placement central line placement Medications and IVs Current Medications Sodium Chloride (NS 1000 ml Inj) 1,000 ml @ 1,000 mls/hr Q1H ONCE IV Last administered on 08/30/16 08:45; Start 08/30/16 at 08:11; Stop 08/30/16 at 09:10; Status DC Sodium Chloride (NS Flush) 2 ml UNSCH PRN IVF FLUSH AFTER USING IV ACCESS; Start 08/30/16 at 08:15 Ondansetron HCl (Zofran Inj) 4 mg ONCE ONCE IM Last administered on 08/30/16 08:45; Start 08/30/16 at 08:15; Stop 08/30/16 at 08:16; Status DC Morphine Sulfate 4 mg 4 mg ONCE ONCE IV PUSH ; Start 08/30/16 at 08:15; Stop 08/30/16 at 08:16; Status DC Vancomycin HCl 1050 mg/Sodium Chloride 260.5 ml @ 250 mls/hr ONCE ONCE IV ; Start 08/30/16 at 08:30; Stop 08/30/16 at 09:32; Status Cancel Piperacillin Sod/ Tazobactam Sod 50 ml @ 100 mls/hr ONCE ONCE IV Last administered on 08/30/16 08:45; Start 08/30/16 at 08:30; Stop 08/30/16 at 08:59; Status DC Sodium Chloride (NS 1000 ml Inj) 1,000 ml @ 999 mls/hr BOLUS ONCE IV Last administered on 08/30/16 08:45; Start 08/30/16 at 08:30; Stop 08/30/16 at 09:30; Status DC Tetanus/ Diphtheria Toxoids (Tetanus/ Diphtheria Tox Adult) 0.5 ml ONCE ONCE IM Last administered on 08/30/16 08:47; Start 08/30/16 at 08:45; Stop 08/30/16 at 08:46; Status DC Fentanyl Citrate (fentaNYL INJ) 50 mcg ONCE ONCE IV PUSH ; Start 08/30/16 at 08: 45; Stop 08/30/16 at 08:46; Status Cancel Fentanyl Citrate 50 mcg 50 mcg ONCE ONCE IV Last administered on 08/30/16 11: 54; Start 08/30/16 at 09:00; Stop 08/30/16 at 09:01; Status DC Vancomycin HCl 1000 mg/Sodium Chloride 250 ml @ 250 mls/hr ONCE ONCE IV Last administered on 08/30/16 09:31; Start 08/30/16 at 09:15; Stop 08/30/16 at 10:14; Status DC Levofloxacin/ Dextrose 150 ml @ 100 mls/hr ONCE ONCE IV Last administered on 08/30/16 11:46; Start 08/30/16 at 09:15; Stop 08/30/16 at 10:44; Status DC Sodium Chloride 1,000 ml @ 999 mls/hr BOLUS ONCE IV Last administered on 10:00; Start 08/30/16 at 10:00; Stop 08/30/16 at 11:00; Status DC Norepinephrine Bitartrate (Levophed-Dextrose Drip) 250 ml @ 0 mls/hr TITRATE IV ; Start 08/30/16 at 11:00; Stop 08/30/16 at 23:48; Status DC Magnesium Oxide 800 mg 800 mg UNSCH PRN PO For Magnesium 1.2 - 1.6 mg/dL; Start 08/30/16 at 11:15; Stop 09/05/16 at 15:15; Status DC Magnesium Sulfate 4 gm/Sodium Chloride 100 ml @ 50 mls/hr UNSCH PRN IV For Magnesium 0.9 - 1.1 mg/dL; Start 08/30/16 at 11:15; Stop 09/05/16 at 15:15; Status DC Magnesium Sulfate 2 gm/Sodium Chloride 100 ml @ 50 mls/hr UNSCH PRN IV For Magnesium 1.2 - 1.6 mg/dL; Start 08/30/16 at 11:15; Stop 09/05/16 at 15:15; Status DC Potassium Chloride 100 ml @ 50 mls/hr Q2H PRN IV For Potassium 2.8 - 3.2 mEq/L ; Start 08/30/16 at 11:15; Stop 09/05/16 at 15:15; Status DC Potassium Chloride 100 ml @ 50 mls/hr Q2H PRN IV For Potassium 3.3 - 3.5 mEq/L ; Start 08/30/16 at 11:15; Stop 09/05/16 at 15:15; Status DC Potassium Chloride 100 ml @ 50 mls/hr Q2H PRN IV For Potassium 2.8 - 3.2 mEq/L ; Start 08/30/16 at 11:15; Stop 09/05/16 at 15:15; Status DC Potassium Chloride (KCl 40 Meq Premix Inj) 100 ml @ 25 mls/hr UNSCH PRN IV For Potassium 3.3 - 3.5 mEq/L; Start 08/30/16 at 11:15; Stop 09/05/16 at 15:15; Status DC Potassium Phosphate (K-Phos) 2,000 mg Q4H PRN PO For Phosphorus < 2.5 mg/dL; Start 08/30/16 at 11:15; Stop 09/05/16 at 15:15; Status DC Potassium Phosphate 2000 mg 2,000 mg UNSCH PRN PO/TUBE SEE LABEL COMMENTS; Start 08/30/16 at 11:15; Stop 09/05/16 at 15:15; Status DC Potassium Phosphate 30 mmol/ Sodium Chloride 260 ml @ 42 mls/hr UNSCH PRN IV SEE LABEL COMMENTS; Start 08/30/16 at 11:15; Stop 09/05/16 at 15:15; Status DC Sodium Phosphate/ Sodium Chloride (Sodium Phosphate Inj/NS 250 ml Inj) 250 ml @ 42 mls/hr UNSCH PRN IV For Phosphorus < 2.5 mg/dL; Start 08/30/16 at 11:15; Stop 09/05/16 at 15:15; Status DC Nicotine (Habitrol 14 Mg Patch.24 Hr) 1 patch DAILY T-DERMAL Last administered on 08/31/16t 09:08; Start 08/30/16 at 12:15; Stop 09/01/16 at 20:28; Status DC Miscellaneous Information 1 1 DAILY T-DERMAL Last administered on 08/31/16 09: 00; Start 08/31/16 at 09:00; Stop 09/02/16 at 07:35; Status DC Levofloxacin/ Dextrose 150 ml @ 100 mls/hr Q24H IV Last administered on 12:08; Start 08/31/16 at 12:00; Stop 09/01/16 at 16:38; Status DC Piperacillin Sod/ Tazobactam Sod 50 ml @ 100 mls/hr Q6H IV Last administered on 08/31/16 02:13; Start 08/30/16 at 15:00; Stop 08/31/16 at 06:30; Status DC Pharmacy Profile Note (Vancomycin Consult Pharmacy) 0 ml @ 0 mls/hr UNSCH OTHER ; Start 08/30/16 at 12:15; Stop 09/01/16 at 16:38; Status DC Pantoprazole Sodium (Protonix) 40 mg DAILY PO Last administered on 09/08/16 10 :09; Start 08/30/16 at 12:15 Enoxaparin Sodium 40 mg 40 mg Q24H SQ Last administered on 09/07/16 12:36; Start 08/30/16 at 13:00 Potassium Chloride/Sodium Chloride (NS + KCl 20 Meq Inj) 1,000 ml @ 100 mls/hr Q10H IV Last administered on 09/01/16 15:26; Start 08/30/16 at 12:15; Stop at 16:32; Status DC Albuterol/ Ipratropium (Duoneb Neb) 1 ampule Q6HR NEB PRN NEB SOB/WHEEZING; Start 08/30/16 at 12:15 Acetaminophen (Tylenol) 650 mg Q6H PRN PO PAIN SCALE 1 TO 2; Start 08/30/16 at 12:30; Stop 09/02/16 at 07:32; Status DC Ketorolac Tromethamine (Toradol Inj) 30 mg Q6H PRN IVP Pain 6-10;if unable to take PO Last administered on 08/30/16 13:23; Start 08/30/16 at 12:30; Stop at 06:05; Status DC Acetaminophen/ Hydrocodone Bitart ([place] 5-325 Mg) 1 tab Q4H PRN PO PAIN SCALE 3 TO 5; Start 08/30/16 at 12:30; Stop 09/02/16 at 07:18; Status DC Acetaminophen/ Hydrocodone Bitart ([place] 10-325 Mg) 1 tab Q4H PRN PO PAIN SCALE 6 TO 10 Last administered on 09/02/16 07:00; Start 08/30/16 at 12:30; Stop 09/02/16 at 07:18; Status DC Morphine Sulfate (Morphine Inj) 4 mg Q3H PRN IV PUSH BREAKTHROUGH PAIN Last administered on 09/01/16 15:27; Start 08/30/16 at 13:00; Stop 09/02/16 at 07:32; Status DC Naloxone HCl 0.4 mg 0.4 mg UNSCH PRN IV SEE LABEL COMMENTS; Start 08/30/16 at 12 :30; Stop 09/02/16 at 07:29; Status DC Vancomycin HCl/ Sodium Chloride (Vancomycin Inj/ NS 250 ml Inj) 250 ml @ 250 mls/hr Q12H IV Last administered on 08/30/16 22:24; Start 08/30/16 at 22:00; Stop 08/31/16 at 07:25; Status DC Miscellaneous Information SPECIFIC LAB TO BE DRAWN:VANCO TROUGH DATE... ONCE ONCE .XX ; Start 09/01/16 at 09:45; Stop 09/01/16 at 09:45; Status DC Miscellaneous Information Patient in critical care unit? Ass... [id number] .XX Last administered on 08/30/16 13:50; Start 08/30/16 at 13:45 Chlorhexidine Gluconate (Chlorhexidine 2% Cloth) 3 pack DAILY@04 TOPICAL Last administered on 09/03/16 04:00; Start 08/31/16 at 04:00; Stop 09/04/16 at 04:01; Status DC Chlorhexidine Gluconate (Chlorhexidine 2% Cloth) 3 pack UNSCH PRN TOPICAL HYGIENIC CARE; Start 08/30/16 at 13:45; Stop 09/04/16 at 13:33; Status DC Hydromorphone HCl (Dilaudid Pf Inj) 1 mg STAT ONCE IV PUSH Last administered on 08/30/16 16:13; Start 08/30/16 at 16:00; Stop 08/30/16 at 16:05; Status DC Bacitracin (Baciguent Oint) 1 applic Q12HR TOPICAL Last administered on 10:50; Start 08/30/16 at 21:00 Gadodiamide 15 ml 15 ml STK-MED ONCE IV Last administered on 08/30/16 23:13; Start 08/30/16 at 23:13; Stop 08/30/16 at 23:14; Status DC Lactated Ringer's 1,000 ml @ 999 mls/hr BOLUS ONCE IV Last administered on 00:29; Start 08/30/16 at 23:45; Stop 08/31/16 at 00:45; Status DC Vasopressin 40 units/Dextrose 100 ml @ 4.5 mls/hr [id number] IV Last administered on 08/31/16 17:29; Start 08/30/16 at 23:45; Stop 09/02/16 at 07:18; Status DC Norepinephrine Bitartrate (Levophed-Dextrose Drip) 250 ml @ 0 mls/hr TITRATE IV Last administered on 08/31/16 07:06; Start 08/31/16 at 00:00 Bisacodyl (Dulcolax Supp) 10 mg DAILY RECTAL ; Start 08/31/16 at 09:00 Polyethylene Glycol (Miralax) 17 gm BID PO Last administered on 09/04/16 09:30 ; Start 08/31/16 at 09:00 Lactulose (Lactulose Liq) 30 ml BID PO Last administered on 09/07/16 09:11; Start 08/31/16 at 09:00 Senna/Docusate Sodium 1 tab 1 tab BID PO Last administered on 09/05/16 21:14; Start 08/31/16 at 09:00 Piperacillin Sod/ Tazobactam Sod 100 ml @ 200 mls/hr Q6HR IV ; Start 08/31/16 at 06:30; Stop 08/31/16 at 07:07; Status DC Piperacillin Sod/ Tazobactam Sod 100 ml @ 200 mls/hr Q6H IV Last administered on 09/01/16 14:12; Start 08/31/16 at 08:00; Stop 09/01/16 at 16:38; Status DC Vancomycin HCl/ Sodium Chloride (Vancomycin Inj/ NS 250 ml Inj) 262.5 ml @ 250 mls/hr Q8H IV Last administered on 09/01/16 12:05; Start 08/31/16 at 09:00; Stop 09/01/16 at 13:32; Status DC Miscellaneous Information SPECIFIC LAB TO BE DRAWN:VANCOMYCIN TROUGH DATE TO... ONCE ONCE .XX ; Start 09/01/16 at 08:45; Stop 09/01/16 at 08:46; Status DC Vancomycin HCl/ Sodium Chloride (Vancomycin Inj/ NS 500 ml Inj) 514 ml @ 250 mls/hr Q8H IV ; Start 09/01/16 at 17:00; Stop 09/01/16 at 17:00; Status DC Miscellaneous Information SPECIFIC LAB TO BE DRAWN:VANCO TROUGH DATE... ONCE ONCE .XX ; Start 09/02/16 at 16:45; Stop 09/02/16 at 16:46; Status Cancel Doxycycline Hyclate 100 mg/ Sodium Chloride 100 ml @ 100 mls/hr Q12H IV Last administered on 09/08/16 05:42; Start 09/01/16 at 18:00 Ceftazidime 2000 mg/Sodium Chloride 100 ml @ 200 mls/hr Q8H IV Last administered on 09/08/16 10:10; Start 09/01/16 at 17:00 Dextrose/Sodium Chloride (D5W-NS 1000 ml Inj) 1,000 ml @ 75 mls/hr [id number] IV Last administered on 09/02/16 20:40; Start 09/01/16 at 17:15; Stop 09/05/16 at 12 :30; Status DC Gentamicin Sulfate (Gentamicin Inj) 240 mg STK-MED ONCE .ROUTE Last administered on 09/03/16 08:08; Start 09/01/16 at 18:21; Stop 09/01/16 at 18:22; Status DC Bupivacaine HCl/ Epinephrine Bitart (Sensorcaine-Epi 0.5% 50 ml Inj) 50 ml STK- MED ONCE .ROUTE ; Start 09/01/16 at 19:44; Stop 09/01/16 at 19:45; Status DC Famotidine (Pepcid Inj) 20 mg NOW ONCE IV Last administered on 09/01/16 20:30 ; Start 09/01/16 at 21:00; Stop 09/01/16 at 21:01; Status DC Citric Acid/ Sodium Citrate (Bicitra Liq) 30 ml ONCE ONCE PO Last administered on 09/01/16 20:30; Start 09/01/16 at 21:00; Stop 09/01/16 at 21:01; Status DC Midazolam HCl (Versed Inj) 2 mg ONCE ONCE IV Last administered on 09/01/16 20: 30; Start 09/01/16 at 21:00; Stop 09/01/16 at 21:01; Status DC Midazolam HCl (Versed Inj) 2 mg STK-MED ONCE .ROUTE ; Start 09/01/16 at 20:18; Stop 09/01/16 at 20:19; Status DC Famotidine (Pepcid Inj) 20 mg STK-MED ONCE .ROUTE ; Start 09/01/16 at 20:18; Stop 09/01/16 at 20:19; Status DC Fentanyl Citrate 250 mcg 250 mcg STK-MED ONCE .ROUTE ; Start 09/01/16 at 20:26; Stop 09/01/16 at 20:27; Status DC Ciprofloxacin/ Dextrose (Cipro 400 Mg Premix) 200 ml @ 200 mls/hr Q12H IV Last administered on 09/08/16 10:10; Start 09/01/16 at 21:00 Diphenhydramine HCl (Benadryl) 25 mg Q6H PRN PO ITCHING Last administered on 03:57; Start 09/01/16 at 20:45 Morphine Sulfate (Morphine Inj) 4 mg Q3H PRN IV PUSH break thru pain Last administered on 09/02/16 04:53; Start 09/01/16 at 20:45; Stop 09/02/16 at 07:33; Status DC Acetaminophen/ Hydrocodone Bitart ([place] 10-325 Mg) 1 tab Q3H PRN PO pain 3<10 ; Start 09/01/16 at 20:45; Stop 09/02/16 at 07:19; Status DC Doxycycline Hyclate (Vibramycin Inj) 100 mg STK-MED ONCE IV Last administered on 09/01/16 21:15; Start 09/01/16 at 21:15; Stop 09/01/16 at 21:53; Status DC Ceftazidime (Fortaz Inj) 2,000 mg STK-MED ONCE IM Last administered on 21:15; Start 09/01/16 at 21:15; Stop 09/01/16 at 21:53; Status DC Ciprofloxacin (Cipro Liq) 10,000 mg STK-MED ONCE .XX Last administered on 21:15; Start 09/01/16 at 21:15; Stop 09/01/16 at 21:53; Status DC Morphine Sulfate (*morphine INJ PERIprocedure ONLY) 8 mg STK-MED ONCE .ROUTE Last administered on 09/01/16 22:06; Start 09/01/16 at 22:06; Stop 09/01/16 at 22: 07; Status DC Miscellaneous Information ALL NURSING DEPARTME... UNSCH PRN .XX SEE LABEL COMMENTS; Start 09/01/16 at 22:00; Stop 09/02/16 at 21:59; Status DC Morphine Sulfate (*morphine INJ PERIprocedure ONLY) 8 mg STK-MED ONCE .ROUTE Last administered on 09/01/16 22:17; Start 09/01/16 at 22:17; Stop 09/01/16 at 22: 18; Status DC Morphine Sulfate (*morphine INJ PERIprocedure ONLY) 8 mg STK-MED ONCE .ROUTE Last administered on 09/01/16 22:27; Start 09/01/16 at 22:27; Stop 09/01/16 at 22: 28; Status DC Hydromorphone HCl (*DILAUDID PF INJ PERIprocedural ONLY) 1 mg STK-MED ONCE .ROUTE Last administered on 09/01/16 22:59; Start 09/01/16 at 22:59; Stop at 23:00; Status DC Naloxone HCl (Narcan Inj) 0.4 mg UNSCH PRN IV RESPIRATORY RATE LESS THAN 10; Start 09/02/16 at 07:00 Hydromorphone HCl (Dilaudid EXHIBITION CARVER Inj) 6 mg UNSCH IV Last administered on 20:28; Start 09/02/16 at 07:30 EXHIBITION CARVER Dosage Infused (Pha) 1 Q8HR OTHER Last administered on 09/08/16 05:45; Start 09/02/16 at 07:30 Acetaminophen (Tylenol) 650 mg Q4H PRN PO fever; Start 09/02/16 at 08:00 Hydromorphone HCl 1 mg 1 mg Q3HR PRN IV PUSH breakthrough pain; Start 09/02/16 at 11:00 Lactated Ringer's (Lr 1000 ml Inj) 1,000 ml @ 75 mls/hr [id number] IV Last administered on 09/03/16 23:17; Start 09/03/16 at 00:00; Stop 09/05/16 at 12:29; Status DC Gentamicin Sulfate (Gentamicin Inj) 240 mg STK-MED ONCE .ROUTE Last administered on 09/03/16 08:10; Start 09/03/16 at 08:14; Stop 09/03/16 at 08:15; Status DC Morphine Sulfate (*morphine INJ PERIprocedure ONLY) 8 mg STK-MED ONCE .ROUTE Last administered on 09/03/16 08:52; Start 09/03/16 at 08:52; Stop 09/03/16 at 08: 53; Status DC Miscellaneous Information ALL NURSING DEPARTME... UNSCH PRN .XX SEE LABEL COMMENTS; Start 09/03/16 at 09:00; Stop 09/04/16 at 08:59; Status DC Midazolam HCl (Versed Inj) 2 mg STK-MED ONCE .ROUTE ; Start 09/03/16 at 08:56; Stop 09/03/16 at 08:57; Status DC Fentanyl Citrate (fentaNYL INJ) 250 mcg STK-MED ONCE .ROUTE ; Start 09/03/16 at 08:56; Stop 09/03/16 at 08:57; Status DC Morphine Sulfate 8 mg 8 mg STK-MED ONCE .ROUTE Last administered on 09/03/16 09 :05; Start 09/03/16 at 09:04; Stop 09/03/16 at 09:05; Status DC Magnesium Sulfate/ Dextrose (Magnesium Sulfate 1 Gm Premix) 100 ml @ 100 mls/ hr Q1H IV Last administered on 09/03/16 11:11; Start 09/03/16 at 10:00; Stop 09/03/16 at 11:59; Status DC Hydromorphone HCl (*DILAUDID PF INJ PERIprocedural ONLY) 1 mg STK-MED ONCE .ROUTE Last administered on 09/03/16 09:15; Start 09/03/16 at 09:08; Stop at 09:09; Status DC Gentamicin Sulfate 240 mg 240 mg STK-MED ONCE .ROUTE ; Start 09/05/16 at 09:42; Stop 09/05/16 at 09:43; Status DC Lactated Ringer's (Lr 1000 ml Inj) 1,000 ml @ 100 mls/hr Q10H IV Last administered on 09/08/16 00:30; Start 09/05/16 at 12:30 Ketorolac Tromethamine (Toradol Inj) 30 mg Q8HR IVP Last administered on 13:36; Start 09/05/16 at 14:00; Stop 09/06/16 at 14:01; Status DC Gentamicin Sulfate (Gentamicin Inj) 240 mg STK-MED ONCE IRRIGATION Last administered on 09/05/16 10:48; Start 09/05/16 at 10:48; Stop 09/05/16 at 11:16 ; Status DC Morphine Sulfate (*morphine INJ PERIprocedure ONLY) 8 mg STK-MED ONCE .ROUTE Last administered on 09/05/16 11:44; Start 09/05/16 at 11:44; Stop 09/05/16 at 11:45; Status DC Fentanyl Citrate (fentaNYL INJ) 250 mcg STK-MED ONCE .ROUTE ; Start 09/05/16 at 11:49; Stop 09/05/16 at 11:50; Status DC Morphine Sulfate (*morphine INJ PERIprocedure ONLY) 8 mg STK-MED ONCE .ROUTE Last administered on 09/05/16 11:55; Start 09/05/16 at 11:55; Stop 09/05/16 at 11:56; Status DC Melatonin 5 mg 5 mg HS PRN PO insomnia Last administered on 09/06/16 23:21; Start 09/06/16 at 22:30 Lactated Ringer's 1,000 ml @ 30 mls/hr Q24H PRN IV SEE LABEL COMMENTS; Start at 03:45; Stop 09/11/16 at 03:44 Sodium Chloride (NS 500 ml Inj) 500 ml @ 30 mls/hr [id number] PRN IV SEE LABEL COMMENTS; Start 09/08/16 at 03:45; Stop 09/11/16 at 03:44 Povidone Iodine (Betadine 5% Antisepsis Kit) 1 applic INTERNET CONSULTANT PRN EACH NARE SEE LABEL COMMENTS; Start 09/08/16 at 03:45; Stop 09/11/16 at 03:44 Chlorhexidine Gluconate (Chlorhexidine 2% Cloth) 3 pack INTERNET CONSULTANT PRN TOPICAL SEE LABEL COMMENTS; Start 09/08/16 at 03:45; Stop 09/11/16 at 03:44 Hydromorphone HCl (Dilaudid Pf Inj) 2 mg STK-MED ONCE .ROUTE ; Start 09/08/16 at 07:22; Stop 09/08/16 at 07:23; Status DC Gentamicin Sulfate 240 mg 240 mg STK-MED ONCE IRRIGATION Last administered on 07:52; Start 09/08/16 at 07:52; Stop 09/08/16 at 08:18; Status DC Lactated Ringer's (Lr 1000 ml Inj) 1,000 ml @ 100 mls/hr Q10H IV ; Start at 08:11 Ketorolac Tromethamine (Toradol Inj) 30 mg Q8HR IV PUSH ; Start 09/08/16 at 14: 00; Stop 09/10/16 at 06:01 Morphine Sulfate (*morphine INJ PERIprocedure ONLY) 8 mg STK-MED ONCE .ROUTE Last administered on 09/08/16 08:44; Start 09/08/16 at 08:44; Stop 09/08/16 at 08:45; Status DC Midazolam HCl (Versed Inj) 2 mg STK-MED ONCE .ROUTE ; Start 09/08/16 at 08:47; Stop 09/08/16 at 08:48; Status DC Morphine Sulfate 8 mg 8 mg STK-MED ONCE .ROUTE Last administered on 09/08/16 08:52; Start 09/08/16 at 08:52; Stop 09/08/16 at 08:53; Status DC Lactated Ringer's 1,000 ml @ 30 mls/hr Q24H PRN IV SEE LABEL COMMENTS; Start at 09:00; Stop 09/11/16 at 08:59 Sodium Chloride (NS 500 ml Inj) 500 ml @ 30 mls/hr [id number] PRN IV SEE LABEL COMMENTS; Start 09/08/16 at 09:00; Stop 09/11/16 at 08:59 Metoprolol Tartrate (Lopressor) 25 mg INTERNET CONSULTANT PRN PO SEE LABEL COMMENTS; Start 09/08/16 at 09:00; Stop 09/11/16 at 08:59 Povidone Iodine (Betadine 5% Antisepsis Kit) 1 applic INTERNET CONSULTANT PRN EACH NARE SEE LABEL COMMENTS; Start 09/08/16 at 09:00; Stop 09/11/16 at 08:59 Chlorhexidine Gluconate (Chlorhexidine 2% Cloth) 3 pack INTERNET CONSULTANT PRN TOPICAL SEE LABEL COMMENTS; Start 09/08/16 at 09:00; Stop 09/11/16 at 08:59 Insulin Human Regular (NovoLIN R INJ) See Protocol Table ... INTERNET CONSULTANT PRN SQ SEE PROTOCOL TABLE; Start 09/08/16 at 09:00; Stop 09/11/16 at 08:59 Date of Insertion: Aug 30, 2016 Line: Central Venous Catheter Side: Right Location: Internal, Jugular A/P Assessment and Plan A/P s/p Septic Shock - vibrio Right lower extremity necrotizing fasciitis Lactic acid acidosis-resolved -s/p I/D of the right leg and wound vac placement -s/p Irrigation and debridement of right leg with excisional debridement, closure of right leg fasciotomy wound, application of wound VAC dressing on 09/05 -s/p Irrigation and debridement of right leg, closure of 8 cm of wound, application wound VAC dressing on 09/08/16 -continue Ceftazidime,cipro and Doxycycline per ID -continue with pain control; will probably dc the pain pump tomorrow Infectious disease and ortho following Chronic tobacco use, currently using nicotine with vaporizer -Incentive spirometry every hour while awake --Tobacco sensation will be encouraged s/p Septic Shock-resolved Echocardiogram 09/12 - EF is 55-60%. No regional wall motion abnormality. Hepatitis C She does not know her genotype for hepatitis C but states her viral load was undetectable last check 6 months ago. f/u as outpatient Acute kidney injury-resolved Monitor renal function. PROPHYLAXIS DVT prevention with Sq Lovenox GI protection with Protonix CODE STATUS Full code Joel Carr MD Sep 08, 2016 12:28
[2016-09-08] MEDS: KETOROLAC TROMETHAMINE 30 MG/ML (IVP) VIAL IV PUSH SCH ×2 (14:00→21:39)
[2016-09-08] MEDS: ENOXAPARIN SODIUM 40 MG/0.4 ML SYRINGE SQ SCH (14:11)
[2016-09-08] MEDS: HYDROmorphone HCL PCA 6 MG/30 ML IV SCH (14:37)
[2016-09-08 16:00] VITALS: BP 105/60; PULSE 57; RESP 18; TEMP 97.2; O2SAT 97
[2016-09-08 17:37] VITALS: O2SAT 97
--- NOTE | 2016-09-08 18:44 | HHI.IDPN ---
Note Infectious Disease Note Patient without complaints. Post fasciotomy at the r. leg 09/01. Debridement again 09/03. Debridement and closure of r. fasciotomy anterior r leg wound one of two site . Debridement and wound closure anterior r.leg upper wound 09/08. posterior r. leg area partially closed with wound vac in place. Afebrile. Patient was getting onto a jet-ski and she fell onto a pilon which had barnacle and shell on it and she scraped and cut her anterior tibia area on the right leg in a couple places. The patient presented to the emergency department two days later with complaint of swelling of her right lower extremity. She was noted to have tachycardia with her heart rate of 105 and blood pressure of 61/48 and a white count was elevated at 15.5, and lactic acid level 3.1, platelet count of 147. PAST MEDICAL HISTORY Hepatitis C, Crohn's disease, ADD. ANTIBIOTICS: 1. Ceftazidime. 2. Doxycycline. OBJECTIVE: Vital Signs Date Time Temp Pulse Resp B/P Pulse Ox O2 Delivery O2 Flow Rate FiO2 09/08/16 17:37 97 21 09/08/16 16:00 97.2 57 18 105/60 97 09/08/16 12:00 98.0 77 18 121/67 97 09/08/16 10:04 95.8 67 18 117/67 93 09/08/16 10:00 Room Air 09/08/16 09:15 97.9 50 12 110/56 96 Room Air 09/08/16 09:00 58 16 107/55 98 Nasal Cannula 2 09/08/16 08:45 70 15 114/63 99 Nasal Cannula 2 09/08/16 08:38 97.5 67 15 113/65 99 Nasal Cannula 2 09/08/16 05:45 18 09/07/16 23:05 97.0 79 18 129/70 99 09/07/16 22:00 18 09/07/16 20:58 16 09/07/16 20:52 98.0 60 18 116/76 98 Laboratory Tests Test 09/07/16 05:52 Creatinine 0.49 MG/DL Estimat Glomerular Filtration 150 ML/MIN Rate IMAGING: Chest X-Ray 08/30/16 1145 Signed Impressions: Service Date/Time: Tuesday, August 30, 2016 11:52 - CONCLUSION: Right jugular line as above. No evidence of pneumothorax. Buck aGrza MD Lower Extremity MRI 08/30/16 0000 Signed Impressions: Service Date/Time: Tuesday, August 30, 2016 20:23 - CONCLUSION: Edema within the deep subcutaneous fat abutting the muscular compartments. Edema within the muscular compartments is not seen. Early compartment syndrome cannot be totally ruled out with MR. Evan Vargas MD PHYSICAL EXAMINATION GENERAL: No acute distress. Awake and alert and oriented. HEENT: No icterus. Oropharynx no visible lesions. No thrush. NECK: Supple without adenopathy. LUNGS: Clear breath sounds. HEART: Regular S1-S2. No murmurs, rubs or gallops. EXTREMITIES: The right leg swelling has decreased. Less erythematous. Wound vac at posterior has scant drainage. There is a dry laceration which is superficial at the right great toe and two dry lacerations at the 2n and 3rd fingers left hand palmar aspect. NEUROLOGIC: No gross focal findings. IMPRESSION 1. Severe necrotizing cellulitis of the right leg due to vibrio in patient who had contact with shells in salt water environment and subsequently developed a lacerations. Septic shock on admission. Post fasciotomy R. leg. Post debridement. 2. Septic shock, treated. Appears stable. RECOMMENDATIONS 1. Continue Ceftazidime. 2. Continue Doxycycline. 3. Monitor clinical status. repeat debridement and skin closure per ortho. IV Antibiotics until final closure planned for early next week. Tyrone Reed MD Sep 08, 2016 18:44
[2016-09-08 20:05] VITALS: BP 107/55; PULSE 70; RESP 17; TEMP 98.4; O2SAT 96
[2016-09-09] VITALS (7 sets, daily range): BP systolic 100–116; BP diastolic 57–72; PULSE 56–88; RESP 17–18; TEMP 96.1–98.7; O2SAT 96–100
[2016-09-09] MEDS: HYDROmorphone HCL PCA 6 MG/30 ML IV SCH
[2016-09-09] MEDS: cefTAZidime INJ 2,000 MG in SODIUM CHLORIDE 0.9% INJ 100 ML IV SCH ×3 (01:24→17:34)
[2016-09-09] MEDS: LACTATED RINGER'S 1000 ML INJ 1,000 ML IV SCH ×7 (01:25→22:25)
[2016-09-09] MEDS: KETOROLAC TROMETHAMINE 30 MG/ML (IVP) VIAL IV PUSH SCH ×3 (06:00→20:08)
[2016-09-09] MEDS: PCA - TOTAL MG DILAUDID DELIVERED PER SHIFT OTHER SCH ×4 (06:00→23:22)
--- NOTE | 2016-09-09 06:34 | PD.ORT.PN ---
Subjective Subjective Remarks Pain controlled no new complaints Objective Vitals Vital Signs Date Time Temp Pulse Resp B/P Pulse Ox O2 Delivery O2 Flow Rate FiO2 09/09/16 04:05 97.2 72 17 100/66 99 09/09/16 00:05 97.9 70 17 110/72 100 09/09/16 00:00 18 09/08/16 21:39 18 09/08/16 20:05 98.4 70 17 107/55 96 09/08/16 17:37 97 21 09/08/16 16:00 97.2 57 18 105/60 97 09/08/16 12:00 98.0 77 18 121/67 97 09/08/16 10:04 95.8 67 18 117/67 93 09/08/16 10:00 Room Air 09/08/16 09:15 97.9 50 12 110/56 96 Room Air 09/08/16 09:00 58 16 107/55 98 Nasal Cannula 2 09/08/16 08:45 70 15 114/63 99 Nasal Cannula 2 09/08/16 08:38 97.5 67 15 113/65 99 Nasal Cannula 2 I/O 09/08/16 09/08/16 09/08/16 09/09/16 09/09/16 09/09/16 07:00 15:00 23:00 07:00 15:00 23:00 Intake Total 866 ml 1600 ml 555 ml Output Total 50 ml 10 ml 0 ml Balance 816 ml 1590 ml 555 ml Intake Oral 480 ml 1200 ml 240 ml IV Total 386 ml 100 ml 315 ml Other 300 ml Output Urine Total 0 ml Drainage Total 50 ml 0 ml Estimated Blood Loss 10 ml # Voids 3 5 2 # Bowel Movements 0 0 1 Result Diagram: 09/07/16 0552 Objective Remarks RLE: +swelling and erythema of lower leg - improving. vac present with good seal. NVI. 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 Sep 09, 2016 06:34
[2016-09-09] MEDS: DOXYCYCLINE INJ 100 MG in SODIUM CHLORIDE 0.9% INJ 100 ML IV SCH ×2 (07:06→17:34)
[2016-09-09] MEDS: POLYETHYLENE GLYCOL 17 GM PKG PO SCH ×2 (09:00→20:08)
[2016-09-09] MEDS: LACTULOSE SYRUP 20 GM/30 ML CUP PO SCH ×2 (09:00→20:08)
[2016-09-09] MEDS: BACITRACIN TOP OINT 15 GM TUBE TOPICAL SCH ×2 (09:00→20:08)
[2016-09-09] MEDS: BISACODYL 10 MG SUPP RECTAL SCH (09:00)
[2016-09-09] MEDS: DOCUSATE SODIUM 50 MG/SENNA 8.6 MG TAB PO SCH ×2 (09:31→20:08)
[2016-09-09] MEDS: PANTOPRAZOLE SOD 40 MG DELAYED RELEASE TAB PO SCH (09:32)
[2016-09-09] MEDS: ACETAMINOPHEN/HYDROcodone 325 MG/7.5 MG TAB PO PRN ×2 (09:32→13:26)
[2016-09-09] MEDS: CIPROFLOXACIN 400 MG PREMIX 200 ML IV SCH ×2 (09:35→20:08)
--- NOTE | 2016-09-09 11:24 | HHI.PR ---
Subjective Remarks resting comfortably with no distress. has some pain to the right leg. says that [place] helps with the pain to some extent. Objective Vitals Vital Signs Date Time Temp Pulse Resp B/P Pulse Ox O2 Delivery O2 Flow Rate FiO2 09/09/16 08:00 96.1 70 18 104/57 96 09/09/16 07:45 96 21 09/09/16 06:00 18 09/09/16 04:05 97.2 72 17 100/66 99 09/09/16 00:05 97.9 70 17 110/72 100 09/09/16 00:00 18 09/08/16 21:39 18 09/08/16 20:05 98.4 70 17 107/55 96 09/08/16 17:37 97 21 09/08/16 16:00 97.2 57 18 105/60 97 09/08/16 12:00 98.0 77 18 121/67 97 I/O 09/08/16 09/08/16 09/08/16 09/09/16 09/09/16 09/09/16 07:00 15:00 23:00 07:00 15:00 23:00 Intake Total 866 ml 1600 ml 555 ml 688 ml Output Total 50 ml 10 ml 0 ml 0 ml Balance 816 ml 1590 ml 555 ml 688 ml Intake Oral 480 ml 1200 ml 240 ml 240 ml IV Total 386 ml 100 ml 315 ml 448 ml Other 300 ml Output Urine Total 0 ml Drainage Total 50 ml 0 ml 0 ml Estimated Blood Loss 10 ml # Voids 3 5 2 1 # Bowel Movements 0 0 1 0 Result Diagram: 09/09/16 0630 Imaging Last Impressions Chest X-Ray 08/30/16 1145 Signed Impressions: Service Date/Time: Tuesday, August 30, 2016 11:52 - CONCLUSION: Right jugular line as above. No evidence of pneumothorax. Buck Garza MD Lower Extremity MRI 08/30/16 0000 Signed Impressions: Service Date/Time: Tuesday, August 30, 2016 20:23 - CONCLUSION: Edema within the deep subcutaneous fat abutting the muscular compartments. Edema within the muscular compartments is not seen. Early compartment syndrome cannot be totally ruled out with . Evan Vargas MD Objective Remarks GENERAL: This is a well-nourished, well-developed patient, in no apparent distress. CARDIOVASCULAR: Regular rate and regular rhythm without murmurs, gallops, or rubs. RESPIRATORY: Clear to auscultation. Breath sounds equal bilaterally. No wheezes , rales, or rhonchi. GASTROINTESTINAL: Abdomen soft, non-tender, nondistended. Normal, active bowel sounds MUSCULOSKELETAL: wound vac in place on right lower extremity NEURO: Alert & Oriented x4 to person, place, time, situation. Moves all ext x4 Procedures I/D of the right leg/ wound vac placement central line placement Medications and IVs Current Medications Sodium Chloride (NS 1000 ml Inj) 1,000 ml @ 1,000 mls/hr Q1H ONCE IV Last administered on 08/30/16 08:45; Start 08/30/16 at 08:11; Stop 08/30/16 at 09:10; Status DC Sodium Chloride (NS Flush) 2 ml UNSCH PRN IVF FLUSH AFTER USING IV ACCESS; Start 08/30/16 at 08:15 Ondansetron HCl (Zofran Inj) 4 mg ONCE ONCE IM Last administered on 08/30/16 08:45; Start 08/30/16 at 08:15; Stop 08/30/16 at 08:16; Status DC Morphine Sulfate 4 mg 4 mg ONCE ONCE IV PUSH ; Start 08/30/16 at 08:15; Stop 08/30/16 at 08:16; Status DC Vancomycin HCl 1050 mg/Sodium Chloride 260.5 ml @ 250 mls/hr ONCE ONCE IV ; Start 08/30/16 at 08:30; Stop 08/30/16 at 09:32; Status Cancel Piperacillin Sod/ Tazobactam Sod 50 ml @ 100 mls/hr ONCE ONCE IV Last administered on 08/30/16 08:45; Start 08/30/16 at 08:30; Stop 08/30/16 at 08:59; Status DC Sodium Chloride (NS 1000 ml Inj) 1,000 ml @ 999 mls/hr BOLUS ONCE IV Last administered on 08/30/16 08:45; Start 08/30/16 at 08:30; Stop 08/30/16 at 09:30; Status DC Tetanus/ Diphtheria Toxoids (Tetanus/ Diphtheria Tox Adult) 0.5 ml ONCE ONCE IM Last administered on 08/30/16 08:47; Start 08/30/16 at 08:45; Stop 08/30/16 at 08:46; Status DC Fentanyl Citrate (fentaNYL INJ) 50 mcg ONCE ONCE IV PUSH ; Start 08/30/16 at 08: 45; Stop 08/30/16 at 08:46; Status Cancel Fentanyl Citrate 50 mcg 50 mcg ONCE ONCE IV Last administered on 08/30/16 11: 54; Start 08/30/16 at 09:00; Stop 08/30/16 at 09:01; Status DC Vancomycin HCl 1000 mg/Sodium Chloride 250 ml @ 250 mls/hr ONCE ONCE IV Last administered on 08/30/16 09:31; Start 08/30/16 at 09:15; Stop 08/30/16 at 10:14; Status DC Levofloxacin/ Dextrose 150 ml @ 100 mls/hr ONCE ONCE IV Last administered on 08/30/16 11:46; Start 08/30/16 at 09:15; Stop 08/30/16 at 10:44; Status DC Sodium Chloride 1,000 ml @ 999 mls/hr BOLUS ONCE IV Last administered on 10:00; Start 08/30/16 at 10:00; Stop 08/30/16 at 11:00; Status DC Norepinephrine Bitartrate (Levophed-Dextrose Drip) 250 ml @ 0 mls/hr TITRATE IV ; Start 08/30/16 at 11:00; Stop 08/30/16 at 23:48; Status DC Magnesium Oxide 800 mg 800 mg UNSCH PRN PO For Magnesium 1.2 - 1.6 mg/dL; Start 08/30/16 at 11:15; Stop 09/05/16 at 15:15; Status DC Magnesium Sulfate 4 gm/Sodium Chloride 100 ml @ 50 mls/hr UNSCH PRN IV For Magnesium 0.9 - 1.1 mg/dL; Start 08/30/16 at 11:15; Stop 09/05/16 at 15:15; Status DC Magnesium Sulfate 2 gm/Sodium Chloride 100 ml @ 50 mls/hr UNSCH PRN IV For Magnesium 1.2 - 1.6 mg/dL; Start 08/30/16 at 11:15; Stop 09/05/16 at 15:15; Status DC Potassium Chloride 100 ml @ 50 mls/hr Q2H PRN IV For Potassium 2.8 - 3.2 mEq/L ; Start 08/30/16 at 11:15; Stop 09/05/16 at 15:15; Status DC Potassium Chloride 100 ml @ 50 mls/hr Q2H PRN IV For Potassium 3.3 - 3.5 mEq/L ; Start 08/30/16 at 11:15; Stop 09/05/16 at 15:15; Status DC Potassium Chloride 100 ml @ 50 mls/hr Q2H PRN IV For Potassium 2.8 - 3.2 mEq/L ; Start 08/30/16 at 11:15; Stop 09/05/16 at 15:15; Status DC Potassium Chloride (KCl 40 Meq Premix Inj) 100 ml @ 25 mls/hr UNSCH PRN IV For Potassium 3.3 - 3.5 mEq/L; Start 08/30/16 at 11:15; Stop 09/05/16 at 15:15; Status DC Potassium Phosphate (K-Phos) 2,000 mg Q4H PRN PO For Phosphorus < 2.5 mg/dL; Start 08/30/16 at 11:15; Stop 09/05/16 at 15:15; Status DC Potassium Phosphate 2000 mg 2,000 mg UNSCH PRN PO/TUBE SEE LABEL COMMENTS; Start 08/30/16 at 11:15; Stop 09/05/16 at 15:15; Status DC Potassium Phosphate 30 mmol/ Sodium Chloride 260 ml @ 42 mls/hr UNSCH PRN IV SEE LABEL COMMENTS; Start 08/30/16 at 11:15; Stop 09/05/16 at 15:15; Status DC Sodium Phosphate/ Sodium Chloride (Sodium Phosphate Inj/NS 250 ml Inj) 250 ml @ 42 mls/hr UNSCH PRN IV For Phosphorus < 2.5 mg/dL; Start 08/30/16 at 11:15; Stop 09/05/16 at 15:15; Status DC Nicotine (Habitrol 14 Mg Patch.24 Hr) 1 patch DAILY T-DERMAL Last administered on 08/31/16 09:08; Start 08/30/16 at 12:15; Stop 09/01/16 at 20:28; Status DC Miscellaneous Information 1 1 DAILY T-DERMAL Last administered on 08/31/16 09: 00; Start 08/31/16 at 09:00; Stop 09/02/16 at 07:35; Status DC Levofloxacin/ Dextrose 150 ml @ 100 mls/hr Q24H IV Last administered on 12:08; Start 08/31/16 at 12:00; Stop 09/01/16 at 16:38; Status DC Piperacillin Sod/ Tazobactam Sod 50 ml @ 100 mls/hr Q6H IV Last administered on 08/31/16 02:13; Start 08/30/16 at 15:00; Stop 08/31/16 at 06:30; Status DC Pharmacy Profile Note (Vancomycin Consult Pharmacy) 0 ml @ 0 mls/hr UNSCH OTHER ; Start 08/30/16 at 12:15; Stop 09/01/16 at 16:38; Status DC Pantoprazole Sodium (Protonix) 40 mg DAILY PO Last administered on 09/09/16 09 :32; Start 08/30/16 at 12:15 Enoxaparin Sodium 40 mg 40 mg Q24H SQ Last administered on 09/08/16 14:11; Start 08/30/16 at 13:00 Potassium Chloride/Sodium Chloride (NS + KCl 20 Meq Inj) 1,000 ml @ 100 mls/hr Q10H IV Last administered on 09/01/16 15:26; Start 08/30/16 at 12:15; Stop at 16:32; Status DC Albuterol/ Ipratropium (Duoneb Neb) 1 ampule Q6HR NEB PRN NEB SOB/WHEEZING; Start 08/30/16 at 12:15 Acetaminophen (Tylenol) 650 mg Q6H PRN PO PAIN SCALE 1 TO 2; Start 08/30/16 at 12:30; Stop 09/02/16 at 07:32; Status DC Ketorolac Tromethamine (Toradol Inj) 30 mg Q6H PRN IVP Pain 6-10;if unable to take PO Last administered on 08/30/16 13:23; Start 08/30/16 at 12:30; Stop at 06:05; Status DC Acetaminophen/ Hydrocodone Bitart ([place] 5-325 Mg) 1 tab Q4H PRN PO PAIN SCALE 3 TO 5; Start 08/30/16 at 12:30; Stop 09/02/16 at 07:18; Status DC Acetaminophen/ Hydrocodone Bitart ([place] 10-325 Mg) 1 tab Q4H PRN PO PAIN SCALE 6 TO 10 Last administered on 09/02/16 07:00; Start 08/30/16 at 12:30; Stop 09/02/16 at 07:18; Status DC Morphine Sulfate (Morphine Inj) 4 mg Q3H PRN IV PUSH BREAKTHROUGH PAIN Last administered on 09/01/16 15:27; Start 08/30/16 at 13:00; Stop 09/02/16 at 07:32; Status DC Naloxone HCl 0.4 mg 0.4 mg UNSCH PRN IV SEE LABEL COMMENTS; Start 08/30/16 at 12 :30; Stop 09/02/16 at 07:29; Status DC Vancomycin HCl/ Sodium Chloride (Vancomycin Inj/ NS 250 ml Inj) 250 ml @ 250 mls/hr Q12H IV Last administered on 08/30/16 22:24; Start 08/30/16 at 22:00; Stop 08/31/16 at 07:25; Status DC Miscellaneous Information SPECIFIC LAB TO BE DRAWN:VANCO TROUGH DATE... ONCE ONCE .XX ; Start 09/01/16 at 09:45; Stop 09/01/16 at 09:45; Status DC Miscellaneous Information Patient in critical care unit? Ass... [id number] .XX Last administered on 08/30/16 13:50; Start 08/30/16 at 13:45 Chlorhexidine Gluconate (Chlorhexidine 2% Cloth) 3 pack DAILY@04 TOPICAL Last administered on 09/03/16 04:00; Start 08/31/16 at 04:00; Stop 09/04/16 at 04:01; Status DC Chlorhexidine Gluconate (Chlorhexidine 2% Cloth) 3 pack UNSCH PRN TOPICAL HYGIENIC CARE; Start 08/30/16 at 13:45; Stop 09/04/16 at 13:33; Status DC Hydromorphone HCl (Dilaudid Pf Inj) 1 mg STAT ONCE IV PUSH Last administered on 08/30/16 16:13; Start 08/30/16 at 16:00; Stop 08/30/16 at 16:05; Status DC Bacitracin (Baciguent Oint) 1 applic Q12HR TOPICAL Last administered on 10:50; Start 08/30/16 at 21:00 Gadodiamide 15 ml 15 ml STK-MED ONCE IV Last administered on 08/30/16 23:13; Start 08/30/16 at 23:13; Stop 08/30/16 at 23:14; Status DC Lactated Ringer's 1,000 ml @ 999 mls/hr BOLUS ONCE IV Last administered on 00:29; Start 08/30/16 at 23:45; Stop 08/31/16 at 00:45; Status DC Vasopressin 40 units/Dextrose 100 ml @ 4.5 mls/hr [id number] IV Last administered on 08/31/16 17:29; Start 08/30/16 at 23:45; Stop 09/02/16 at 07:18; Status DC Norepinephrine Bitartrate (Levophed-Dextrose Drip) 250 ml @ 0 mls/hr TITRATE IV Last administered on 08/31/16 07:06; Start 08/31/16 at 00:00 Bisacodyl (Dulcolax Supp) 10 mg DAILY RECTAL ; Start 08/31/16 at 09:00 Polyethylene Glycol (Miralax) 17 gm BID PO Last administered on 09/04/16 09:30 ; Start 08/31/16 at 09:00 Lactulose (Lactulose Liq) 30 ml BID PO Last administered on 09/07/16 09:11; Start 08/31/16 at 09:00 Senna/Docusate Sodium 1 tab 1 tab BID PO Last administered on 09/09/16 09:31; Start 08/31/16 at 09:00 Piperacillin Sod/ Tazobactam Sod 100 ml @ 200 mls/hr Q6HR IV ; Start 08/31/16 at 06:30; Stop 08/31/16 at 07:07; Status DC Piperacillin Sod/ Tazobactam Sod 100 ml @ 200 mls/hr Q6H IV Last administered on 09/01/16 14:12; Start 08/31/16 at 08:00; Stop 09/01/16 at 16:38; Status DC Vancomycin HCl/ Sodium Chloride (Vancomycin Inj/ NS 250 ml Inj) 262.5 ml @ 250 mls/hr Q8H IV Last administered on 09/01/16 12:05; Start 08/31/16 at 09:00; Stop 09/01/16 at 13:32; Status DC Miscellaneous Information SPECIFIC LAB TO BE DRAWN:VANCOMYCIN TROUGH DATE TO... ONCE ONCE .XX ; Start 09/01/16 at 08:45; Stop 09/01/16 at 08:46; Status DC Vancomycin HCl/ Sodium Chloride (Vancomycin Inj/ NS 500 ml Inj) 514 ml @ 250 mls/hr Q8H IV ; Start 09/01/16 at 17:00; Stop 09/01/16 at 17:00; Status DC Miscellaneous Information SPECIFIC LAB TO BE DRAWN:VANCO TROUGH DATE... ONCE ONCE .XX ; Start 09/02/16 at 16:45; Stop 09/02/16 at 16:46; Status Cancel Doxycycline Hyclate 100 mg/ Sodium Chloride 100 ml @ 100 mls/hr Q12H IV Last administered on 09/09/16 07:06; Start 09/01/16 at 18:00 Ceftazidime 2000 mg/Sodium Chloride 100 ml @ 200 mls/hr Q8H IV Last administered on 09/09/16 09:32; Start 09/01/16 at 17:00 Dextrose/Sodium Chloride (D5W-NS 1000 ml Inj) 1,000 ml @ 75 mls/hr [id number] IV Last administered on 09/02/16 20:40; Start 09/01/16 at 17:15; Stop 09/05/16 at 12 :30; Status DC Gentamicin Sulfate (Gentamicin Inj) 240 mg STK-MED ONCE .ROUTE Last administered on 09/03/16 08:08; Start 09/01/16 at 18:21; Stop 09/01/16 at 18:22; Status DC Bupivacaine HCl/ Epinephrine Bitart (Sensorcaine-Epi 0.5% 50 ml Inj) 50 ml STK- MED ONCE .ROUTE ; Start 09/01/16 at 19:44; Stop 09/01/16 at 19:45; Status DC Famotidine (Pepcid Inj) 20 mg NOW ONCE IV Last administered on 09/01/16 20:30 ; Start 09/01/16 at 21:00; Stop 09/01/16 at 21:01; Status DC Citric Acid/ Sodium Citrate (Bicitra Liq) 30 ml ONCE ONCE PO Last administered on 09/01/16 20:30; Start 09/01/16 at 21:00; Stop 09/01/16 at 21:01; Status DC Midazolam HCl (Versed Inj) 2 mg ONCE ONCE IV Last administered on 09/01/16 20: 30; Start 09/01/16 at 21:00; Stop 09/01/16 at 21:01; Status DC Midazolam HCl (Versed Inj) 2 mg STK-MED ONCE .ROUTE ; Start 09/01/16 at 20:18; Stop 09/01/16 at 20:19; Status DC Famotidine (Pepcid Inj) 20 mg STK-MED ONCE .ROUTE ; Start 09/01/16 at 20:18; Stop 09/01/16 at 20:19; Status DC Fentanyl Citrate 250 mcg 250 mcg STK-MED ONCE .ROUTE ; Start 09/01/16 at 20:26; Stop 09/01/16 at 20:27; Status DC Ciprofloxacin/ Dextrose (Cipro 400 Mg Premix) 200 ml @ 200 mls/hr Q12H IV Last administered on 09/09/16 09:35; Start 09/01/16 at 21:00 Diphenhydramine HCl (Benadryl) 25 mg Q6H PRN PO ITCHING Last administered on 03:57; Start 09/01/16 at 20:45 Morphine Sulfate (Morphine Inj) 4 mg Q3H PRN IV PUSH break thru pain Last administered on 09/02/16 04:53; Start 09/01/16 at 20:45; Stop 09/02/16 at 07:33; Status DC Acetaminophen/ Hydrocodone Bitart ([place] 10-325 Mg) 1 tab Q3H PRN PO pain 3<10 ; Start 09/01/16 at 20:45; Stop 09/02/16 at 07:19; Status DC Doxycycline Hyclate (Vibramycin Inj) 100 mg STK-MED ONCE IV Last administered on 09/01/16 21:15; Start 09/01/16 at 21:15; Stop 09/01/16 at 21:53; Status DC Ceftazidime (Fortaz Inj) 2,000 mg STK-MED ONCE IM Last administered on 21:15; Start 09/01/16 at 21:15; Stop 09/01/16 at 21:53; Status DC Ciprofloxacin (Cipro Liq) 10,000 mg STK-MED ONCE .XX Last administered on 21:15; Start 09/01/16 at 21:15; Stop 09/01/16 at 21:53; Status DC Morphine Sulfate (*morphine INJ PERIprocedure ONLY) 8 mg STK-MED ONCE .ROUTE Last administered on 09/01/16 22:06; Start 09/01/16 at 22:06; Stop 09/01/16 at 22: 07; Status DC Miscellaneous Information ALL NURSING DEPARTME... UNSCH PRN .XX SEE LABEL COMMENTS; Start 09/01/16 at 22:00; Stop 09/02/16 at 21:59; Status DC Morphine Sulfate (*morphine INJ PERIprocedure ONLY) 8 mg STK-MED ONCE .ROUTE Last administered on 09/01/16 22:17; Start 09/01/16 at 22:17; Stop 09/01/16 at 22: 18; Status DC Morphine Sulfate (*morphine INJ PERIprocedure ONLY) 8 mg STK-MED ONCE .ROUTE Last administered on 09/01/16 22:27; Start 09/01/16 at 22:27; Stop 09/01/16 at 22: 28; Status DC Hydromorphone HCl (*DILAUDID PF INJ PERIprocedural ONLY) 1 mg STK-MED ONCE .ROUTE Last administered on 09/01/16 22:59; Start 09/01/16 at 22:59; Stop at 23:00; Status DC Naloxone HCl (Narcan Inj) 0.4 mg UNSCH PRN IV RESPIRATORY RATE LESS THAN 10; Start 09/02/16 at 07:00 Hydromorphone HCl (Dilaudid CLOTH DOUBLING MACHINE OPERATOR Inj) 6 mg UNSCH IV Last administered on 00:00; Start 09/02/16 at 07:30 CLOTH DOUBLING MACHINE OPERATOR Dosage Infused (Pha) 1 Q8HR OTHER Last administered on 09/09/16 06:00; Start 09/02/16 at 07:30 Acetaminophen (Tylenol) 650 mg Q4H PRN PO fever; Start 09/02/16 at 08:00 Hydromorphone HCl 1 mg 1 mg Q3HR PRN IV PUSH breakthrough pain; Start 09/02/16 at 11:00 Lactated Ringer's (Lr 1000 ml Inj) 1,000 ml @ 75 mls/hr [id number] IV Last administered on 09/03/16 23:17; Start 09/03/16 at 00:00; Stop 09/05/16 at 12:29; Status DC Gentamicin Sulfate (Gentamicin Inj) 240 mg STK-MED ONCE .ROUTE Last administered on 09/03/16 08:10; Start 09/03/16 at 08:14; Stop 09/03/16 at 08:15; Status DC Morphine Sulfate (*morphine INJ PERIprocedure ONLY) 8 mg STK-MED ONCE .ROUTE Last administered on 09/03/16 08:52; Start 09/03/16 at 08:52; Stop 09/03/16 at 08: 53; Status DC Miscellaneous Information ALL NURSING DEPARTME... UNSCH PRN .XX SEE LABEL COMMENTS; Start 09/03/16 at 09:00; Stop 09/04/16 at 08:59; Status DC Midazolam HCl (Versed Inj) 2 mg STK-MED ONCE .ROUTE ; Start 09/03/16 at 08:56; Stop 09/03/16 at 08:57; Status DC Fentanyl Citrate (fentaNYL INJ) 250 mcg STK-MED ONCE .ROUTE ; Start 09/03/16 at 08:56; Stop 09/03/16 at 08:57; Status DC Morphine Sulfate 8 mg 8 mg STK-MED ONCE .ROUTE Last administered on 09/03/16 09 :05; Start 09/03/16 at 09:04; Stop 09/03/16 at 09:05; Status DC Magnesium Sulfate/ Dextrose (Magnesium Sulfate 1 Gm Premix) 100 ml @ 100 mls/ hr Q1H IV Last administered on 09/03/16 11:11; Start 09/03/16 at 10:00; Stop 09/03/16 at 11:59; Status DC Hydromorphone HCl (*DILAUDID PF INJ PERIprocedural ONLY) 1 mg STK-MED ONCE .ROUTE Last administered on 09/03/16 09:15; Start 09/03/16 at 09:08; Stop at 09:09; Status DC Gentamicin Sulfate 240 mg 240 mg STK-MED ONCE .ROUTE ; Start 09/05/16 at 09:42; Stop 09/05/16 at 09:43; Status DC Lactated Ringer's (Lr 1000 ml Inj) 1,000 ml @ 100 mls/hr Q10H IV Last administered on 09/09/16 01:25; Start 09/05/16 at 12:30 Ketorolac Tromethamine (Toradol Inj) 30 mg Q8HR IVP Last administered on 13:36; Start 09/05/16 at 14:00; Stop 09/06/16 at 14:01; Status DC Gentamicin Sulfate (Gentamicin Inj) 240 mg STK-MED ONCE IRRIGATION Last administered on 09/05/16 10:48; Start 09/05/16 at 10:48; Stop 09/05/16 at 11:16 ; Status DC Morphine Sulfate (*morphine INJ PERIprocedure ONLY) 8 mg STK-MED ONCE .ROUTE Last administered on 09/05/16 11:44; Start 09/05/16 at 11:44; Stop 09/05/16 at 11:45; Status DC Fentanyl Citrate (fentaNYL INJ) 250 mcg STK-MED ONCE .ROUTE ; Start 09/05/16 at 11:49; Stop 09/05/16 at 11:50; Status DC Morphine Sulfate (*morphine INJ PERIprocedure ONLY) 8 mg STK-MED ONCE .ROUTE Last administered on 09/05/16 11:55; Start 09/05/16 at 11:55; Stop 09/05/16 at 11:56; Status DC Melatonin 5 mg 5 mg HS PRN PO insomnia Last administered on 09/06/16 23:21; Start 09/06/16 at 22:30 Lactated Ringer's 1,000 ml @ 30 mls/hr Q24H PRN IV SEE LABEL COMMENTS; Start at 03:45; Stop 09/11/16 at 03:44 Sodium Chloride (NS 500 ml Inj) 500 ml @ 30 mls/hr [id number] PRN IV SEE LABEL COMMENTS; Start 09/08/16 at 03:45; Stop 09/11/16 at 03:44 Povidone Iodine (Betadine 5% Antisepsis Kit) 1 applic ENTRY ENGINEER PRN EACH NARE SEE LABEL COMMENTS; Start 09/08/16 at 03:45; Stop 09/11/16 at 03:44 Chlorhexidine Gluconate (Chlorhexidine 2% Cloth) 3 pack ENTRY ENGINEER PRN TOPICAL SEE LABEL COMMENTS; Start 09/08/16 at 03:45; Stop 09/11/16 at 03:44 Hydromorphone HCl (Dilaudid Pf Inj) 2 mg STK-MED ONCE .ROUTE ; Start 09/08/16 at 07:22; Stop 09/08/16 at 07:23; Status DC Gentamicin Sulfate 240 mg 240 mg STK-MED ONCE IRRIGATION Last administered on 07:52; Start 09/08/16 at 07:52; Stop 09/08/16 at 08:18; Status DC Lactated Ringer's (Lr 1000 ml Inj) 1,000 ml @ 100 mls/hr Q10H IV ; Start at 08:11 Ketorolac Tromethamine (Toradol Inj) 30 mg Q8HR IV PUSH ; Start 09/08/16 at 14: 00; Stop 09/10/16 at 06:01 Morphine Sulfate (*morphine INJ PERIprocedure ONLY) 8 mg STK-MED ONCE .ROUTE Last administered on 09/08/16 08:44; Start 09/08/16 at 08:44; Stop 09/08/16 at 08:45; Status DC Midazolam HCl (Versed Inj) 2 mg STK-MED ONCE .ROUTE ; Start 09/08/16 at 08:47; Stop 09/08/16 at 08:48; Status DC Morphine Sulfate 8 mg 8 mg STK-MED ONCE .ROUTE Last administered on 09/08/16 08:52; Start 09/08/16 at 08:52; Stop 09/08/16 at 08:53; Status DC Lactated Ringer's 1,000 ml @ 30 mls/hr Q24H PRN IV SEE LABEL COMMENTS Last administered on 09/08/16 21:41; Start 09/08/16 at 09:00; Stop 09/11/16 at 08:59 Sodium Chloride (NS 500 ml Inj) 500 ml @ 30 mls/hr [id number] PRN IV SEE LABEL COMMENTS; Start 09/08/16 at 09:00; Stop 09/11/16 at 08:59 Metoprolol Tartrate (Lopressor) 25 mg ENTRY ENGINEER PRN PO SEE LABEL COMMENTS; Start 09/08/16 at 09:00; Stop 09/11/16 at 08:59 Povidone Iodine (Betadine 5% Antisepsis Kit) 1 applic ENTRY ENGINEER PRN EACH NARE SEE LABEL COMMENTS; Start 09/08/16 at 09:00; Stop 09/11/16 at 08:59 Chlorhexidine Gluconate (Chlorhexidine 2% Cloth) 3 pack ENTRY ENGINEER PRN TOPICAL SEE LABEL COMMENTS; Start 09/08/16 at 09:00; Stop 09/11/16 at 08:59 Insulin Human Regular (NovoLIN R INJ) See Protocol Table ... ENTRY ENGINEER PRN SQ SEE PROTOCOL TABLE; Start 09/08/16 at 09:00; Stop 09/11/16 at 08:59 Acetaminophen/ Hydrocodone Bitart ([place] 7.5-325 Mg) 1 tab Q3H PRN PO PAIN SCALE 4 TO 10 Last administered on 09/09/16t 09:32; Start 09/09/16 at 06:45 Date of Insertion: Aug 30, 2016 Line: Central Venous Catheter Side: Right Location: Internal, Jugular A/P Assessment and Plan A/P s/p Septic Shock - vibrio Right lower extremity necrotizing fasciitis Lactic acid acidosis-resolved -s/p I/D of the right leg and wound vac placement -s/p Irrigation and debridement of right leg with excisional debridement, closure of right leg fasciotomy wound, application of wound VAC dressing on 09/05 -s/p Irrigation and debridement of right leg, closure of 8 cm of wound, application wound VAC dressing on 09/08/16 -plan for repeated I/D and wound vac change on Monday -continue Ceftazidime,cipro and Doxycycline per ID -continue with pain control- CLOTH DOUBLING MACHINE OPERATOR was discontinued and started on po meds -will monitor and adjust the pain regimen accordingly. Infectious disease and ortho following Chronic tobacco use, currently using nicotine with vaporizer -Incentive spirometry every hour while awake --Tobacco sensation will be encouraged s/p Septic Shock-resolved Echocardiogram 09/12 - EF is 55-60%. No regional wall motion abnormality. Hepatitis C She does not know her genotype for hepatitis C but states her viral load was undetectable last check 6 months ago. f/u as outpatient Acute kidney injury-resolved Monitor renal function. PROPHYLAXIS DVT prevention with Sq Lovenox GI protection with Protonix CODE STATUS Full code Joel Carr MD Sep 09, 2016 11:24
[2016-09-09] MEDS: ENOXAPARIN SODIUM 40 MG/0.4 ML SYRINGE SQ SCH (13:26)
[2016-09-09] MEDS: oxyCODONE/ACETAMINOPHEN 10 MG/325 MG TAB PO PRN ×2 (17:35→22:18)
[2016-09-09] MEDS: HYDROmorphone HCL PF 1 MG/ML VIAL IV PUSH PRN (20:09)
[2016-09-09] MEDS: MELATONIN 5 MG TAB PO PRN (22:25)
[2016-09-10 00:10] VITALS: BP 109/55; PULSE 56; RESP 18; TEMP 97.3; O2SAT 98
[2016-09-10] MEDS: HYDROmorphone HCL PF 1 MG/ML VIAL IV PUSH PRN ×5 (01:03→23:58)
[2016-09-10] MEDS: cefTAZidime INJ 2,000 MG in SODIUM CHLORIDE 0.9% INJ 100 ML IV SCH ×4 (01:03→23:58)
[2016-09-10] MEDS: KETOROLAC TROMETHAMINE 30 MG/ML (IVP) VIAL IV PUSH SCH (06:00)
[2016-09-10] MEDS: oxyCODONE/ACETAMINOPHEN 10 MG/325 MG TAB PO PRN ×4 (06:18→22:57)
[2016-09-10] MEDS: DOXYCYCLINE INJ 100 MG in SODIUM CHLORIDE 0.9% INJ 100 ML IV SCH ×2 (06:18→17:41)
[2016-09-10 06:32] LABS: AUTOMATED NEUTROPHIL # 2.6 TH/MM3 (1.8-7.7); BASOPHIL # 0.1 TH/MM3 (0-0.2); BASOPHIL % 1.2 % (0.0-2.0); EOSINOPHIL # 0.2 TH/MM3 (0-0.4); HEMATOCRIT 32.2 % (35.0-46.0); LYMPH % 48.6 % (9.0-44.0); LYMPHOCYTE # 3.3 TH/MM3 (1.0-4.8); MEAN CELL VOLUME 89.7 FL (80.0-100.0); MEAN CORPUSCULAR HGB CONC 34.5 % (32.0-36.0); MONO % 8.8 % (0.0-8.0); NEUT % 38.4 % (16.0-70.0); PLATELET COUNT 375 TH/MM3 (150-450); RED BLOOD COUNT 3.59 MIL/MM3 (4.00-5.30); RED CELL DISTRIBUTION WIDTH 14.4 % (11.6-17.2); WHITE BLOOD COUNT 6.8 TH/MM3 (4.0-11.0)
[2016-09-10 06:37] LABS: HEMO FLAGS AUTO DIFF
[2016-09-10 06:46] LABS: BICARBONATE 29.2 MEQ/L (21.0-32.0)
[2016-09-10 08:00] VITALS: BP 113/69; PULSE 62; RESP 16; TEMP 96.8; O2SAT 98
[2016-09-10] MEDS: PANTOPRAZOLE SOD 40 MG DELAYED RELEASE TAB PO SCH (08:42)
[2016-09-10] MEDS: CIPROFLOXACIN 400 MG PREMIX 200 ML IV SCH ×2 (08:42→19:44)
[2016-09-10] MEDS: BISACODYL 10 MG SUPP RECTAL SCH (08:57)
[2016-09-10] MEDS: POLYETHYLENE GLYCOL 17 GM PKG PO SCH ×2 (08:57→19:44)
[2016-09-10] MEDS: LACTULOSE SYRUP 20 GM/30 ML CUP PO SCH ×2 (08:57→19:45)
[2016-09-10] MEDS: DOCUSATE SODIUM 50 MG/SENNA 8.6 MG TAB PO SCH ×2 (08:57→19:44)
[2016-09-10] MEDS: BACITRACIN TOP OINT 15 GM TUBE TOPICAL SCH ×2 (08:58→19:44)
[2016-09-10 09:18] LABS: BANDS 2 % (0-6); BASOPHILS 1 % (0-2); EOSINOPHILS 5 % (0-4); METAMYELOCYTES 1 % (0-1); MYELOCYTES 1 % (0-0); NEUTROPHIL # MANUAL DIFF 3.1 TH/MM3 (1.8-7.7); PLATELET ESTIMATE SMEAR NORMAL (NORMAL); PLATELET MORPHOLOGY NORMAL (NORMAL); POLYS (SEG NEUTROPHILS) 41 % (16-70); SCAN/DIFF FINAL DIFF MANUAL; WBC DIFF SAMPLE 100
--- NOTE | 2016-09-10 09:22 | PD.ORT.PN ---
Subjective Post Op Day #: 5 Subjective Remarks Pt sitting upright, dressed and very pleasant. Admits right lower extremity pain is controlled at this time. Has questions about when skin graft will be placed. No new complaints. Objective Vitals Vital Signs Date Time Temp Pulse Resp B/P Pulse Ox O2 Delivery O2 Flow Rate FiO2 09/10/16 00:10 97.3 56 18 109/55 98 09/09/16 20:10 98.7 88 18 114/70 99 09/09/16 16:00 97.6 62 18 116/61 100 09/09/16 14:30 16 09/09/16 14:00 16 09/09/16 12:00 97.5 56 18 116/65 100 I/O 09/09/16 09/09/16 09/09/16 09/10/16 09/10/16 09/10/16 07:00 15:00 23:00 07:00 15:00 23:00 Intake Total 688 ml 1225 ml 360 ml 240 ml Output Total 0 ml 0 ml 0 ml Balance 688 ml 1225 ml 360 ml 240 ml Intake Oral 240 ml 1225 ml 360 ml 240 ml IV Total 448 ml Drainage Total 0 ml 0 ml 0 ml # Voids 1 8 2 5 # Bowel Movements 0 2 0 0 Result Diagram: 09/10/16 0615 09/10/16 0615 Other Results Laboratory Tests Test 09/09/16 09/10/16 06:30 06:15 Creatinine 0.46 MG/DL 0.50 MG/DL Estimat Glomerular Filtration 162 ML/MIN 147 ML/MIN Rate White Blood Count 6.8 TH/MM3 Red Blood Count 3.59 MIL/MM3 Hemoglobin 11.1 GM/DL Hematocrit 32.2 % Mean Corpuscular Volume 89.7 FL Mean Corpuscular Hemoglobin 31.0 PG Mean Corpuscular Hemoglobin 34.5 % Concent Red Cell Distribution Width 14.4 % Platelet Count 375 TH/MM3 Mean Platelet Volume 8.9 FL Neutrophils (%) (Auto) 38.4 % Lymphocytes (%) (Auto) 48.6 % Monocytes (%) (Auto) 8.8 % Eosinophils (%) (Auto) 3.0 % Basophils (%) (Auto) 1.2 % Neutrophils # (Auto) 2.6 TH/MM3 Lymphocytes # (Auto) 3.3 TH/MM3 Monocytes # (Auto) 0.6 TH/MM3 Eosinophils # (Auto) 0.2 TH/MM3 Basophils # (Auto) 0.1 TH/MM3 CBC Comment AUTO DIFF Sodium Level 141 MEQ/L Potassium Level 4.0 MEQ/L Chloride Level 105 MEQ/L Carbon Dioxide Level 29.2 MEQ/L Anion Gap 7 MEQ/L Blood Urea Nitrogen 3 MG/DL Random Glucose 88 MG/DL Calcium Level 8.7 MG/DL Imaging Last Impressions Chest X-Ray 08/30/16 1145 Signed Impressions: Service Date/Time: Tuesday, August 30, 2016 11:52 - CONCLUSION: Right jugular line as above. No evidence of pneumothorax. Buck Garza MD Lower Extremity MRI 08/30/16 0000 Signed Impressions: Service Date/Time: Tuesday, August 30, 2016 20:23 - CONCLUSION: Edema within the deep subcutaneous fat abutting the muscular compartments. Edema within the muscular compartments is not seen. Early compartment syndrome cannot be totally ruled out with MR. Evan Vargas MD Procedures s/p I&D and vac application Objective Remarks RLE: +swelling and erythema of lower leg - improving. vac present with good seal. NVI. no evidence of necrosis Assessment & Plan Ortho Post Op Day #: 5 Problem List: (1) Vibrio (2) Septic shock (3) Leukocytosis (4) Sepsis (5) Cellulitis of leg, right Assessment and Plan 1) Right Leg vibrio infection s/p I&D and vac application #5 - POD 1 -NWB -maintain vac at all time -infectious disease for IV Abx -plan for repeat I&D and vac change Monday Nothing by mouth after midnight Monday night Discontinue [employer] and use oral pain medications Becca Burgos Sep 10, 2016 09:22
[2016-09-10] MEDS: LACTATED RINGER'S 1000 ML INJ 1,000 ML IV SCH ×4 (10:11→22:02)
[2016-09-10 12:00] VITALS: BP 107/66; PULSE 59; RESP 16; TEMP 97.2; O2SAT 98
--- NOTE | 2016-09-10 12:38 | HHI.PR ---
Subjective Remarks fairly comfortable. pain seems to be controlled. no fever. no other complaints. Objective Vitals Vital Signs Date Time Temp Pulse Resp B/P Pulse Ox O2 Delivery O2 Flow Rate FiO2 09/10/16 09:13 18 09/10/16 08:00 96.8 62 16 113/69 98 09/10/16 00:10 97.3 56 18 109/55 98 09/09/16 20:10 98.7 88 18 114/70 99 09/09/16 16:00 97.6 62 18 116/61 100 09/09/16 14:30 16 09/09/16 14:00 16 I/O 09/09/16 09/09/16 09/09/16 09/10/16 09/10/16 09/10/16 07:00 15:00 23:00 07:00 15:00 23:00 Intake Total 688 ml 1225 ml 360 ml 240 ml Output Total 0 ml 0 ml 0 ml Balance 688 ml 1225 ml 360 ml 240 ml Intake Oral 240 ml 1225 ml 360 ml 240 ml IV Total 448 ml Drainage Total 0 ml 0 ml 0 ml # Voids 1 8 2 5 # Bowel Movements 0 2 0 0 Result Diagram: 09/10/16 0615 09/10/16 0615 Imaging Last Impressions Chest X-Ray 08/30/16 1145 Signed Impressions: Service Date/Time: Tuesday, August 30, 2016 11:52 - CONCLUSION: Right jugular line as above. No evidence of pneumothorax. Buck Garza MD Lower Extremity MRI 08/30/16 0000 Signed Impressions: Service Date/Time: Tuesday, August 30, 2016 20:23 - CONCLUSION: Edema within the deep subcutaneous fat abutting the muscular compartments. Edema within the muscular compartments is not seen. Early compartment syndrome cannot be totally ruled out with MR. Evan Vargas MD Objective Remarks GENERAL: This is a well-nourished, well-developed patient, in no apparent distress. CARDIOVASCULAR: Regular rate and regular rhythm without murmurs, gallops, or rubs. RESPIRATORY: Clear to auscultation. Breath sounds equal bilaterally. No wheezes , rales, or rhonchi. GASTROINTESTINAL: Abdomen soft, non-tender, nondistended. Normal, active bowel sounds MUSCULOSKELETAL: wound vac in place on right lower extremity NEURO: Alert & Oriented x4 to person, place, time, situation. Moves all ext x4 Procedures I/D of the right leg/ wound vac placement central line placement Medications and IVs Current Medications Sodium Chloride (NS 1000 ml Inj) 1,000 ml @ 1,000 mls/hr Q1H ONCE IV Last administered on 08/30/16 08:45; Start 08/30/16 at 08:11; Stop 08/30/16 at 09:10; Status DC Sodium Chloride (NS Flush) 2 ml UNSCH PRN IVF FLUSH AFTER USING IV ACCESS; Start 08/30/16 at 08:15 Ondansetron HCl (Zofran Inj) 4 mg ONCE ONCE IM Last administered on 08/30/16 08:45; Start 08/30/16 at 08:15; Stop 08/30/16 at 08:16; Status DC Morphine Sulfate 4 mg 4 mg ONCE ONCE IV PUSH ; Start 08/30/16 at 08:15; Stop 08/30/16 at 08:16; Status DC Vancomycin HCl 1050 mg/Sodium Chloride 260.5 ml @ 250 mls/hr ONCE ONCE IV ; Start 08/30/16 at 08:30; Stop 08/30/16 at 09:32; Status Cancel Piperacillin Sod/ Tazobactam Sod 50 ml @ 100 mls/hr ONCE ONCE IV Last administered on 08/30/16 08:45; Start 08/30/16 at 08:30; Stop 08/30/16 at 08:59; Status DC Sodium Chloride (NS 1000 ml Inj) 1,000 ml @ 999 mls/hr BOLUS ONCE IV Last administered on 08/30/16 08:45; Start 08/30/16 at 08:30; Stop 08/30/16 at 09:30; Status DC Tetanus/ Diphtheria Toxoids (Tetanus/ Diphtheria Tox Adult) 0.5 ml ONCE ONCE IM Last administered on 08/30/16 08:47; Start 08/30/16 at 08:45; Stop 08/30/16 at 08:46; Status DC Fentanyl Citrate (fentaNYL INJ) 50 mcg ONCE ONCE IV PUSH ; Start 08/30/16 at 08: 45; Stop 08/30/16 at 08:46; Status Cancel Fentanyl Citrate 50 mcg 50 mcg ONCE ONCE IV Last administered on 08/30/16 11: 54; Start 08/30/16 at 09:00; Stop 08/30/16 at 09:01; Status DC Vancomycin HCl 1000 mg/Sodium Chloride 250 ml @ 250 mls/hr ONCE ONCE IV Last administered on 08/30/16 09:31; Start 08/30/16 at 09:15; Stop 08/30/16 at 10:14; Status DC Levofloxacin/ Dextrose 150 ml @ 100 mls/hr ONCE ONCE IV Last administered on 08/30/16 11:46; Start 08/30/16 at 09:15; Stop 08/30/16 at 10:44; Status DC Sodium Chloride 1,000 ml @ 999 mls/hr BOLUS ONCE IV Last administered on 10:00; Start 08/30/16 at 10:00; Stop 08/30/16 at 11:00; Status DC Norepinephrine Bitartrate (Levophed-Dextrose Drip) 250 ml @ 0 mls/hr TITRATE IV ; Start 08/30/16 at 11:00; Stop 08/30/16 at 23:48; Status DC Magnesium Oxide 800 mg 800 mg UNSCH PRN PO For Magnesium 1.2 - 1.6 mg/dL; Start 08/30/16 at 11:15; Stop 09/05/16 at 15:15; Status DC Magnesium Sulfate 4 gm/Sodium Chloride 100 ml @ 50 mls/hr UNSCH PRN IV For Magnesium 0.9 - 1.1 mg/dL; Start 08/30/16 at 11:15; Stop 09/05/16 at 15:15; Status DC Magnesium Sulfate 2 gm/Sodium Chloride 100 ml @ 50 mls/hr UNSCH PRN IV For Magnesium 1.2 - 1.6 mg/dL; Start 08/30/16 at 11:15; Stop 09/05/16 at 15:15; Status DC Potassium Chloride 100 ml @ 50 mls/hr Q2H PRN IV For Potassium 2.8 - 3.2 mEq/L ; Start 08/30/16 at 11:15; Stop 09/05/16 at 15:15; Status DC Potassium Chloride 100 ml @ 50 mls/hr Q2H PRN IV For Potassium 3.3 - 3.5 mEq/L ; Start 08/30/16 at 11:15; Stop 09/05/16 at 15:15; Status DC Potassium Chloride 100 ml @ 50 mls/hr Q2H PRN IV For Potassium 2.8 - 3.2 mEq/L ; Start 08/30/16 at 11:15; Stop 09/05/16 at 15:15; Status DC Potassium Chloride (KCl 40 Meq Premix Inj) 100 ml @ 25 mls/hr UNSCH PRN IV For Potassium 3.3 - 3.5 mEq/L; Start 08/30/16 at 11:15; Stop 09/05/16 at 15:15; Status DC Potassium Phosphate (K-Phos) 2,000 mg Q4H PRN PO For Phosphorus < 2.5 mg/dL; Start 08/30/16 at 11:15; Stop 09/05/16 at 15:15; Status DC Potassium Phosphate 2000 mg 2,000 mg UNSCH PRN PO/TUBE SEE LABEL COMMENTS; Start 08/30/16 at 11:15; Stop 09/05/16 at 15:15; Status DC Potassium Phosphate 30 mmol/ Sodium Chloride 260 ml @ 42 mls/hr UNSCH PRN IV SEE LABEL COMMENTS; Start 08/30/16 at 11:15; Stop 09/05/16 at 15:15; Status DC Sodium Phosphate/ Sodium Chloride (Sodium Phosphate Inj/NS 250 ml Inj) 250 ml @ 42 mls/hr UNSCH PRN IV For Phosphorus < 2.5 mg/dL; Start 08/30/16 at 11:15; Stop 09/05/16 at 15:15; Status DC Nicotine (Habitrol 14 Mg Patch.24 Hr) 1 patch DAILY T-DERMAL Last administered on 08/31/16 09:08; Start 08/30/16 at 12:15; Stop 09/01/16 at 20:28; Status DC Miscellaneous Information 1 1 DAILY T-DERMAL Last administered on 08/31/16 09: 00; Start 08/31/16 at 09:00; Stop 09/02/16 at 07:35; Status DC Levofloxacin/ Dextrose 150 ml @ 100 mls/hr Q24H IV Last administered on 12:08; Start 08/31/16 at 12:00; Stop 09/01/16 at 16:38; Status DC Piperacillin Sod/ Tazobactam Sod 50 ml @ 100 mls/hr Q6H IV Last administered on 08/31/16 02:13; Start 08/30/16 at 15:00; Stop 08/31/16 at 06:30; Status DC Pharmacy Profile Note (Vancomycin Consult Pharmacy) 0 ml @ 0 mls/hr UNSCH OTHER ; Start 08/30/16 at 12:15; Stop 09/01/16 at 16:38; Status DC Pantoprazole Sodium (Protonix) 40 mg DAILY PO Last administered on 09/10/16 08 :42; Start 08/30/16 at 12:15 Enoxaparin Sodium 40 mg 40 mg Q24H SQ Last administered on 09/09/16 13:26; Start 08/30/16 at 13:00 Potassium Chloride/Sodium Chloride (NS + KCl 20 Meq Inj) 1,000 ml @ 100 mls/hr Q10H IV Last administered on 09/01/16 15:26; Start 08/30/16 at 12:15; Stop at 16:32; Status DC Albuterol/ Ipratropium (Duoneb Neb) 1 ampule Q6HR NEB PRN NEB SOB/WHEEZING; Start 08/30/16 at 12:15 Acetaminophen (Tylenol) 650 mg Q6H PRN PO PAIN SCALE 1 TO 2; Start 08/30/16 at 12:30; Stop 09/02/16 at 07:32; Status DC Ketorolac Tromethamine (Toradol Inj) 30 mg Q6H PRN IVP Pain 6-10;if unable to take PO Last administered on 08/30/16 13:23; Start 08/30/16 at 12:30; Stop at 06:05; Status DC Acetaminophen/ Hydrocodone Bitart (Seffner 5-325 Mg) 1 tab Q4H PRN PO PAIN SCALE 3 TO 5; Start 08/30/16 at 12:30; Stop 09/02/16 at 07:18; Status DC Acetaminophen/ Hydrocodone Bitart (Seffner 10-325 Mg) 1 tab Q4H PRN PO PAIN SCALE 6 TO 10 Last administered on 09/02/16 07:00; Start 08/30/16 at 12:30; Stop 09/02/16 at 07:18; Status DC Morphine Sulfate (Morphine Inj) 4 mg Q3H PRN IV PUSH BREAKTHROUGH PAIN Last administered on 09/01/16 15:27; Start 08/30/16 at 13:00; Stop 09/02/16 at 07:32; Status DC Naloxone HCl 0.4 mg 0.4 mg UNSCH PRN IV SEE LABEL COMMENTS; Start 08/30/16 at 12 :30; Stop 09/02/16 at 07:29; Status DC Vancomycin HCl/ Sodium Chloride (Vancomycin Inj/ NS 250 ml Inj) 250 ml @ 250 mls/hr Q12H IV Last administered on 08/30/16 22:24; Start 08/30/16 at 22:00; Stop 08/31/16 at 07:25; Status DC Miscellaneous Information SPECIFIC LAB TO BE DRAWN:VANCO TROUGH DATE... ONCE ONCE .XX ; Start 09/01/16 at 09:45; Stop 09/01/16 at 09:45; Status DC Miscellaneous Information Patient in critical care unit? Ass... Q361D .XX Last administered on 08/30/16 13:50; Start 08/30/16 at 13:45 Chlorhexidine Gluconate (Chlorhexidine 2% Cloth) 3 pack DAILY@04 TOPICAL Last administered on 09/03/16 04:00; Start 08/31/16 at 04:00; Stop 09/04/16 at 04:01; Status DC Chlorhexidine Gluconate (Chlorhexidine 2% Cloth) 3 pack UNSCH PRN TOPICAL HYGIENIC CARE; Start 08/30/16 at 13:45; Stop 09/04/16 at 13:33; Status DC Hydromorphone HCl (Dilaudid Pf Inj) 1 mg STAT ONCE IV PUSH Last administered on 08/30/16 16:13; Start 08/30/16 at 16:00; Stop 08/30/16 at 16:05; Status DC Bacitracin (Baciguent Oint) 1 applic Q12HR TOPICAL Last administered on 20:08; Start 08/30/16 at 21:00 Gadodiamide 15 ml 15 ml STK-MED ONCE IV Last administered on 08/30/16 23:13; Start 08/30/16 at 23:13; Stop 08/30/16 at 23:14; Status DC Lactated Ringer's 1,000 ml @ 999 mls/hr BOLUS ONCE IV Last administered on 00:29; Start 08/30/16 at 23:45; Stop 08/31/16 at 00:45; Status DC Vasopressin 40 units/Dextrose 100 ml @ 4.5 mls/hr [id number] IV Last administered on 08/31/16 17:29; Start 08/30/16 at 23:45; Stop 09/02/16 at 07:18; Status DC Norepinephrine Bitartrate (Levophed-Dextrose Drip) 250 ml @ 0 mls/hr TITRATE IV Last administered on 08/31/16 07:06; Start 08/31/16 at 00:00 Bisacodyl (Dulcolax Supp) 10 mg DAILY RECTAL ; Start 08/31/16 at 09:00 Polyethylene Glycol (Miralax) 17 gm BID PO Last administered on 09/04/16 09:30 ; Start 08/31/16 at 09:00 Lactulose (Lactulose Liq) 30 ml BID PO Last administered on 09/07/16 09:11; Start 08/31/16 at 09:00 Senna/Docusate Sodium 1 tab 1 tab BID PO Last administered on 09/09/16 09:31; Start 08/31/16 at 09:00 Piperacillin Sod/ Tazobactam Sod 100 ml @ 200 mls/hr Q6HR IV ; Start 08/31/16 at 06:30; Stop 08/31/16 at 07:07; Status DC Piperacillin Sod/ Tazobactam Sod 100 ml @ 200 mls/hr Q6H IV Last administered on 09/01/16 14:12; Start 08/31/16 at 08:00; Stop 09/01/16 at 16:38; Status DC Vancomycin HCl/ Sodium Chloride (Vancomycin Inj/ NS 250 ml Inj) 262.5 ml @ 250 mls/hr Q8H IV Last administered on 09/01/16 12:05; Start 08/31/16 at 09:00; Stop 09/01/16 at 13:32; Status DC Miscellaneous Information SPECIFIC LAB TO BE DRAWN:VANCOMYCIN TROUGH DATE TO... ONCE ONCE .XX ; Start 09/01/16 at 08:45; Stop 09/01/16 at 08:46; Status DC Vancomycin HCl/ Sodium Chloride (Vancomycin Inj/ NS 500 ml Inj) 514 ml @ 250 mls/hr Q8H IV ; Start 09/01/16 at 17:00; Stop 09/01/16 at 17:00; Status DC Miscellaneous Information SPECIFIC LAB TO BE DRAWN:VANCO TROUGH DATE... ONCE ONCE .XX ; Start 09/02/16 at 16:45; Stop 09/02/16 at 16:46; Status Cancel Doxycycline Hyclate 100 mg/ Sodium Chloride 100 ml @ 100 mls/hr Q12H IV Last administered on 09/10/16 06:18; Start 09/01/16 at 18:00 Ceftazidime 2000 mg/Sodium Chloride 100 ml @ 200 mls/hr Q8H IV Last administered on 09/10/16 08:42; Start 09/01/16 at 17:00 Dextrose/Sodium Chloride (D5W-NS 1000 ml Inj) 1,000 ml @ 75 mls/hr [id number] IV Last administered on 09/02/16 20:40; Start 09/01/16 at 17:15; Stop 09/05/16 at 12 :30; Status DC Gentamicin Sulfate (Gentamicin Inj) 240 mg STK-MED ONCE .ROUTE Last administered on 09/03/16 08:08; Start 09/01/16 at 18:21; Stop 09/01/16 at 18:22; Status DC Bupivacaine HCl/ Epinephrine Bitart (Sensorcaine-Epi 0.5% 50 ml Inj) 50 ml STK- MED ONCE .ROUTE ; Start 09/01/16 at 19:44; Stop 09/01/16 at 19:45; Status DC Famotidine (Pepcid Inj) 20 mg NOW ONCE IV Last administered on 09/01/16 20:30 ; Start 09/01/16 at 21:00; Stop 09/01/16 at 21:01; Status DC Citric Acid/ Sodium Citrate (Bicitra Liq) 30 ml ONCE ONCE PO Last administered on 09/01/16 20:30; Start 09/01/16 at 21:00; Stop 09/01/16 at 21:01; Status DC Midazolam HCl (Versed Inj) 2 mg ONCE ONCE IV Last administered on 09/01/16 20: 30; Start 09/01/16 at 21:00; Stop 09/01/16 at 21:01; Status DC Midazolam HCl (Versed Inj) 2 mg STK-MED ONCE .ROUTE ; Start 09/01/16 at 20:18; Stop 09/01/16 at 20:19; Status DC Famotidine (Pepcid Inj) 20 mg STK-MED ONCE .ROUTE ; Start 09/01/16 at 20:18; Stop 09/01/16 at 20:19; Status DC Fentanyl Citrate 250 mcg 250 mcg STK-MED ONCE .ROUTE ; Start 09/01/16 at 20:26; Stop 09/01/16 at 20:27; Status DC Ciprofloxacin/ Dextrose (Cipro 400 Mg Premix) 200 ml @ 200 mls/hr Q12H IV Last administered on 09/10/16 08:42; Start 09/01/16 at 21:00 Diphenhydramine HCl (Benadryl) 25 mg Q6H PRN PO ITCHING Last administered on 03:57; Start 09/01/16 at 20:45 Morphine Sulfate (Morphine Inj) 4 mg Q3H PRN IV PUSH break thru pain Last administered on 09/02/16 04:53; Start 09/01/16 at 20:45; Stop 09/02/16 at 07:33; Status DC Acetaminophen/ Hydrocodone Bitart (Seffner 10-325 Mg) 1 tab Q3H PRN PO pain 3<10 ; Start 09/01/16 at 20:45; Stop 09/02/16 at 07:19; Status DC Doxycycline Hyclate (Vibramycin Inj) 100 mg STK-MED ONCE IV Last administered on 09/01/16 21:15; Start 09/01/16 at 21:15; Stop 09/01/16 at 21:53; Status DC Ceftazidime (Fortaz Inj) 2,000 mg STK-MED ONCE IM Last administered on 21:15; Start 09/01/16 at 21:15; Stop 09/01/16 at 21:53; Status DC Ciprofloxacin (Cipro Liq) 10,000 mg STK-MED ONCE .XX Last administered on 21:15; Start 09/01/16 at 21:15; Stop 09/01/16 at 21:53; Status DC Morphine Sulfate (*morphine INJ PERIprocedure ONLY) 8 mg STK-MED ONCE .ROUTE Last administered on 09/01/16 22:06; Start 09/01/16 at 22:06; Stop 09/01/16 at 22: 07; Status DC Miscellaneous Information ALL NURSING DEPARTME... UNSCH PRN .XX SEE LABEL COMMENTS; Start 09/01/16 at 22:00; Stop 09/02/16 at 21:59; Status DC Morphine Sulfate (*morphine INJ PERIprocedure ONLY) 8 mg STK-MED ONCE .ROUTE Last administered on 09/01/16 22:17; Start 09/01/16 at 22:17; Stop 09/01/16 at 22: 18; Status DC Morphine Sulfate (*morphine INJ PERIprocedure ONLY) 8 mg STK-MED ONCE .ROUTE Last administered on 09/01/16 22:27; Start 09/01/16 at 22:27; Stop 09/01/16 at 22: 28; Status DC Hydromorphone HCl (*DILAUDID PF INJ PERIprocedural ONLY) 1 mg STK-MED ONCE .ROUTE Last administered on 09/01/16 22:59; Start 09/01/16 at 22:59; Stop at 23:00; Status DC Naloxone HCl (Narcan Inj) 0.4 mg UNSCH PRN IV RESPIRATORY RATE LESS THAN 10; Start 09/02/16 at 07:00 Hydromorphone HCl (Dilaudid THEATER MANAGER Inj) 6 mg UNSCH IV Last administered on 00:00; Start 09/02/16 at 07:30 THEATER MANAGER Dosage Infused (Pha) 1 Q8HR OTHER Last administered on 09/09/16 14:00; Start 09/02/16 at 07:30 Acetaminophen (Tylenol) 650 mg Q4H PRN PO fever; Start 09/02/16 at 08:00 Hydromorphone HCl 1 mg 1 mg Q3HR PRN IV PUSH breakthrough pain Last administered on 09/10/16 08:43; Start 09/02/16 at 11:00 Lactated Ringer's (Lr 1000 ml Inj) 1,000 ml @ 75 mls/hr [id number] IV Last administered on 09/03/16 23:17; Start 09/03/16 at 00:00; Stop 09/05/16 at 12:29; Status DC Gentamicin Sulfate (Gentamicin Inj) 240 mg STK-MED ONCE .ROUTE Last administered on 09/03/16 08:10; Start 09/03/16 at 08:14; Stop 09/03/16 at 08:15; Status DC Morphine Sulfate (*morphine INJ PERIprocedure ONLY) 8 mg STK-MED ONCE .ROUTE Last administered on 09/03/16 08:52; Start 09/03/16 at 08:52; Stop 09/03/16 at 08: 53; Status DC Miscellaneous Information ALL NURSING DEPARTME... UNSCH PRN .XX SEE LABEL COMMENTS; Start 09/03/16 at 09:00; Stop 09/04/16 at 08:59; Status DC Midazolam HCl (Versed Inj) 2 mg STK-MED ONCE .ROUTE ; Start 09/03/16 at 08:56; Stop 09/03/16 at 08:57; Status DC Fentanyl Citrate (fentaNYL INJ) 250 mcg STK-MED ONCE .ROUTE ; Start 09/03/16 at 08:56; Stop 09/03/16 at 08:57; Status DC Morphine Sulfate 8 mg 8 mg STK-MED ONCE .ROUTE Last administered on 09/03/16 09 :05; Start 09/03/16 at 09:04; Stop 09/03/16 at 09:05; Status DC Magnesium Sulfate/ Dextrose (Magnesium Sulfate 1 Gm Premix) 100 ml @ 100 mls/ hr Q1H IV Last administered on 09/03/16 11:11; Start 09/03/16 at 10:00; Stop 09/03/16 at 11:59; Status DC Hydromorphone HCl (*DILAUDID PF INJ PERIprocedural ONLY) 1 mg STK-MED ONCE .ROUTE Last administered on 09/03/16 09:15; Start 09/03/16 at 09:08; Stop at 09:09; Status DC Gentamicin Sulfate 240 mg 240 mg STK-MED ONCE .ROUTE ; Start 09/05/16 at 09:42; Stop 09/05/16 at 09:43; Status DC Lactated Ringer's (Lr 1000 ml Inj) 1,000 ml @ 100 mls/hr Q10H IV Last administered on 09/09/16 01:25; Start 09/05/16 at 12:30 Ketorolac Tromethamine (Toradol Inj) 30 mg Q8HR IVP Last administered on 13:36; Start 09/05/16 at 14:00; Stop 09/06/16 at 14:01; Status DC Gentamicin Sulfate (Gentamicin Inj) 240 mg STK-MED ONCE IRRIGATION Last administered on 09/05/16 10:48; Start 09/05/16 at 10:48; Stop 09/05/16 at 11:16 ; Status DC Morphine Sulfate (*morphine INJ PERIprocedure ONLY) 8 mg STK-MED ONCE .ROUTE Last administered on 09/05/16 11:44; Start 09/05/16 at 11:44; Stop 09/05/16 at 11:45; Status DC Fentanyl Citrate (fentaNYL INJ) 250 mcg STK-MED ONCE .ROUTE ; Start 09/05/16 at 11:49; Stop 09/05/16 at 11:50; Status DC Morphine Sulfate (*morphine INJ PERIprocedure ONLY) 8 mg STK-MED ONCE .ROUTE Last administered on 09/05/16 11:55; Start 09/05/16 at 11:55; Stop 09/05/16 at 11:56; Status DC Melatonin 5 mg 5 mg HS PRN PO insomnia Last administered on 09/09/16 22:25; Start 09/06/16 at 22:30 Lactated Ringer's 1,000 ml @ 30 mls/hr Q24H PRN IV SEE LABEL COMMENTS; Start at 03:45; Stop 09/11/16 at 03:44 Sodium Chloride (NS 500 ml Inj) 500 ml @ 30 mls/hr [id number] PRN IV SEE LABEL COMMENTS; Start 09/08/16 at 03:45; Stop 09/11/16 at 03:44 Povidone Iodine (Betadine 5% Antisepsis Kit) 1 applic DIRECTOR CLINICAL DATA PRN EACH NARE SEE LABEL COMMENTS; Start 09/08/16 at 03:45; Stop 09/11/16 at 03:44 Chlorhexidine Gluconate (Chlorhexidine 2% Cloth) 3 pack DIRECTOR CLINICAL DATA PRN TOPICAL SEE LABEL COMMENTS; Start 09/08/16 at 03:45; Stop 09/11/16 at 03:44 Hydromorphone HCl (Dilaudid Pf Inj) 2 mg STK-MED ONCE .ROUTE ; Start 09/08/16 at 07:22; Stop 09/08/16 at 07:23; Status DC Gentamicin Sulfate 240 mg 240 mg STK-MED ONCE IRRIGATION Last administered on 07:52; Start 09/08/16 at 07:52; Stop 09/08/16 at 08:18; Status DC Lactated Ringer's (Lr 1000 ml Inj) 1,000 ml @ 100 mls/hr Q10H IV ; Start at 08:11 Ketorolac Tromethamine (Toradol Inj) 30 mg Q8HR IV PUSH ; Start 09/08/16 at 14: 00; Stop 09/10/16 at 06:01; Status DC Morphine Sulfate (*morphine INJ PERIprocedure ONLY) 8 mg STK-MED ONCE .ROUTE Last administered on 09/08/16 08:44; Start 09/08/16 at 08:44; Stop 09/08/16 at 08:45; Status DC Midazolam HCl (Versed Inj) 2 mg STK-MED ONCE .ROUTE ; Start 09/08/16 at 08:47; Stop 09/08/16 at 08:48; Status DC Morphine Sulfate 8 mg 8 mg STK-MED ONCE .ROUTE Last administered on 09/08/16 08:52; Start 09/08/16 at 08:52; Stop 09/08/16 at 08:53; Status DC Lactated Ringer's 1,000 ml @ 30 mls/hr Q24H PRN IV SEE LABEL COMMENTS Last administered on 09/08/16 21:41; Start 09/08/16 at 09:00; Stop 09/11/16 at 08:59 Sodium Chloride (NS 500 ml Inj) 500 ml @ 30 mls/hr [id number] PRN IV SEE LABEL COMMENTS; Start 09/08/16 at 09:00; Stop 09/11/16 at 08:59 Metoprolol Tartrate (Lopressor) 25 mg DIRECTOR CLINICAL DATA PRN PO SEE LABEL COMMENTS; Start 09/08/16 at 09:00; Stop 09/11/16 at 08:59 Povidone Iodine (Betadine 5% Antisepsis Kit) 1 applic DIRECTOR CLINICAL DATA PRN EACH NARE SEE LABEL COMMENTS; Start 09/08/16 at 09:00; Stop 09/11/16 at 08:59 Chlorhexidine Gluconate (Chlorhexidine 2% Cloth) 3 pack DIRECTOR CLINICAL DATA PRN TOPICAL SEE LABEL COMMENTS; Start 09/08/16 at 09:00; Stop 09/11/16 at 08:59 Insulin Human Regular (NovoLIN R INJ) See Protocol Table ... DIRECTOR CLINICAL DATA PRN SQ SEE PROTOCOL TABLE; Start 09/08/16 at 09:00; Stop 09/11/16 at 08:59 Acetaminophen/ Hydrocodone Bitart (Seffner 7.5-325 Mg) 1 tab Q3H PRN PO PAIN SCALE 4 TO 10 Last administered on 09/09/16 13:26; Start 09/09/16 at 06:45; Stop 09/09/16 at 16:07; Status DC Oxycodone/ Acetaminophen (Percocet 10-325 Mg) 1 tab Q4H PRN PO PAIN 4-10 Last administered on 09/10/16 11:08; Start 09/09/16 at 17:00 Date of Insertion: Aug 30, 2016 Line: Central Venous Catheter Side: Right Location: Internal, Jugular A/P Assessment and Plan A/P s/p Septic Shock - vibrio Right lower extremity necrotizing fasciitis Lactic acid acidosis-resolved -s/p I/D of the right leg and wound vac placement -s/p Irrigation and debridement of right leg with excisional debridement, closure of right leg fasciotomy wound, application of wound VAC dressing on 09/05 -s/p Irrigation and debridement of right leg, closure of 8 cm of wound, application wound VAC dressing on 09/08/16 -plan for repeated I/D and wound vac change on Monday -continue antibiotics per ID -continue with pain control- THEATER MANAGER was discontinued and started on po meds -will monitor and adjust the pain regimen accordingly. Infectious disease and ortho following Chronic tobacco use, currently using nicotine with vaporizer -Incentive spirometry every hour while awake --Tobacco sensation will be encouraged s/p Septic Shock-resolved Echocardiogram 09/12 - EF is 55-60%. No regional wall motion abnormality. Hepatitis C She does not know her genotype for hepatitis C but states her viral load was undetectable last check 6 months ago. f/u as outpatient Acute kidney injury-resolved Monitor renal function. PROPHYLAXIS DVT prevention with Sq Lovenox GI protection with Protonix CODE STATUS Full code Joel Carr MD Sep 10, 2016 12:38
[2016-09-10] MEDS: ENOXAPARIN SODIUM 40 MG/0.4 ML SYRINGE SQ SCH (13:04)
[2016-09-10] MEDS: PCA - TOTAL MG DILAUDID DELIVERED PER SHIFT OTHER SCH ×2 (14:00→19:45)
[2016-09-10 16:30] VITALS: BP 126/73; PULSE 72; RESP 16; TEMP 97.5; O2SAT 97
[2016-09-10 20:00] VITALS: BP 130/83; PULSE 70; RESP 17; TEMP 97.9; O2SAT 96
[2016-09-10] MEDS: MELATONIN 5 MG TAB PO PRN (22:57)
[2016-09-10 23:20] VITALS: BP 107/60; PULSE 52; RESP 16; TEMP 97.6; O2SAT 99
[2016-09-11] MEDS: PCA - TOTAL MG DILAUDID DELIVERED PER SHIFT OTHER SCH ×3 (04:49→22:00)
[2016-09-11] MEDS: oxyCODONE/ACETAMINOPHEN 10 MG/325 MG TAB PO PRN ×4 (05:48→20:59)
[2016-09-11] MEDS: DOXYCYCLINE INJ 100 MG in SODIUM CHLORIDE 0.9% INJ 100 ML IV SCH ×2 (05:49→16:41)
[2016-09-11] MEDS: LACTATED RINGER'S 1000 ML INJ 1,000 ML IV SCH ×4 (06:04→18:30)
[2016-09-11] MEDS: PANTOPRAZOLE SOD 40 MG DELAYED RELEASE TAB PO SCH (07:34)
[2016-09-11] MEDS: cefTAZidime INJ 2,000 MG in SODIUM CHLORIDE 0.9% INJ 100 ML IV SCH ×2 (07:34→16:40)
[2016-09-11] MEDS: CIPROFLOXACIN 400 MG PREMIX 200 ML IV SCH ×2 (07:34→21:00)
[2016-09-11] MEDS: HYDROmorphone HCL PF 1 MG/ML VIAL IV PUSH PRN ×4 (07:35→22:44)
[2016-09-11] MEDS: DOCUSATE SODIUM 50 MG/SENNA 8.6 MG TAB PO SCH ×2 (07:50→21:00)
[2016-09-11] MEDS: LACTULOSE SYRUP 20 GM/30 ML CUP PO SCH ×2 (07:50→21:00)
[2016-09-11] MEDS: POLYETHYLENE GLYCOL 17 GM PKG PO SCH ×2 (07:50→21:00)
[2016-09-11] MEDS: BACITRACIN TOP OINT 15 GM TUBE TOPICAL SCH ×2 (07:51→21:00)
[2016-09-11] MEDS: BISACODYL 10 MG SUPP RECTAL SCH (07:51)
[2016-09-11 08:00] VITALS: BP 110/63; PULSE 52; RESP 18; TEMP 97.3; O2SAT 97
--- NOTE | 2016-09-11 09:53 | PD.ORT.PN ---
Subjective Post Op Day #: 2 Subjective Remarks Pt sitting upright in bed, dressed and very pleasant. Admits right lower extremity pain is controlled at this time. Augustine rewrapped at bedside. No new complaints. Objective Vitals Vital Signs Date Time Temp Pulse Resp B/P Pulse Ox O2 Delivery O2 Flow Rate FiO2 09/11/16 08:05 18 09/11/16 08:00 97.3 52 18 110/63 97 09/10/16 23:20 97.6 52 16 107/60 99 09/10/16 20:00 97.9 70 17 130/83 96 09/10/16 16:30 97.5 72 16 126/73 97 09/10/16 12:08 18 09/10/16 12:00 97.2 59 16 107/66 98 I/O 09/10/16 09/10/16 09/10/16 09/11/16 09/11/16 09/11/16 07:00 15:00 23:00 07:00 15:00 23:00 Intake Total 240 ml 480 ml 960 ml 240 ml Output Total 0 ml 5 ml 0 ml Balance 240 ml 480 ml 955 ml 240 ml Intake Oral 240 ml 480 ml 960 ml 240 ml Drainage Total 0 ml 5 ml 0 ml # Voids 5 5 5 3 # Bowel Movements 0 0 0 0 Result Diagram: 09/10/16 0615 09/10/16 0615 Imaging Last Impressions Chest X-Ray 08/30/16 1145 Signed Impressions: Service Date/Time: Tuesday, August 30, 2016 11:52 - CONCLUSION: Right jugular line as above. No evidence of pneumothorax. Buck Garza MD Lower Extremity MRI 08/30/16 0000 Signed Impressions: Service Date/Time: Tuesday, August 30, 2016 20:23 - CONCLUSION: Edema within the deep subcutaneous fat abutting the muscular compartments. Edema within the muscular compartments is not seen. Early compartment syndrome cannot be totally ruled out with . Evan Vargas MD Procedures s/p I&D and vac application Objective Remarks RLE: +swelling and erythema of lower leg - improving. vac present with good seal. NVI. no evidence of necrosis Assessment & Plan Ortho Post Op Day #: 2 Problem List: (1) Vibrio (2) Septic shock (3) Leukocytosis (4) Sepsis (5) Cellulitis of leg, right Assessment and Plan 1) Right Leg vibrio infection s/p I&D and vac application #5 - POD 2 -NWB -maintain vac at all time -infectious disease for IV Abx -plan for repeat I&D and vac change Monday AM Nothing by mouth after midnight Monday night Discontinue RICE DRIER and use oral pain medications Becca Burgos Sep 11, 2016 09:53
[2016-09-11] MEDS: ENOXAPARIN SODIUM 40 MG/0.4 ML SYRINGE SQ SCH (11:41)
--- NOTE | 2016-09-11 11:57 | HHI.PR ---
Objective Vital Signs Date Time Temp Pulse Resp B/P Pulse Ox O2 Delivery O2 Flow Rate FiO2 09/11/16 08:05 18 09/11/16 08:00 97.3 52 18 110/63 97 09/10/16 23:20 97.6 52 16 107/60 99 09/10/16 20:00 97.9 70 17 130/83 96 09/10/16 16:30 97.5 72 16 126/73 97 09/10/16 12:08 18 09/10/16 12:00 97.2 59 16 107/66 98 I/O 09/10/16 09/10/16 09/10/16 09/11/16 09/11/16 09/11/16 07:00 15:00 23:00 07:00 15:00 23:00 Intake Total 240 ml 480 ml 960 ml 240 ml Output Total 0 ml 5 ml 0 ml Balance 240 ml 480 ml 955 ml 240 ml Intake Oral 240 ml 480 ml 960 ml 240 ml Drainage Total 0 ml 5 ml 0 ml # Voids 5 5 5 3 # Bowel Movements 0 0 0 0 Result Diagram: 09/10/16 0615 09/10/16 0615 A/P Problem List: (1) Vibrio ICD Code: A00.9 (2) Cellulitis of leg, right ICD Code: L03.115 Assessment and Plan Assessment and Plan 30-year-old female who was admitted with septic shock and necrotizing fasciitis secondary to vibrio. Repeat debridement and possible skin grafting planned for tomorrow. Septic Shock - vibrio Right lower extremity necrotizing fasciitis Lactic acid acidosis Acute kidney injury secondary to septic shock Sepsis, acute kidney injury, and lactic acidosis resolved Continued debridement and surgery is being performed for areas of necrotizing fasciitis Continue as needed pain treatments Infectious disease doctor following Continue ciprofloxacin, ceftazidime, and doxycycline Plan for surgery tomorrow Recent surgery history: -s/p Irrigation and debridement of right leg with excisional debridement, closure of right leg fasciotomy wound, application of wound VAC dressing on 09/05 -s/p Irrigation and debridement of right leg, closure of 8 cm of wound, application wound VAC dressing on 09/08/16 Chronic tobacco use, currently using nicotine with vaporizer Patient counseled to quit Patient supplementing with nicotine vaporizer Hepatitis C standard precautions f/u as outpatient DVT prophylaxis Lovenox CODE STATUS Full code Merritt Kuo MD Sep 11, 2016 11:57 am
[2016-09-11 12:00] VITALS: BP 109/72; PULSE 65; RESP 18; TEMP 97.5; O2SAT 100
[2016-09-11 16:00] VITALS: BP 107/64; PULSE 87; RESP 18; TEMP 96.5; O2SAT 96
[2016-09-11 20:00] VITALS: BP 111/77; PULSE 67; RESP 16; TEMP 97.9; O2SAT 97
[2016-09-12] VITALS (8 sets, daily range): BP systolic 94–113; BP diastolic 49–69; PULSE 47–65; RESP 16–19; TEMP 95.8–98; O2SAT 97–100
[2016-09-12] MEDS: cefTAZidime INJ 2,000 MG in SODIUM CHLORIDE 0.9% INJ 100 ML IV SCH ×4 (01:13→17:22)
[2016-09-12] MEDS: oxyCODONE/ACETAMINOPHEN 10 MG/325 MG TAB PO PRN ×2 (01:14→05:27)
[2016-09-12] MEDS: HYDROmorphone HCL PF 1 MG/ML VIAL IV PUSH PRN ×2 (03:38→06:43)
[2016-09-12] MEDS: DOXYCYCLINE INJ 100 MG in SODIUM CHLORIDE 0.9% INJ 100 ML IV SCH ×2 (05:27→18:00)
[2016-09-12 05:33] LABS: AUTOMATED NEUTROPHIL # 1.7 TH/MM3 (1.8-7.7); BASOPHIL % 0.2 % (0.0-2.0); EOSINOPHIL # 0.2 TH/MM3 (0-0.4); EOSINOPHIL % 3.7 % (0.0-4.0); HEMATOCRIT 31.5 % (35.0-46.0); HEMO FLAGS DIFF FINAL; LYMPH % 52.4 % (9.0-44.0); LYMPHOCYTE # 2.7 TH/MM3 (1.0-4.8); MEAN CELL VOLUME 90.3 FL (80.0-100.0); MEAN CORPUSCULAR HEMOGLOBIN 30.1 PG (27.0-34.0); MEAN CORPUSCULAR HGB CONC 33.4 % (32.0-36.0); MONO % 10.2 % (0.0-8.0); NEUT % 33.5 % (16.0-70.0); PLATELET COUNT 387 TH/MM3 (150-450); RED BLOOD COUNT 3.49 MIL/MM3 (4.00-5.30); RED CELL DISTRIBUTION WIDTH 14.3 % (11.6-17.2); WHITE BLOOD COUNT 5.2 TH/MM3 (4.0-11.0)
[2016-09-12] MEDS: PCA - TOTAL MG DILAUDID DELIVERED PER SHIFT OTHER SCH ×3 (06:00→22:00)
[2016-09-12 06:02] LABS: ANION GAP 4 MEQ/L (5-15); AST (GOT) 24 U/L (15-37); BLOOD UREA NITROGEN 4 MG/DL (7-18); CHLORIDE 103 MEQ/L (98-107); GLOMERULAR FILTRATION RATE 147 ML/MIN (>89); POTASSIUM 3.5 MEQ/L (3.5-5.1); SODIUM (NA) 138 MEQ/L (136-145)
[2016-09-12 06:03] LABS: ALT (GPT) 28 U/L (10-53)
[2016-09-12 06:05] LABS: ALKALINE PHOSPHATASE 85 U/L (45-117); TOTAL BILIRUBIN ADULT 0.7 MG/DL (0.2-1.0)
--- NOTE | 2016-09-12 06:43 | PD.ORT.PN ---
Subjective Subjective Remarks Pain controlled no new complaints Objective Vitals Vital Signs Date Time Temp Pulse Resp B/P Pulse Ox O2 Delivery O2 Flow Rate FiO2 09/12/16 05:15 97.2 47 16 100/49 97 09/12/16 00:10 97.0 65 16 107/56 99 09/11/16 20:00 97.9 67 16 111/77 97 09/11/16 17:41 18 09/11/16 16:25 18 09/11/16 16:00 96.5 87 18 107/64 96 09/11/16 12:00 97.5 65 18 109/72 100 09/11/16 08:00 97.3 52 18 110/63 97 I/O 09/11/16 09/11/16 09/11/16 09/12/16 09/12/16 09/12/16 06:59 14:59 22:59 06:59 14:59 22:59 Intake Total 240 ml 720 ml 1020 ml Output Total 0 ml 0 ml Balance 240 ml 720 ml 1020 ml Intake Oral 240 ml 720 ml 1020 ml Drainage Total 0 ml 0 ml # Voids 3 3 4 # Bowel Movements 0 1 2 Result Diagram: 09/12/16 0515 09/12/16 0515 Other Results Laboratory Tests Test 09/12/16 05:15 Prothrombin Time 11.0 SEC (9.8-11.6) Prothromb Time International 1.0 RATIO Ratio Imaging Last Impressions Chest X-Ray 08/30/16 1145 Signed Impressions: Service Date/Time: Tuesday, August 30, 2016 11:52 - CONCLUSION: Right jugular line as above. No evidence of pneumothorax. Buck Garza MD Lower Extremity MRI 08/30/16 0000 Signed Impressions: Service Date/Time: Tuesday, August 30, 2016 20:23 - CONCLUSION: Edema within the deep subcutaneous fat abutting the muscular compartments. Edema within the muscular compartments is not seen. Early compartment syndrome cannot be totally ruled out with MR. Evan Vargas MD Procedures s/p I&D and vac application Objective Remarks RLE: +swelling and erythema of lower leg - improving. vac present with good seal. NVI. no evidence of necrosis Assessment & Plan Problem List: (1) Vibrio (2) Septic shock (3) Leukocytosis (4) Sepsis (5) Cellulitis of leg, right Assessment and Plan 1) Right Leg vibrio infection s/p I&D and vac application #5 - POD 5 -NWB -maintain vac at all time -infectious disease for IV Abx -plan for repeat I&D and vac change today Nothing by mouth sign consent Seth German Jr. Sep 12, 2016 06:43
[2016-09-12] MEDS ORDERED: ACETAMINOPHEN 1000 MG/100 ML VIAL IV ONE (06:59)
[2016-09-12] MEDS ORDERED: GENTAMICIN SULFATE 80 MG/2 ML VIAL ONE (07:05)
[2016-09-12] MEDS ORDERED: MINERAL OIL 10 ML VIAL ONE (07:36)
[2016-09-12] MEDS ORDERED: LIDOCAINE 2% JELLY 30 ML TUBE ONE (07:36)
--- NOTE | 2016-09-12 08:01 | PD.OP ---
cc: Dirk Grey MD Operative Report Date of Surgery: Sep 12, 2016 Preoperative Diagnosis: right calf open wound Postoperative Diagnosis: Procedure: Irrigation and debridement right calf, split-thickness skin grafting right calf Anesthesia: Gen. Surgeon: Dirk Grey Tandem Mill Roller(s): ROSALIE Bergman PA-C The surgical procedure was assisted by my physician fundraising assistant. My P.A. presence was necessary throughout this case for the manipulation and positioning of the surgical extremity. My P.A. was assisting me throughout the duration of this procedure. The skill set of a physician fundraising assistant was medically necessary to complete this procedure. During the surgical case the hand frame surgical elastic knitter was working at the back table and the physician fundraising assistant was directly assisting me. Operation and Findings: Patient brought to operating room and given IV sedation and general anesthesia. Timeout procedure was performed. IV antibiotics were administered. The right leg was prepped with alcohol followed by Hibiclens and draped in usual sterile fashion. Procedure began with irrigation and debridement of the open wound. Skin subcutaneous tissue and fascia were sharply debrided. Overall the wound was healthy. A excisional debridement was performed. Muscle appeared be healthy and viable. There was significant granulation tissue forming. Wound was now thoroughly irrigated with sterile saline. Next was turned to skin grafting. Using the Mauricio dermatome set at 0.015 skin graft was obtained from the thigh. Skin graft was now meshed at a ratio of 1- 1.5. The skin graft was now placed over the open wound. Skin graft was stapled into position. The open wound was completely covered. Skin graft was now covered with Xeroform. A VAC dressing was cut to fit over the wound. VAC dressing was sealed appropriately. A compressive dressing was applied. VAC dressing was set on continuous. Patient was awakened and transferred to recovery in stable condition. Dirk Grey MD Sep 12, 2016 08:01
[2016-09-12] MEDS ORDERED: DO NOT ADM ANY ANTICOAGULANT DRUGS PRN (08:20)
[2016-09-12] MEDS ORDERED: *morphine SULFATE 8 MG/ML PERIprocedure ONLY ONE ×2 (08:25→08:35)
[2016-09-12] MEDS: DOCUSATE SODIUM 50 MG/SENNA 8.6 MG TAB PO SCH ×2 (09:00→19:44)
[2016-09-12] MEDS: LACTULOSE SYRUP 20 GM/30 ML CUP PO SCH ×2 (09:00→19:44)
[2016-09-12] MEDS: POLYETHYLENE GLYCOL 17 GM PKG PO SCH ×2 (09:00→19:44)
[2016-09-12] MEDS: BISACODYL 10 MG SUPP RECTAL SCH (09:00)
[2016-09-12] MEDS: BACITRACIN TOP OINT 15 GM TUBE TOPICAL SCH ×2 (09:00→19:44)
[2016-09-12] MEDS: LACTATED RINGER'S 1000 ML INJ 1,000 ML IV SCH ×3 (09:05→19:44)
[2016-09-12] MEDS: HYDROmorphone HCL PCA 6 MG/30 ML IV SCH ×2 (09:05→22:54)
[2016-09-12] MEDS: PANTOPRAZOLE SOD 40 MG DELAYED RELEASE TAB PO SCH (09:44)
[2016-09-12] MEDS: CIPROFLOXACIN 400 MG PREMIX 200 ML IV SCH ×2 (09:46→19:43)
[2016-09-12] MEDS ORDERED: MIDAZOLAM HCL 2 MG/2 ML VIAL ONE (10:05)
[2016-09-12] MEDS ORDERED: fentaNYL CITRATE 250 MCG/5 ML AMP ONE (10:05)
[2016-09-12] MEDS ORDERED: ONDANSETRON HCL 4 MG/2 ML VIAL IV PUSH ONE (12:00)
[2016-09-12] MEDS ORDERED: PROPOFOL 200 MG/20 ML AMP IV ONE (12:00)
[2016-09-12] MEDS: ENOXAPARIN SODIUM 40 MG/0.4 ML SYRINGE SQ SCH (13:00)
--- NOTE | 2016-09-12 13:51 | HHI.PR ---
Subjective Remarks Follow up vibrio of right leg. Patient seen and examined, lying in bed awake, post-op skin graft today. Patient states pain is the worst its been after this surgery today since she's been here. HOME PARAPROFESSIONAL pump continued with some relief. Has been tolerating PO intake. Denies any recent fever, chills, cough, sore throat, abdominal pain, vomiting or diarrhea. Has been ambulating well around the room and with PT. Objective Vitals Vital Signs Date Time Temp Pulse Resp B/P Pulse Ox O2 Delivery O2 Flow Rate FiO2 09/12/16 12:41 97 09/12/16 09:27 95.8 58 18 110/66 98 09/12/16 09:15 97.7 51 12 103/64 100 Nasal Cannula 2 09/12/16 09:05 15 09/12/16 09:00 57 22 106/57 100 Nasal Cannula 2 09/12/16 08:45 53 13 97/54 100 Nasal Cannula 2 09/12/16 08:30 65 13 108/60 99 Nasal Cannula 2 09/12/16 08:25 91 Nasal Cannula 2 09/12/16 08:20 97.7 84 12 108/63 98 Room Air 09/12/16 05:15 97.2 47 16 100/49 97 09/12/16 00:10 97.0 65 16 107/56 99 09/11/16 20:00 97.9 67 16 111/77 97 09/11/16 17:41 18 09/11/16 16:25 18 09/11/16 16:00 96.5 87 18 107/64 96 I/O 09/11/16 09/11/16 09/11/16 09/12/16 09/12/16 09/12/16 07:00 15:00 23:00 07:00 15:00 23:00 Intake Total 240 ml 720 ml 1020 ml 480 ml 300 ml Output Total 0 ml 0 ml 5 ml Balance 240 ml 720 ml 1020 ml 480 ml 295 ml Intake Oral 240 ml 720 ml 1020 ml 480 ml 0 ml IV Total 100 ml Other 200 ml Drainage Total 0 ml 0 ml Estimated Blood Loss 5 ml # Voids 3 3 4 4 0 # Bowel Movements 0 1 2 0 Result Diagram: 09/12/16 0515 09/12/16 0515 Imaging Last Impressions Chest X-Ray 08/30/16 1145 Signed Impressions: Service Date/Time: Tuesday, August 30, 2016 11:52 - CONCLUSION: Right jugular line as above. No evidence of pneumothorax. Buck Garza MD Lower Extremity MRI 08/30/16 0000 Signed Impressions: Service Date/Time: Tuesday, August 30, 2016 20:23 - CONCLUSION: Edema within the deep subcutaneous fat abutting the muscular compartments. Edema within the muscular compartments is not seen. Early compartment syndrome cannot be totally ruled out with MR. Evan Vargas MD Objective Remarks GENERAL: Well-nourished, well-developed female patient, lying comfortably in bed post op skin graft. SKIN: Warm and dry. Right lower extremity dressing and zhanna bandage in place, clean d/i. Wound vac in place and to suction. HEAD: Normocephalic. EYES: No scleral icterus. No injection or drainage. PERRL. NECK: Supple, trachea midline. No JVD or lymphadenopathy. CARDIOVASCULAR: Regular rate and rhythm. No murmur appreciated. RESPIRATORY: Breath sounds equal bilaterally. No accessory muscle use. GASTROINTESTINAL: Abdomen soft, non-tender, nondistended. EXTREMITIES: No cyanosis, or edema. NEUROLOGICAL: Awake, alert, and oriented x 3. Procedures I/D of the right leg/ wound vac placement central line placement Vascular Central Line Catheter: Yes Date of Insertion: Aug 30, 2016 Line: Central Venous Catheter Side: Right Location: Internal, Jugular A/P Problem List: (1) Sepsis ICD Code: A41.9 Status: Acute (2) Cellulitis of leg, right ICD Code: L03.115 Status: Acute (3) Vibrio ICD Code: A00.9 Status: Acute Assessment and Plan 30-year-old female who was admitted with septic shock and necrotizing fasciitis secondary to vibrio. Repeat debridement and possible skin grafting planned for tomorrow. Septic Shock - vibrio Right lower extremity necrotizing fasciitis Lactic acid acidosis Acute kidney injury secondary to septic shock Sepsis, acute kidney injury, and lactic acidosis resolved Continued debridement and surgery is being performed for areas of necrotizing fasciitis Continue as needed pain treatments Infectious disease doctor following, appreciate recommendations regarding care home antibiotics. Please advise regarding PICC line and dc of central line. Continue ciprofloxacin, ceftazidime, and doxycycline Recent surgery history: -s/p Irrigation and debridement of right leg with excisional debridement, closure of right leg fasciotomy wound, application of wound VAC dressing on 09/05 -s/p Irrigation and debridement of right leg, closure of 8 cm of wound, application wound VAC dressing on 09/08/16 -s/p Irrigation and debridement right calf, split-thickness skin grafting right calf 09/12/16. Chronic tobacco use, currently using nicotine with vaporizer Patient counseled to quit Patient supplementing with nicotine vaporizer Hepatitis C standard precautions f/u as outpatient DVT prophylaxis Lovenox CODE STATUS Full code Discharge Planning CM assisting. Awaiting ID recommendations for terminal makeup operator antibiotics. Problem Qualifiers (1) Sepsis: Qualified Code: A41.9 - Sepsis, due to unspecified organism Acacia Rios Sep 12, 2016 13:51
[2016-09-13] VITALS (8 sets, daily range): BP systolic 95–112; BP diastolic 42–73; PULSE 50–100; RESP 16–18; TEMP 97–98.2; O2SAT 95–100
[2016-09-13] MEDS: cefTAZidime INJ 2,000 MG in SODIUM CHLORIDE 0.9% INJ 100 ML IV SCH ×3 (00:17→18:46)
[2016-09-13] MEDS: PCA - TOTAL MG DILAUDID DELIVERED PER SHIFT OTHER SCH ×3 (06:00→22:00)
[2016-09-13] MEDS: DOXYCYCLINE INJ 100 MG in SODIUM CHLORIDE 0.9% INJ 100 ML IV SCH ×2 (06:12→18:46)
[2016-09-13 06:17] LABS: MEAN CELL VOLUME 90.2 FL (80.0-100.0); MEAN CORPUSCULAR HEMOGLOBIN 29.9 PG (27.0-34.0); MEAN CORPUSCULAR HGB CONC 33.2 % (32.0-36.0); PLATELET COUNT 408 TH/MM3 (150-450); RED BLOOD COUNT 3.66 MIL/MM3 (4.00-5.30); RED CELL DISTRIBUTION WIDTH 14.2 % (11.6-17.2); REVIEW FLAG FINAL; WHITE BLOOD COUNT 5.5 TH/MM3 (4.0-11.0)
--- NOTE | 2016-09-13 06:31 | PD.ORT.PN ---
Subjective Subjective Remarks POD 1 s/p I&D with skin grafting right leg -doing well. out of bed on own. pain controlled. Objective Vitals Vital Signs Date Time Temp Pulse Resp B/P Pulse Ox O2 Delivery O2 Flow Rate FiO2 09/13/16 06:00 18 09/13/16 04:00 97.7 52 16 96/42 100 09/13/16 00:00 97.7 50 16 95/51 100 09/12/16 22:54 17 09/12/16 22:00 17 09/12/16 20:00 98.0 54 17 113/69 100 09/12/16 17:56 99 21 09/12/16 16:00 97.5 57 19 94/57 99 09/12/16 12:41 97 09/12/16 12:00 96.8 50 18 95/59 100 09/12/16 09:27 95.8 58 18 110/66 98 09/12/16 09:15 97.7 51 12 103/64 100 Nasal Cannula 2 09/12/16 09:05 15 09/12/16 09:00 57 22 106/57 100 Nasal Cannula 2 09/12/16 08:45 53 13 97/54 100 Nasal Cannula 2 09/12/16 08:30 65 13 108/60 99 Nasal Cannula 2 09/12/16 08:25 91 Nasal Cannula 2 09/12/16 08:20 97.7 84 12 108/63 98 Room Air I/O 09/12/16 09/12/16 09/12/16 09/13/16 09/13/16 09/13/16 07:00 15:00 23:00 07:00 15:00 23:00 Intake Total 480 ml 300 ml 2164 ml 480 ml Output Total 5 ml 0 ml Balance 480 ml 295 ml 2164 ml 480 ml Intake Oral 480 ml 0 ml 1200 ml 480 ml IV Total 100 ml 964 ml Other 200 ml Drainage Total 0 ml Estimated Blood Loss 5 ml # Voids 4 0 9 2 # Bowel Movements 0 1 0 Result Diagram: 09/13/16 0605 09/12/16 0515 Imaging Last Impressions Chest X-Ray 08/30/16 1145 Signed Impressions: Service Date/Time: Tuesday, August 30, 2016 11:52 - CONCLUSION: Right jugular line as above. No evidence of pneumothorax. Buck Garza MD Lower Extremity MRI 08/30/16 0000 Signed Impressions: Service Date/Time: Tuesday, August 30, 2016 20:23 - CONCLUSION: Edema within the deep subcutaneous fat abutting the muscular compartments. Edema within the muscular compartments is not seen. Early compartment syndrome cannot be totally ruled out with . Evan Vargas MD Procedures s/p I&D and vac application Objective Remarks RLE: dressings clean and dry. intact. +vac. good seal. harvest site clean and dry. NVI Assessment & Plan Problem List: (1) Vibrio (2) Septic shock (3) Leukocytosis (4) Sepsis (5) Cellulitis of leg, right Assessment and Plan 1) Right Leg vibrio infection s/p I&D with STSG - POD 1 -WBAT. careful not to overdue it -maintain dressings and vac -vac will remain x 5 days and plan to DC at bedside Monday -will plan for DC home on Monday -Infectious Dz to have Abx arrange for home Irving Beasley Sep 13, 2016 06:31
[2016-09-13 06:52] LABS: BICARBONATE 29.3 MEQ/L (21.0-32.0)
[2016-09-13] MEDS: BACITRACIN TOP OINT 15 GM TUBE TOPICAL SCH ×2 (09:00→20:28)
[2016-09-13] MEDS: LACTULOSE SYRUP 20 GM/30 ML CUP PO SCH ×2 (09:00→20:22)
[2016-09-13] MEDS: BISACODYL 10 MG SUPP RECTAL SCH (09:00)
[2016-09-13] MEDS: CIPROFLOXACIN 400 MG PREMIX 200 ML IV SCH ×2 (09:41→20:22)
[2016-09-13] MEDS: PANTOPRAZOLE SOD 40 MG DELAYED RELEASE TAB PO SCH (09:42)
[2016-09-13] MEDS: DOCUSATE SODIUM 50 MG/SENNA 8.6 MG TAB PO SCH ×2 (09:42→20:23)
[2016-09-13] MEDS: POLYETHYLENE GLYCOL 17 GM PKG PO SCH ×2 (09:43→20:22)
[2016-09-13] MEDS: ENOXAPARIN SODIUM 40 MG/0.4 ML SYRINGE SQ SCH (12:40)
[2016-09-13] MEDS: LACTATED RINGER'S 1000 ML INJ 1,000 ML IV SCH (12:41)
--- NOTE | 2016-09-13 14:04 | HHI.PR ---
Subjective Remarks Follow up vibrio of right leg. Patient seen and examined, sitting up in bed, awake and pleasant. Pain controlled. Denies any new acute complaints overnight. Eating well. 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 Expresses motivation to engage in PT and go home this weekend. Denies any recent fever, chills, cough, shortness of breath, abdominal pain, nausea, vomiting, diarrhea, dysuria. Positive BM. Objective Vitals Vital Signs Date Time Temp Pulse Resp B/P Pulse Ox O2 Delivery O2 Flow Rate FiO2 09/13/16 12:00 97.9 52 18 104/63 100 09/13/16 08:00 98.2 100 18 112/72 98 09/13/16 06:00 18 09/13/16 04:00 97.7 52 16 96/42 100 09/13/16 00:00 97.7 50 16 95/51 100 09/12/16 22:54 17 09/12/16 22:00 17 09/12/16 20:00 98.0 54 17 113/69 100 09/12/16 17:56 99 21 09/12/16 16:00 97.5 57 19 94/57 99 I/O 09/12/16 09/12/16 09/12/16 09/13/16 09/13/16 09/13/16 07:00 15:00 23:00 07:00 15:00 23:00 Intake Total 480 ml 300 ml 2164 ml 1026 ml Output Total 5 ml 0 ml 0 ml Balance 480 ml 295 ml 2164 ml 1026 ml Intake Oral 480 ml 0 ml 1200 ml 480 ml IV Total 100 ml 964 ml 546 ml Other 200 ml Drainage Total 0 ml 0 ml Estimated Blood Loss 5 ml # Voids 4 0 9 2 # Bowel Movements 0 1 0 Result Diagram: 09/13/16 0605 09/13/16 0605 Imaging Last Impressions Chest X-Ray 08/30/16 1145 Signed Impressions: Service Date/Time: Tuesday, August 30, 2016 11:52 - CONCLUSION: Right jugular line as above. No evidence of pneumothorax. Buck Garza MD Lower Extremity MRI 08/30/16 0000 Signed Impressions: Service Date/Time: Tuesday, August 30, 2016 20:23 - CONCLUSION: Edema within the deep subcutaneous fat abutting the muscular compartments. Edema within the muscular compartments is not seen. Early compartment syndrome cannot be totally ruled out with . Evan Vargas MD Objective Remarks GENERAL: Well-nourished, well-developed female patient, lying comfortably in bed post op skin graft. SKIN: Warm and dry. Right lower extremity dressing and zhanna bandage in place, clean d/i. Wound vac in place and to suction. Right IJ CVL in place. HEAD: Normocephalic. EYES: No scleral icterus. No injection or drainage. PERRL. NECK: Supple, trachea midline. No JVD or lymphadenopathy. CARDIOVASCULAR: Regular rate and rhythm. No murmur appreciated. RESPIRATORY: Breath sounds equal bilaterally. No accessory muscle use. GASTROINTESTINAL: Abdomen soft, non-tender, nondistended. EXTREMITIES: No cyanosis, or edema. NEUROLOGICAL: Awake, alert, and oriented x 3. Procedures I/D of the right leg/ wound vac placement central line placement Vascular Central Line Catheter: No Assessment to: Remove Date of Insertion: Aug 30, 2016 Date of Removal: Sep 13, 2016 Line: Central Venous Catheter Side: Right Location: Internal, Jugular A/P Problem List: (1) Sepsis ICD Code: A41.9 Status: Acute (2) Cellulitis of leg, right ICD Code: L03.115 Status: Acute (3) Vibrio ICD Code: A00.9 Status: Acute Assessment and Plan 30-year-old female who was admitted with septic shock and necrotizing fasciitis secondary to vibrio. Septic Shock - vibrio Right lower extremity necrotizing fasciitis Lactic acid acidosis Acute kidney injury secondary to septic shock Sepsis, acute kidney injury, and lactic acidosis resolved Continued debridement and surgery is being performed for areas of necrotizing fasciitis Continue as needed pain treatments Infectious disease doctor following, appreciate recommendations regarding rat exterminator antibiotics. Remove right IJ CVL today. Continue ciprofloxacin, ceftazidime, and doxycycline Recent surgery history: -s/p Irrigation and debridement of right leg with excisional debridement, closure of right leg fasciotomy wound, application of wound VAC dressing on 09/05 -s/p Irrigation and debridement of right leg, closure of 8 cm of wound, application wound VAC dressing on 09/08/16 -s/p Irrigation and debridement right calf, split-thickness skin grafting right calf 09/12/16. Chronic tobacco use, currently using nicotine with vaporizer Patient counseled to quit Patient supplementing with nicotine vaporizer Hepatitis C: standard precautions, f/u as outpatient DVT prophylaxis: Lovenox CODE STATUS: Full code Discharge Planning CM assisting. Last CM note 09/13: PER NOTES, ANTICIPATE D/C MONDAY, WITH ANTIBIOTICS PER I.D. LAST NOTE FROM I.D. STATES THAT PLAN IS FOR IV ABX UNTIL FINAL CLOSURE. CM AVAILABLE. Problem Qualifiers (1) Sepsis: Qualified Code: A41.9 - Sepsis, due to unspecified organism Acacia Rios Sep 13, 2016 14:04
[2016-09-13] MEDS: HYDROmorphone HCL PCA 6 MG/30 ML IV SCH (20:22)
[2016-09-14] MEDS: LACTATED RINGER'S 1000 ML INJ 1,000 ML IV SCH ×3 (00:02→19:56)
[2016-09-14] MEDS: cefTAZidime INJ 2,000 MG in SODIUM CHLORIDE 0.9% INJ 100 ML IV SCH ×2 (00:03→10:23)
[2016-09-14] MEDS: DOXYCYCLINE INJ 100 MG in SODIUM CHLORIDE 0.9% INJ 100 ML IV SCH ×2 (04:59→19:00)
[2016-09-14 05:00] VITALS: BP 104/58; PULSE 62; RESP 16; TEMP 96.4; O2SAT 97
[2016-09-14] MEDS: PCA - TOTAL MG DILAUDID DELIVERED PER SHIFT OTHER SCH (06:00)
[2016-09-14] MEDS: HYDROmorphone HCL PCA 6 MG/30 ML IV SCH (06:33)
--- NOTE | 2016-09-14 06:34 | PD.ORT.PN ---
Subjective Subjective Remarks Pain controlled no new complaints Objective Vitals Vital Signs Date Time Temp Pulse Resp B/P Pulse Ox O2 Delivery O2 Flow Rate FiO2 09/14/16 06:00 18 09/14/16 05:00 96.4 62 16 104/58 97 09/13/16 23:50 97.0 73 16 102/63 97 09/13/16 22:00 17 09/13/16 20:55 17 09/13/16 20:30 98.1 61 16 112/73 95 09/13/16 20:22 18 09/13/16 16:00 97.3 51 18 109/58 100 09/13/16 14:00 16 09/13/16 12:50 98 09/13/16 12:00 97.9 52 18 104/63 100 09/13/16 08:00 98.2 100 18 112/72 98 I/O 09/13/16 09/13/16 09/13/16 09/14/16 09/14/16 09/14/16 07:00 15:00 23:00 07:00 15:00 23:00 Intake Total 1026 ml 1200 ml 1152 ml 600 ml Output Total 0 ml 0 ml 0 ml Balance 1026 ml 1200 ml 1152 ml 600 ml Intake Oral 480 ml 1200 ml 920 ml 600 ml IV Total 546 ml 232 ml Drainage Total 0 ml 0 ml 0 ml # Voids 2 6 4 3 # Bowel Movements 0 1 1 0 Result Diagram: 09/13/16 0605 09/13/16 0605 Imaging Last Impressions Chest X-Ray 08/30/16 1145 Signed Impressions: Service Date/Time: Tuesday, August 30, 2016 11:52 - CONCLUSION: Right jugular line as above. No evidence of pneumothorax. Buck Garza MD Lower Extremity MRI 08/30/16 0000 Signed Impressions: Service Date/Time: Tuesday, August 30, 2016 20:23 - CONCLUSION: Edema within the deep subcutaneous fat abutting the muscular compartments. Edema within the muscular compartments is not seen. Early compartment syndrome cannot be totally ruled out with MR. Evan Vargas MD Procedures s/p I&D and vac application Objective Remarks RLE: dressings clean and dry. intact. +vac. good seal. harvest site clean and dry. NVI Assessment & Plan Problem List: (1) Vibrio (2) Septic shock (3) Leukocytosis (4) Sepsis (5) Cellulitis of leg, right Assessment and Plan 1) Right Leg vibrio infection s/p I&D with STSG - POD 2 -WBAT. careful not to overdue it -maintain dressings and vac -vac will remain x 5 days and plan to DC at bedside Monday -will plan for DC home on Monday -Infectious disease to have Abx arrange for home Follow-up appointment with Dr. Grey or PA in 2 weeks Seth German Jr. Sep 14, 2016 06:34
[2016-09-14 08:00] VITALS: BP 104/61; PULSE 74; RESP 18; TEMP 97.1; O2SAT 98
[2016-09-14] MEDS: POLYETHYLENE GLYCOL 17 GM PKG PO SCH ×3 (09:00→20:29)
[2016-09-14] MEDS: BACITRACIN TOP OINT 15 GM TUBE TOPICAL SCH ×2 (09:00→20:29)
[2016-09-14] MEDS: LACTULOSE SYRUP 20 GM/30 ML CUP PO SCH ×2 (09:00→20:29)
[2016-09-14] MEDS: BISACODYL 10 MG SUPP RECTAL SCH (09:00)
--- NOTE | 2016-09-14 09:22 | HHI.PR ---
Subjective Remarks Follow up vibrio of right leg. Patient seen and examined, family at beside. Patient sitting up in bed, awake and pleasant. Denies any new acute complaints overnight. Pain is lessened. 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 Afebrile. VSS. Objective Vitals Vital Signs Date Time Temp Pulse Resp B/P Pulse Ox O2 Delivery O2 Flow Rate FiO2 09/14/16 08:00 97.1 74 18 104/61 98 09/14/16 07:03 18 09/14/16 06:33 17 09/14/16 06:00 18 09/14/16 05:00 96.4 62 16 104/58 97 09/13/16 23:50 97.0 73 16 102/63 97 09/13/16 22:00 17 09/13/16 20:30 98.1 61 16 112/73 95 09/13/16 20:22 18 09/13/16 16:00 97.3 51 18 109/58 100 09/13/16 14:00 16 09/13/16 12:50 98 09/13/16 12:00 97.9 52 18 104/63 100 I/O 09/13/16 09/13/16 09/13/16 09/14/16 09/14/16 09/14/16 07:00 15:00 23:00 07:00 15:00 23:00 Intake Total 1026 ml 1200 ml 1152 ml 979 ml Output Total 0 ml 0 ml 0 ml 0 ml Balance 1026 ml 1200 ml 1152 ml 979 ml Intake Oral 480 ml 1200 ml 920 ml 600 ml IV Total 546 ml 232 ml 379 ml Drainage Total 0 ml 0 ml 0 ml 0 ml # Voids 2 6 4 3 # Bowel Movements 0 1 1 0 Result Diagram: 09/13/16 0605 09/13/16 0605 Imaging Last Impressions Chest X-Ray 08/30/16 1145 Signed Impressions: Service Date/Time: Tuesday, August 30, 2016 11:52 - CONCLUSION: Right jugular line as above. No evidence of pneumothorax. Buck Garza MD Lower Extremity MRI 08/30/16 0000 Signed Impressions: Service Date/Time: Tuesday, August 30, 2016 20:23 - CONCLUSION: Edema within the deep subcutaneous fat abutting the muscular compartments. Edema within the muscular compartments is not seen. Early compartment syndrome cannot be totally ruled out with . Evan Vargas MD Objective Remarks GENERAL: Well-nourished, well-developed female patient, lying comfortably in bed post op skin graft. SKIN: Warm and dry. Right lower extremity dressing and zhanna bandage in place, clean d/i. Wound vac in place and to suction. Right IJ CVL in place. HEAD: Normocephalic. EYES: No scleral icterus. No injection or drainage. PERRL. NECK: Supple, trachea midline. No JVD or lymphadenopathy. CARDIOVASCULAR: Regular rate and rhythm. No murmur appreciated. RESPIRATORY: Breath sounds equal bilaterally. No accessory muscle use. GASTROINTESTINAL: Abdomen soft, non-tender, nondistended. EXTREMITIES: No cyanosis, or edema. NEUROLOGICAL: Awake, alert, and oriented x 3. Procedures I/D of the right leg/ wound vac placement central line placement Date of Insertion: Aug 30, 2016 Date of Removal: Sep 13, 2016 A/P Problem List: (1) Sepsis ICD Code: A41.9 Status: Acute (2) Cellulitis of leg, right ICD Code: L03.115 Status: Acute (3) Vibrio ICD Code: A00.9 Status: Acute Assessment and Plan 30-year-old female who was admitted with septic shock and necrotizing fasciitis secondary to vibrio. Septic Shock - vibrio Right lower extremity necrotizing fasciitis Lactic acid acidosis Acute kidney injury secondary to septic shock Sepsis, acute kidney injury, and lactic acidosis resolved Continued debridement and surgery is being performed for areas of necrotizing fasciitis Continue as needed pain treatments Infectious disease doctor following, appreciate recommendations regarding senior living antibiotics. CVL dcd'd. 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 Continue ciprofloxacin, ceftazidime, and doxycycline. Recent surgery history: -s/p Irrigation and debridement of right leg with excisional debridement, closure of right leg fasciotomy wound, application of wound VAC dressing on 09/05 -s/p Irrigation and debridement of right leg, closure of 8 cm of wound, application wound VAC dressing on 09/08/16 -s/p Irrigation and debridement right calf, split-thickness skin grafting right calf 09/12/16. Chronic tobacco use, currently using nicotine with vaporizer Patient counseled to quit Patient supplementing with nicotine vaporizer Hepatitis C: standard precautions, f/u as outpatient DVT prophylaxis: Lovenox CODE STATUS: Full code Discharge Planning CM assisting. Last CM note 09/13: PER NOTES, ANTICIPATE D/C MONDAY, WITH ANTIBIOTICS PER I.D. LAST NOTE FROM I.D. STATES THAT PLAN IS FOR IV ABX UNTIL FINAL CLOSURE. CM AVAILABLE. Problem Qualifiers (1) Sepsis: Qualified Code: A41.9 - Sepsis, due to unspecified organism Acacia Rios Sep 14, 2016 09:22
[2016-09-14] MEDS: CIPROFLOXACIN 400 MG PREMIX 200 ML IV SCH (10:22)
[2016-09-14] MEDS: PANTOPRAZOLE SOD 40 MG DELAYED RELEASE TAB PO SCH (10:26)
[2016-09-14] MEDS: oxyCODONE/ACETAMINOPHEN 10 MG/325 MG TAB PO PRN ×2 (10:27→19:03)
[2016-09-14] MEDS: DOCUSATE SODIUM 50 MG/SENNA 8.6 MG TAB PO SCH ×2 (10:28→20:29)
[2016-09-14 12:00] VITALS: BP 86/46; PULSE 57; RESP 18; TEMP 97.4; O2SAT 98
[2016-09-14] MEDS: ENOXAPARIN SODIUM 40 MG/0.4 ML SYRINGE SQ SCH (13:50)
--- NOTE | 2016-09-14 14:46 | HHI.IDPN ---
Note Infectious Disease Note Patient complains of feeling tired. Denies chills. Afebrile. Post fasciotomy at the r. leg 09/01. Debridement again 09/03. Debridement and closure of r. fasciotomy anterior r leg wound one of two site . Debridement and wound closure anterior r.leg upper wound 09/08. posterior r. leg area partially closed with wound vac in place. Skin graft 09/12. Patient was getting onto a jet-ski and she fell onto a pilon which had barnacle and shell on it and she scraped and cut her anterior tibia area on the right leg in a couple places. The patient presented to the emergency department two days later with complaint of swelling of her right lower extremity. She was noted to have tachycardia with her heart rate of 105 and blood pressure of 61/48 and a white count was elevated at 15.5, and lactic acid level 3.1, platelet count of 147. PAST MEDICAL HISTORY Hepatitis C, Crohn's disease, ADD. ANTIBIOTICS: 1. Ceftazidime. 2. Doxycycline. 3. Cipro. OBJECTIVE: Vital Signs Date Time Temp Pulse Resp B/P Pulse Ox O2 Delivery O2 Flow Rate FiO2 09/14/16 12:00 97.4 57 18 86/46 98 09/14/16 11:27 15 09/14/16 08:00 97.1 74 18 104/61 98 09/14/16 07:03 18 09/14/16 06:33 17 09/14/16 06:00 18 09/14/16 05:00 96.4 62 16 104/58 97 09/13/16 23:50 97.0 73 16 102/63 97 09/13/16 22:00 17 09/13/16 20:30 98.1 61 16 112/73 95 09/13/16 20:22 18 09/13/16 16:00 97.3 51 18 109/58 100 09/13/16 09/13/16 09/14/16 14:59 22:59 06:59 Intake Total 1200 ml 1152 ml 979 ml Output Total 0 ml 0 ml 0 ml Balance 1200 ml 1152 ml 979 ml Intake Oral 1200 ml 920 ml 600 ml IV Total 232 ml 379 ml Drainage Total 0 ml 0 ml 0 ml # Voids 6 4 3 # Bowel Movements 1 1 0 Laboratory Tests Test 09/13/16 06:05 White Blood Count 5.5 TH/MM3 Red Blood Count 3.66 MIL/MM3 Hemoglobin 11.0 GM/DL Hematocrit 33.0 % Mean Corpuscular Volume 90.2 FL Mean Corpuscular Hemoglobin 29.9 PG Mean Corpuscular Hemoglobin 33.2 % Concent Red Cell Distribution Width 14.2 % Platelet Count 408 TH/MM3 Mean Platelet Volume 8.5 FL Laboratory Tests Test 09/13/16 06:05 Sodium Level 137 MEQ/L Potassium Level 4.0 MEQ/L Chloride Level 103 MEQ/L Carbon Dioxide Level 29.3 MEQ/L Anion Gap 5 MEQ/L Blood Urea Nitrogen 4 MG/DL Creatinine 0.47 MG/DL Estimat Glomerular Filtration 158 ML/MIN Rate Random Glucose 95 MG/DL Calcium Level 8.5 MG/DL PHYSICAL EXAMINATION GENERAL: No acute distress. HEENT: No icterus. No thrush. NECK: Supple without adenopathy. LUNGS: Breath sounds clear. HEART: Regular S1-S2. EXTREMITIES: The right leg swelling has decreased. Wound vac r leg with scant drainage. Dry laceration at the right great toe and two dry lacerations at the 2n and 3rd fingers left hand palmar aspect. NEUROLOGIC: No gross focal findings. IMPRESSION 1. Severe necrotizing cellulitis of the right leg due to vibrio in patient who had contact with shells in salt water environment and subsequently developed a lacerations. Septic shock on admission. Post fasciotomy R. leg. Post debridement. 2. Septic shock, treated. Improving. RECOMMENDATIONS 1. Stop Ceftazidime. 2. Stop Ciprofloxacin. 3. Continue Doxycycline IV for another couple of days then switch to PO 100 mg bid x 1 more week. I will sign off now please reconsult if further input is needed. Tyrone Reed MD Sep 14, 2016 14:46
[2016-09-14 16:00] VITALS: BP 99/55; PULSE 50; RESP 18; TEMP 96.6; O2SAT 97
[2016-09-14 20:40] VITALS: BP 125/56; PULSE 63; RESP 16; TEMP 97.6; O2SAT 99
[2016-09-14] MEDS: HYDROmorphone HCL PF 1 MG/ML VIAL IV PUSH PRN (22:55)
[2016-09-14 23:55] VITALS: BP 112/56; PULSE 61; RESP 17; TEMP 96.8; O2SAT 98
[2016-09-15] MEDS: oxyCODONE/ACETAMINOPHEN 10 MG/325 MG TAB PO PRN ×5 (00:14→20:55)
[2016-09-15] MEDS: LACTATED RINGER'S 1000 ML INJ 1,000 ML IV SCH ×2 (05:56→09:00)
[2016-09-15] MEDS: DOXYCYCLINE INJ 100 MG in SODIUM CHLORIDE 0.9% INJ 100 ML IV SCH ×2 (06:25→16:44)
--- NOTE | 2016-09-15 06:28 | PD.ORT.PN ---
Subjective Subjective Remarks Pain controlled no new complaints Objective Vitals Vital Signs Date Time Temp Pulse Resp B/P Pulse Ox O2 Delivery O2 Flow Rate FiO2 09/14/16 23:55 96.8 61 17 112/56 98 09/14/16 20:40 97.6 63 16 125/56 99 09/14/16 16:00 96.6 50 18 99/55 97 09/14/16 12:00 97.4 57 18 86/46 98 09/14/16 11:27 15 09/14/16 08:00 97.1 74 18 104/61 98 09/14/16 07:03 18 09/14/16 06:33 17 I/O 09/14/16 09/14/16 09/14/16 09/15/16 09/15/16 09/15/16 06:59 14:59 22:59 06:59 14:59 22:59 Intake Total 979 ml 1200 ml 1020 ml 720 ml Output Total 0 ml Balance 979 ml 1200 ml 1020 ml 720 ml Intake Oral 600 ml 1200 ml 1020 ml 720 ml IV Total 379 ml Drainage Total 0 ml # Voids 3 4 6 3 # Bowel Movements 0 1 1 0 Result Diagram: 09/13/16 0605 09/13/16 0605 Imaging Last Impressions Chest X-Ray 08/30/16 1145 Signed Impressions: Service Date/Time: Tuesday, August 30, 2016 11:52 - CONCLUSION: Right jugular line as above. No evidence of pneumothorax. Buck Garza MD Lower Extremity MRI 08/30/16 0000 Signed Impressions: Service Date/Time: Tuesday, August 30, 2016 20:23 - CONCLUSION: Edema within the deep subcutaneous fat abutting the muscular compartments. Edema within the muscular compartments is not seen. Early compartment syndrome cannot be totally ruled out with . Evan Vargas MD Procedures s/p I&D and vac application Objective Remarks RLE: dressings clean and dry. intact. +vac. good seal. harvest site clean and dry. NVI Assessment & Plan Problem List: (1) Vibrio (2) Septic shock (3) Leukocytosis (4) Sepsis (5) Cellulitis of leg, right Assessment and Plan 1) Right Leg vibrio infection s/p I&D with STSG - POD 3 -WBAT. careful not to overdue it -maintain dressings and vac -vac will remain x 5 days and plan to DC at bedside Monday -will plan for DC home on Monday -Infectious disease to have Abx arrange for home Follow-up appointment with Dr. Grey or PA in 2 weeks Seth German Jr. Sep 15, 2016 06:28
[2016-09-15] MEDS: BISACODYL 10 MG SUPP RECTAL SCH (07:19)
[2016-09-15] MEDS: POLYETHYLENE GLYCOL 17 GM PKG PO SCH ×2 (07:20→20:50)
[2016-09-15 08:00] VITALS: BP 90/43; PULSE 55; RESP 19; TEMP 97.7; O2SAT 99
[2016-09-15] MEDS: DOCUSATE SODIUM 50 MG/SENNA 8.6 MG TAB PO SCH ×2 (09:00→20:50)
[2016-09-15] MEDS: BACITRACIN TOP OINT 15 GM TUBE TOPICAL SCH ×2 (09:00→20:51)
[2016-09-15] MEDS: LACTULOSE SYRUP 20 GM/30 ML CUP PO SCH ×2 (09:00→20:50)
[2016-09-15] MEDS: HYDROmorphone HCL PF 1 MG/ML VIAL IV PUSH PRN ×4 (09:04→23:11)
[2016-09-15] MEDS: PANTOPRAZOLE SOD 40 MG DELAYED RELEASE TAB PO SCH (09:04)
--- NOTE | 2016-09-15 10:38 | HHI.PR ---
Subjective Remarks Follow up patient with vibrio of right leg. Patient seen and examined. Patient doing well overall. Reports not sleeping well last night due to leg discomfort but she does not wish to increase her pain medication. She denies any acute medical issues. No headache or dizziness. No cough or SOB. No chest pain. No N/V or abdominal pain. (+)BM. Urinating without difficulty. Objective Vitals Vital Signs Date Time Temp Pulse Resp B/P Pulse Ox O2 Delivery O2 Flow Rate FiO2 09/15/16 08:00 97.7 55 19 90/43 99 09/14/16 23:55 96.8 61 17 112/56 98 09/14/16 20:40 97.6 63 16 125/56 99 09/14/16 16:00 96.6 50 18 99/55 97 09/14/16 12:00 97.4 57 18 86/46 98 09/14/16 11:27 15 I/O 09/14/16 09/14/16 09/14/16 09/15/16 09/15/16 09/15/16 07:00 15:00 23:00 07:00 15:00 23:00 Intake Total 979 ml 1200 ml 1020 ml 720 ml Output Total 0 ml Balance 979 ml 1200 ml 1020 ml 720 ml Intake Oral 600 ml 1200 ml 1020 ml 720 ml IV Total 379 ml Drainage Total 0 ml # Voids 3 4 6 3 # Bowel Movements 0 1 1 0 Result Diagram: 09/13/16 0605 09/13/16 0605 Imaging Last Impressions Chest X-Ray 08/30/16 1145 Signed Impressions: Service Date/Time: Tuesday, August 30, 2016 11:52 - CONCLUSION: Right jugular line as above. No evidence of pneumothorax. Buck Garza MD Lower Extremity MRI 08/30/16 0000 Signed Impressions: Service Date/Time: Tuesday, August 30, 2016 20:23 - CONCLUSION: Edema within the deep subcutaneous fat abutting the muscular compartments. Edema within the muscular compartments is not seen. Early compartment syndrome cannot be totally ruled out with MR. Evan Vargas MD Objective Remarks GENERAL: Well-nourished, well-developed female patient, INAD. Awake and alert. SKIN: Warm and dry. Right lower extremity dressing and zhanna bandage in place, C/D /I. Wound vac in place and to suction. HEENT: Normocephalic. Atraumatic. EOMI. MMM. NECK: Supple, trachea midline. CARDIOVASCULAR: Regular rate and rhythm. No murmur appreciated. RESPIRATORY: Breath sounds equal bilaterally. No accessory muscle use. GASTROINTESTINAL: Abdomen soft, non-tender, nondistended. EXTREMITIES: Right lower extremity dressing and zhanna bandage in place, C/D/I. Wound vac in place and to suction. NEUROLOGICAL: Awake and alert. Able to move all extremities. Normal speech. PSYCHIATRIC: Appropriate insight and judgement. Procedures I/D of the right leg/ wound vac placement central line placement Medications and IVs Current Medications Medications (Trade) Dose Ordered Sig/Hernán Route Start Time Stop Time Status Last Admin (NS Flush) 2 ml UNSCH PRN IVF 08/30/16 08:15 (Protonix) 40 mg DAILY PO 08/30/16 12:15 09/15/16 09:04 (Lovenox Inj) 40 mg Q24H SQ 08/30/16 13:00 09/14/16 13:50 Miscellaneous Information Patient in critical care unit? Ass... Q361D .XX 08/30/16 13:45 08/30/16 13:50 Bacitracin 1 applic 1 applic Q12HR TOPICAL 08/30/16 21:00 09/14/16 20:29 (Levophed-Dextrose Drip) 250 ml @ 0 mls/hr TITRATE IV 08/31/16 00:00 08/31/16 07:06 (Dulcolax Supp) 10 mg DAILY RECTAL 08/31/16 09:00 (Miralax) 17 gm BID PO 08/31/16 09:00 09/13/16 09:43 (Lactulose Liq) 30 ml BID PO 08/31/16 09:00 09/07/16 09:11 Senna/Docusate Sodium 1 tab 1 tab BID PO 08/31/16 09:00 09/14/16 10:28 (Vibramycin Inj/ NS Inj) 100 ml @ 100 mls/hr Q12H IV 09/01/16 18:00 09/15/16 06:25 (Benadryl) 25 mg Q6H PRN PO 09/01/16 20:45 09/06/16 03:57 (Tylenol) 650 mg Q4H PRN PO 09/02/16 08:00 (Dilaudid Pf Inj) 1 mg Q3HR PRN IV PUSH 09/02/16 11:00 09/15/16 09:04 (Melatonin) 5 mg HS PRN PO 09/06/16 22:30 09/10/16 22:57 Oxycodone/ Acetaminophen 1 tab 1 tab Q4H PRN PO 09/09/16 17:00 09/15/16 06:26 (Lr 1000 ml Inj) 1,000 ml @ 100 mls/hr Q10H IV 09/12/16 07:56 09/14/16 00:02 Date of Insertion: Aug 30, 2016 Date of Removal: Sep 13, 2016 A/P Problem List: (1) Sepsis ICD Code: A41.9 Status: Acute (2) Cellulitis of leg, right ICD Code: L03.115 Status: Acute (3) Vibrio ICD Code: A00.9 Status: Acute Assessment and Plan 30-year-old female who was admitted with septic shock and necrotizing fasciitis secondary to vibrio. Septic Shock - secondary to RLE fasciitis Right lower extremity necrotizing fasciitis secondary to vibrio infection Lactic acidosis Acute kidney injury secondary to septic shock Sepsis, acute kidney injury, and lactic acidosis resolved Treated with IV Cipro, Ceftazidime and Doxycycline. 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 Per their recs, discontinue Ceftazidime and Ciprofloxacin. Continue Doxycycline IV for few more days then switch to po 100mg BID x one week. ID signed off. Right lower extremity necrotizing fasciitis secondary to vibrio infection Recent surgery history: -s/p Irrigation and debridement of right leg with excisional debridement, closure of right leg fasciotomy wound, application of wound VAC dressing on 09/05 -s/p Irrigation and debridement of right leg, closure of 8 cm of wound, application wound VAC dressing on 09/08/16 -s/p Irrigation and debridement right calf, split-thickness skin grafting right calf 09/12/16. [employer]ACH[employer] discontinued. Continue on Percocet 10/325mg one tab po q4h prn pain. Dilaudid 1mg q3h prn breakthrough pain. Per Ortho note, plan to keep wound vac x 5 days and d/c at the bedside on Monday. WBAT RLE. Hepatitis C: standard precautions, f/u as outpatient Chronic tobacco use, currently using nicotine with vaporizer Patient counseled to quit Patient supplementing with nicotine vaporizer DVT prophylaxis: Lovenox CODE STATUS: Full code Discussed with patient and Dr. Kuo Discharge Planning Anticipate discharge on Monday on oral antibiotics pending removal of wound vac. Problem Qualifiers (1) Sepsis: Qualified Code: A41.9 - Sepsis, due to unspecified organism Bibi Gaspar Sep 15, 2016 10:38
[2016-09-15] MEDS: ENOXAPARIN SODIUM 40 MG/0.4 ML SYRINGE SQ SCH (11:12)
[2016-09-15 11:13] VITALS: BP 109/69; PULSE 75; RESP 16; TEMP 96.7; O2SAT 100
[2016-09-15 16:46] VITALS: BP 94/51; PULSE 68; RESP 19; TEMP 98.5; O2SAT 98
[2016-09-15 19:00] VITALS: BP 112/71; PULSE 87; RESP 16; TEMP 97.8; O2SAT 95
[2016-09-16] VITALS: BP 109/64; PULSE 95; RESP 17; TEMP 96.5; O2SAT 99
[2016-09-16] MEDS: diphenhydrAMINE HCL 25 MG CAP PO PRN (00:35)
[2016-09-16] MEDS: oxyCODONE/ACETAMINOPHEN 10 MG/325 MG TAB PO PRN ×5 (01:00→20:45)
[2016-09-16] MEDS: LACTATED RINGER'S 1000 ML INJ 1,000 ML IV SCH ×2 (01:56→07:59)
[2016-09-16] MEDS: HYDROmorphone HCL PF 1 MG/ML VIAL IV PUSH PRN ×5 (02:21→22:27)
[2016-09-16] MEDS: DOXYCYCLINE INJ 100 MG in SODIUM CHLORIDE 0.9% INJ 100 ML IV SCH ×2 (05:15→16:01)
--- NOTE | 2016-09-16 06:40 | PD.ORT.PN ---
Subjective Subjective Remarks Pain controlled no new complaints Objective Vitals Vital Signs Date Time Temp Pulse Resp B/P Pulse Ox O2 Delivery O2 Flow Rate FiO2 09/16/16 02:51 18 09/16/16 02:08 18 09/16/16 00:00 96.5 95 17 109/64 99 09/15/16 19:00 97.8 87 16 112/71 95 09/15/16 16:46 98.5 68 19 94/51 98 09/15/16 11:13 96.7 75 16 109/69 100 09/15/16 08:00 97.7 55 19 90/43 99 I/O 09/15/16 09/15/16 09/15/16 09/16/16 09/16/16 09/16/16 07:00 15:00 23:00 07:00 15:00 23:00 Intake Total 720 ml 1340 ml 480 ml Output Total 20 ml 0 ml Balance 720 ml 1320 ml 480 ml Intake Oral 720 ml 1340 ml 480 ml Drainage Total 20 ml 0 ml # Voids 3 10 3 # Bowel Movements 0 1 0 Result Diagram: 09/13/16 0605 09/13/16 0605 Imaging Last Impressions Chest X-Ray 08/30/16 1145 Signed Impressions: Service Date/Time: Tuesday, August 30, 2016 11:52 - CONCLUSION: Right jugular line as above. No evidence of pneumothorax. Buck Garza MD Lower Extremity MRI 08/30/16 0000 Signed Impressions: Service Date/Time: Tuesday, August 30, 2016 20:23 - CONCLUSION: Edema within the deep subcutaneous fat abutting the muscular compartments. Edema within the muscular compartments is not seen. Early compartment syndrome cannot be totally ruled out with . Evan Vargas MD Procedures s/p I&D and vac application Objective Remarks RLE: dressings clean and dry. intact. +vac. good seal. harvest site clean and dry. NVI Assessment & Plan Problem List: (1) Vibrio (2) Septic shock (3) Leukocytosis (4) Sepsis (5) Cellulitis of leg, right Assessment and Plan 1) Right Leg vibrio infection s/p I&D with [facility] - POD 4 -WBAT. careful not to overdue it -maintain dressings and vac -vac will remain x 5 days and plan to DC at bedside Monday -will plan for DC home on Monday -Infectious disease to have Abx arrange for home Follow-up appointment with Dr. Grey or PA in 2 weeks Seth German Jr. Sep 16, 2016 06:40
[2016-09-16] MEDS: PANTOPRAZOLE SOD 40 MG DELAYED RELEASE TAB PO SCH (07:57)
[2016-09-16] MEDS: BACITRACIN TOP OINT 15 GM TUBE TOPICAL SCH ×2 (07:59→20:46)
[2016-09-16] MEDS: BISACODYL 10 MG SUPP RECTAL SCH (07:59)
[2016-09-16] MEDS: DOCUSATE SODIUM 50 MG/SENNA 8.6 MG TAB PO SCH ×2 (07:59→20:46)
[2016-09-16] MEDS: POLYETHYLENE GLYCOL 17 GM PKG PO SCH ×2 (07:59→20:46)
[2016-09-16] MEDS: LACTULOSE SYRUP 20 GM/30 ML CUP PO SCH ×2 (07:59→20:46)
[2016-09-16 08:00] VITALS: BP 98/62; PULSE 52; RESP 16; TEMP 97.7; O2SAT 98
--- NOTE | 2016-09-16 08:43 | HHI.PR ---
Subjective Remarks Follow up patient with vibrio of right leg. Patient seen and examined. Patient not sleeping well at night otherwise no complaints. Pain controlled. No fever or chills. No chest pain or SOB. No N/V or abdominal pain. Afebrile. VSS. Objective Vitals Vital Signs Date Time Temp Pulse Resp B/P Pulse Ox O2 Delivery O2 Flow Rate FiO2 09/16/16 02:51 18 09/16/16 02:08 18 09/16/16 00:00 96.5 95 17 109/64 99 09/15/16 19:00 97.8 87 16 112/71 95 09/15/16 16:46 98.5 68 19 94/51 98 09/15/16 11:13 96.7 75 16 109/69 100 I/O 09/15/16 09/15/16 09/15/16 09/16/16 09/16/16 09/16/16 07:00 15:00 23:00 07:00 15:00 23:00 Intake Total 720 ml 1340 ml 480 ml Output Total 20 ml 0 ml Balance 720 ml 1320 ml 480 ml Intake Oral 720 ml 1340 ml 480 ml Drainage Total 20 ml 0 ml # Voids 3 10 3 # Bowel Movements 0 1 0 Result Diagram: 09/13/16 0605 09/13/16 0605 Imaging Last Impressions Chest X-Ray 08/30/16 1145 Signed Impressions: Service Date/Time: Tuesday, August 30, 2016 11:52 - CONCLUSION: Right jugular line as above. No evidence of pneumothorax. Buck Garza MD Lower Extremity MRI 08/30/16 0000 Signed Impressions: Service Date/Time: Tuesday, August 30, 2016 20:23 - CONCLUSION: Edema within the deep subcutaneous fat abutting the muscular compartments. Edema within the muscular compartments is not seen. Early compartment syndrome cannot be totally ruled out with . Evan Vargas MD Objective Remarks GENERAL: Well-nourished, well-developed female patient, INAD. Awake and alert. Appears comfortable. SKIN: Warm and dry. Graft site dressing intact, clean and dry. HEENT: Normocephalic. Atraumatic. EOMI. MMM. NECK: Supple, trachea midline. CARDIOVASCULAR: Regular rate and rhythm. No murmur appreciated. RESPIRATORY: Breath sounds equal bilaterally. No accessory muscle use. GASTROINTESTINAL: Abdomen soft, non-tender, nondistended. EXTREMITIES: Right lower extremity dressing and zhanna bandage in place, C/D/I. Wound vac in place and to suction. NEUROLOGICAL: Awake and alert. Able to move all extremities. Normal speech. PSYCHIATRIC: Appropriate insight and judgement. Procedures I/D of the right leg/ wound vac placement central line placement Medications and IVs Current Medications Medications (Trade) Dose Ordered Sig/Hernán Route Start Time Stop Time Status Last Admin (NS Flush) 2 ml UNSCH PRN IVF 08/30/16 08:15 (Protonix) 40 mg DAILY PO 08/30/16 12:15 09/16/16 07:57 (Lovenox Inj) 40 mg Q24H SQ 08/30/16 13:00 09/15/16 11:12 Miscellaneous Information Patient in critical care unit? Ass... Q361D .XX 08/30/16 13:45 08/30/16 13:50 Bacitracin 1 applic 1 applic Q12HR TOPICAL 08/30/16 21:00 09/15/16 20:51 (Levophed-Dextrose Drip) 250 ml @ 0 mls/hr TITRATE IV 08/31/16 00:00 08/31/16 07:06 (Dulcolax Supp) 10 mg DAILY RECTAL 08/31/16 09:00 (Miralax) 17 gm BID PO 08/31/16 09:00 09/13/16 09:43 (Lactulose Liq) 30 ml BID PO 08/31/16 09:00 09/07/16 09:11 Senna/Docusate Sodium 1 tab 1 tab BID PO 08/31/16 09:00 09/14/16 10:28 (Vibramycin Inj/ NS Inj) 100 ml @ 100 mls/hr Q12H IV 09/01/16 18:00 09/16/16 05:15 (Benadryl) 25 mg Q6H PRN PO 09/01/16 20:45 09/16/16 00:35 (Tylenol) 650 mg Q4H PRN PO 09/02/16 08:00 (Dilaudid Pf Inj) 1 mg Q3HR PRN IV PUSH 09/02/16 11:00 09/16/16 02:21 (Melatonin) 5 mg HS PRN PO 09/06/16 22:30 09/10/16 22:57 (Percocet 10-325 Mg) 1 tab Q4H PRN PO 09/09/16 17:00 09/16/16 07:58 Date of Insertion: Aug 30, 2016 Date of Removal: Sep 13, 2016 A/P Problem List: (1) Sepsis ICD Code: A41.9 Status: Acute (2) Cellulitis of leg, right ICD Code: L03.115 Status: Acute (3) Vibrio ICD Code: A00.9 Status: Acute Assessment and Plan 30-year-old female who was admitted with septic shock and necrotizing fasciitis secondary to vibrio. Septic Shock - secondary to RLE fasciitis Right lower extremity necrotizing fasciitis secondary to vibrio infection Lactic acidosis Acute kidney injury secondary to septic shock Sepsis, acute kidney injury, and lactic acidosis resolved Treated with IV Cipro, Ceftazidime and Doxycycline. 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 Per their recs, discontinue Ceftazidime and Ciprofloxacin. Continue Doxycycline IV for few more days then switch to po 100mg BID x one week. ID signed off. Right lower extremity necrotizing fasciitis secondary to vibrio infection Recent surgery history: -s/p Irrigation and debridement of right leg with excisional debridement, closure of right leg fasciotomy wound, application of wound VAC dressing on 09/05 -s/p Irrigation and debridement of right leg, closure of 8 cm of wound, application wound VAC dressing on 09/08/16 -s/p Irrigation and debridement right calf, split-thickness skin grafting right calf 09/12/16. 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 Continue on Percocet 10/325mg one tab po q4h prn pain. Dilaudid 1mg q3h prn breakthrough pain. Per Ortho note, plan to keep wound vac x 5 days and d/c at the bedside on Monday. WBAT RLE. - Plan for d/c tomorrow following removal of wound vac with follow up with Ortho in 2 weeks. Hepatitis C: standard precautions, f/u as outpatient Chronic tobacco use, currently using nicotine with vaporizer Patient counseled to quit Patient supplementing with nicotine vaporizer DVT prophylaxis: Lovenox CODE STATUS: Full code Discussed with patient and Dr. Kuo Discharge Planning Anticipate discharge on Monday on oral antibiotics pending removal of wound vac. Problem Qualifiers (1) Sepsis: Qualified Code: A41.9 - Sepsis, due to unspecified organism Bibi Gaspar Sep 16, 2016 08:43
[2016-09-16] MEDS: ENOXAPARIN SODIUM 40 MG/0.4 ML SYRINGE SQ SCH (11:26)
[2016-09-16 11:27] VITALS: BP 117/63; PULSE 63; RESP 16; TEMP 96.2; O2SAT 100
[2016-09-16 16:02] VITALS: BP 106/69; PULSE 80; RESP 17; TEMP 97.2; O2SAT 99
[2016-09-16 20:41] VITALS: BP 116/67; PULSE 76; RESP 18; TEMP 97.6; O2SAT 100
[2016-09-17 00:04] VITALS: BP 112/68; PULSE 76; RESP 18; TEMP 98.2; O2SAT 100
[2016-09-17] MEDS: oxyCODONE/ACETAMINOPHEN 10 MG/325 MG TAB PO PRN ×2 (00:56→06:41)
[2016-09-17 05:37] VITALS: BP 114/71; PULSE 75; RESP 18; TEMP 98.1; O2SAT 100
[2016-09-17] MEDS: DOXYCYCLINE INJ 100 MG in SODIUM CHLORIDE 0.9% INJ 100 ML IV SCH (05:56)
--- NOTE | 2016-09-17 06:47 | PD.ORT.PN ---
Subjective Subjective Remarks Pain controlled no new complaints Objective Vitals Vital Signs Date Time Temp Pulse Resp B/P Pulse Ox O2 Delivery O2 Flow Rate FiO2 09/17/16 05:37 98.1 75 18 114/71 100 09/17/16 01:56 18 09/17/16 00:04 98.2 76 18 112/68 100 09/16/16 20:41 97.6 76 18 116/67 100 09/16/16 16:02 97.2 80 17 106/69 99 09/16/16 11:27 96.2 63 16 117/63 100 09/16/16 08:00 97.7 52 16 98/62 98 I/O 09/16/16 09/16/16 09/16/16 09/17/16 09/17/16 09/17/16 07:00 15:00 23:00 07:00 15:00 23:00 Intake Total 480 ml 480 ml 720 ml Output Total 0 ml 0 ml 10 ml 0 ml Balance 480 ml 480 ml -10 ml 720 ml Intake Oral 480 ml 480 ml 720 ml Drainage Total 0 ml 0 ml 10 ml 0 ml # Voids 3 6 22 # Bowel Movements 0 2 Result Diagram: 09/13/16 0605 09/13/16 0605 Imaging Last Impressions Chest X-Ray 08/30/16 1145 Signed Impressions: Service Date/Time: Tuesday, August 30, 2016 11:52 - CONCLUSION: Right jugular line as above. No evidence of pneumothorax. Buck Garza MD Lower Extremity MRI 08/30/16 0000 Signed Impressions: Service Date/Time: Tuesday, August 30, 2016 20:23 - CONCLUSION: Edema within the deep subcutaneous fat abutting the muscular compartments. Edema within the muscular compartments is not seen. Early compartment syndrome cannot be totally ruled out with MR. Evan Vargas MD Procedures s/p I&D and vac application Objective Remarks RLE: dressings clean and dry. intact. +vac. good seal. harvest site clean and dry. NVI Dressing taken down and skin graft is healthy with no necrosis. Assessment & Plan Problem List: (1) Vibrio (2) Septic shock (3) Leukocytosis (4) Sepsis (5) Cellulitis of leg, right Assessment and Plan 1) Right Leg vibrio infection s/p I&D with [facility] - POD 5 -WBAT. careful not to overdue it -DC wound VAC -Discharged home today with home health dressing changes -Infectious disease to have Abx arrange for home Follow-up appointment with Dr. Grey or PA in 2 weeks Seth German Jr. Sep 17, 2016 06:47
--- NOTE | 2016-09-17 06:48 | HHI.FF ---
Face to Face Verification Diagnosis: (1) Cellulitis of leg, right Nursing Dressing Changes: Daily dressing change, Augustine wrap, 4x4s, Xeroform I have seen patient Smitha Larson on 09/17/16. My clinical findings support the need for the requested home health care services because: Limited ability to care for self I certify that my clinical findings support that this patient is homebound because: Post-op weakness Seth German Jr. Sep 17, 2016 06:48
[2016-09-17] MEDS ORDERED: PERC7.5T13 PO (06:49)
[2016-09-17] MEDS ORDERED: DOXY100C PO (07:37)
[2016-09-17 08:00] VITALS: BP 102/62; PULSE 61; RESP 18; TEMP 98.3; O2SAT 98
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
== END 2016-09-17 08:35 | disposition home or self-care (01) | DRG 853 ==
LOC: PHED 07:45 → PHEDA 09:37 → PHICU 12:55 → N03B 09-01 17:56 → N06B 09-03 16:50
PROVIDERS: ADMIT Internal Medicine; ATTEND Internal Medicine
PROC: 0JBN0ZZ Excision of Right Lower Leg Subcutaneous Tissue and Fascia, Open Approach (ICD-10-PCS; 2016-09-01)
PROC: 0KNS0ZZ Release Right Lower Leg Muscle, Open Approach (ICD-10-PCS; principal; 2016-09-01 20:37)
PROC: 0JBN0ZZ Excision of Right Lower Leg Subcutaneous Tissue and Fascia, Open Approach (ICD-10-PCS; 2016-09-03)
PROC: 0JBN0ZZ Excision of Right Lower Leg Subcutaneous Tissue and Fascia, Open Approach (ICD-10-PCS; 2016-09-05)
PROC: 0JBN0ZZ Excision of Right Lower Leg Subcutaneous Tissue and Fascia, Open Approach (ICD-10-PCS; 2016-09-08)
PROC: 0HRKX74 Replacement of Right Lower Leg Skin with Autologous Tissue Substitute, Partial Thickness, External Approach (ICD-10-PCS; 2016-09-12)
PROC: 0HBHXZZ Excision of Right Upper Leg Skin, External Approach (ICD-10-PCS; 2016-09-12)
PROC: 0KBS0ZZ Excision of Right Lower Leg Muscle, Open Approach (ICD-10-PCS; 2016-09-12)
DX: A41.9 Sepsis, unspecified organism (principal); R65.21 Severe sepsis with septic shock; M72.6 Necrotizing fasciitis; L03.115 Cellulitis of right lower limb; E87.2 Acidosis; N17.9 Acute kidney failure, unspecified; K50.90 Crohn's disease, unspecified, without complications; D69.6 Thrombocytopenia, unspecified; T79.A0XA Compartment syndrome, unspecified, initial encounter; K76.89 Other specified diseases of liver; I10 Essential (primary) hypertension; B96.82 Vibrio vulnificus as the cause of diseases classified elsewhere; B19.20 Unspecified viral hepatitis C without hepatic coma; S81.811D Laceration without foreign body, right lower leg, subsequent encounter; W17.89XD Other fall from one level to another, subsequent encounter; Y92.69 Other specified industrial and construction area as the place of occurrence of the external cause; Y99.0 Civilian activity done for income or pay; W01.0XXA Fall on same level from slipping, tripping and stumbling without subsequent striking against object, initial encounter
CPT/HCPCS: 36556; 71010; 73720; 76937; 80048; 80053; 80074; 80076; 80202; 81001; 82533; 82550; 82565; 83605; 83735; 84100; 84155; 84443; 84703; 85007; 85025; 85027; 85610; 85730; 87040; 87070; 87077; 87186; 87205; 87641; 88304; 88305; 90471; 90714; 93306; 94150; 94640; 94667; 94668; 96374; 96375; A9579; J0131; J0713; J0744; J1170; J1580; J1650; J1885; J1956; J2250; J2270; J2405; J2543; J3010; J3370; J3475; J3480; J7030; J7042; J7050; J7120

== ENCOUNTER 2016-09-30 23:06 | Emergency (ER) | payer SELFPAY ==
[~2016-09-30] VITALS: Ht 165.1 cm; Wt 65.0 kg
[~2016-09-30 23:06] MED LIST changes: +CEPH-460 PO; +DOXY100C PO; -IBUP800T23 PO; +PERC7.5T13 PO
[2016-09-30 23:11] VITALS: BP 138/88; PULSE 58; RESP 12; TEMP 98.3; O2SAT 100
--- NOTE | 2016-10-01 00:11 | PD ---
HPI Chief Complaint: Skin Problem Time Seen by Provider: 23:50 Travel History International Travel<30 days: No Contact w/Intl Traveler<30days: No Traveled to known affect area: No History of Present Illness HPI 30 y/o female presents with right leg redness and warmth to her skin graft site that started yesterday. She denies any fever or other associated symptoms. She is concerned with her history with severe infection recently wanted to get it checked out. She states she saw her physician recently before that showed signs of infection and he was happy with the way it was healing. Dr. Suarez is her surgeon. She states no other concurrent concerns. She is not currently on any antibiotic therapy. She states she completed her prior course of doxycycline. She has had no new injury. [facility] Past Medical History ADD: Yes Cirrhosis: No Diminished Hearing: No Gastrointestinal Disorders: Yes (Crohn's disease) Hepatitis: Yes (Hep C) : 0 Past Surgical History Abdominal Surgery: Yes (Appendectomy) Pacemaker: No Social History Alcohol Use: No Tobacco Use: Yes Substance Use: Yes Allergies-Medications (Allergen,Severity, Reaction): Coded Allergies: No Known Allergies (Verified , 09/30/16) Reported Meds & Prescriptions Reported Meds & Active Scripts Active Doxycycline (Doxycycline (Monohydrate)) 100 Mg Cap 100 Mg PO BID 7 Days Clindamycin (Clindamycin HCl) 300 Mg Cap 300 Mg PO TID 7 Days Review of Systems Except as stated in HPI: all other systems reviewed are Neg Physical Exam Narrative GENERAL: Well-nourished, well-developed patient. SKIN: Warm and dry. Middle laceration near skin graft site shows moderate amount of erythema and warmth surrounding area without underlying induration HEAD: Normocephalic and atraumatic. EYES: No injection or drainage. ENT: No nasal drainage noted. NECK: Supple, trachea midline. CARDIOVASCULAR: Regular rate and rhythm RESPIRATORY: No increased effort. No accessory muscle use EXTREMITIES: No edema. No specific joint pain, neurovascularly intact NEUROLOGICAL: Awake and alert. Motor and sensory grossly within normal limits. Normal speech. Data Data Last Documented VS Vital Signs Date Time Temp Pulse Resp B/P Pulse Ox O2 Delivery O2 Flow Rate FiO2 09/30/16 23:11 98.3 58 12 138/88 100 Room Air Orders Complete Blood Count With Diff (09/30/16 23:56) Comprehensive Metabolic Panel (09/30/16 23:56) Lactic Acid Sepsis Protocol (09/30/16 23:56) Ecg Monitoring (09/30/16 23:56) Iv Access Insert/Monitor (09/30/16 23:56) Oximetry (09/30/16 23:56) Tibia/Fibula (Ap/Lat) (09/30/16 ) Doxycycline (Vibramycin) (10/01/16 01:30) Clindamycin (Cleocin) (10/01/16 01:30) Labs Laboratory Tests Test 09/30/16 10/01/16 10/01/16 23:59 00:04 00:10 White Blood Count 8.0 TH/MM3 Red Blood Count 4.14 MIL/MM3 Hemoglobin 12.3 GM/DL Hematocrit 37.4 % Mean Corpuscular Volume 90.5 FL Mean Corpuscular Hemoglobin 29.8 PG Mean Corpuscular Hemoglobin 33.0 % Concent Red Cell Distribution Width 13.8 % Platelet Count 206 TH/MM3 Mean Platelet Volume 10.0 FL Neutrophils (%) (Auto) 53.6 % Lymphocytes (%) (Auto) 33.8 % Monocytes (%) (Auto) 9.0 % Eosinophils (%) (Auto) 2.2 % Basophils (%) (Auto) 1.4 % Neutrophils # (Auto) 4.3 TH/MM3 Lymphocytes # (Auto) 2.7 TH/MM3 Monocytes # (Auto) 0.7 TH/MM3 Eosinophils # (Auto) 0.2 TH/MM3 Basophils # (Auto) 0.1 TH/MM3 CBC Comment DIFF FINAL Differential Comment Sodium Level 141 MEQ/L Potassium Level 3.9 MEQ/L Chloride Level 105 MEQ/L Carbon Dioxide Level 28.0 MEQ/L Anion Gap 8 MEQ/L Blood Urea Nitrogen 5 MG/DL Creatinine 0.69 MG/DL Estimat Glomerular Filtration 101 ML/MIN Rate Random Glucose 82 MG/DL Calcium Level 8.6 MG/DL Total Bilirubin 0.9 MG/DL Aspartate Amino Transf 22 U/L (AST/SGOT) Alanine Aminotransferase 40 U/L (ALT/SGPT) Alkaline Phosphatase 61 U/L Total Protein 8.1 GM/DL Albumin 3.9 GM/DL Lactic Acid Level 1.3 mmol/L [facility] Medical Decision Making Medical Screen Exam Complete: Yes Emergency Medical Condition: Yes Medical Record Reviewed: Yes (past history confirmed) Interpretation(s) CBC & BMP Diagram 8/4/17 23:59 10/01/16 00:04 Differential Diagnosis Cellulitis, abscess, postop Narrative Course Will check blood work, x-ray and discuss with her surgeon Patient here has normal white count, lactate and without fever, small amount of surrounding erythema noted to sutures just above skin graft site. Patient is in agreement to oral antibiotics as an outpatient and already has follow-up on Monday. She will talk with her physician first thing in the morning to confirm care. Given return instructions. Will get first dose of antibiotics here. No increase in redness while here in the ER. Diagnosis Primary Impression: Cellulitis of leg, right Patient Instructions: General Instructions Additional Instructions: Return with any increasing redness, fever or other concurrent complaints, call your surgeon tomorrow morning to discuss her care and follow on Monday Med/Other Pt SpecificInfo: Prescription(s) given Scripts Doxycycline (Monohydrate) (Doxycycline)100 Mg [id number] Mg PO BID 7 Days Prov:Flores Poe MD 10/01/16 Clindamycin 300 Mg [id number] Mg PO TID 7 Days Prov:Flores Poe MD 10/01/16 Disposition: 01 DISCHARGE HOME Condition: Stable Flores Poe MD Oct 01, 2016 00:11
--- NOTE | 2016-10-01 00:26 | RADRPT ---
EXAM DATE/TIME: 09/30/2016 23:52 [facility] COMPARISON: No previous studies available for comparison. INDICATIONS : Pt had skin graft done to back of right lower leg last week, now has redness and swelling to stitches . MEDICAL HISTORY : None. SURGICAL HISTORY : Skin graft, right lower leg ENCOUNTER: Initial ACUITY: 1 week PAIN SCORE: 7/10 LOCATION: Right Tib-fib FINDINGS: Subcutaneous swelling is present. A single staple is present lateral to the fibula. There is no bony destruction or periosteal reaction to suggest osteomyelitis. CONCLUSION: 1. Soft tissue swelling otherwise negative Tien Abreu MD on October 01, 2016 at 0:23 Board Certified Radiologist. This report was verified electronically.
[2016-10-01 00:53] LABS: ALT (GPT) 40 U/L (10-53); ANION GAP 8 MEQ/L (5-15); AST (GOT) 22 U/L (15-37); BLOOD UREA NITROGEN 5 MG/DL (7-18); CHLORIDE 105 MEQ/L (98-107); GLOMERULAR FILTRATION RATE 101 ML/MIN (>89); POTASSIUM 3.9 MEQ/L (3.5-5.1); SODIUM (NA) 141 MEQ/L (136-145)
[2016-10-01 00:53] LABS: AUTOMATED NEUTROPHIL # 4.3 TH/MM3 (1.8-7.7); BASOPHIL # 0.1 TH/MM3 (0-0.2); BASOPHIL % 1.4 % (0.0-2.0); EOSINOPHIL # 0.2 TH/MM3 (0-0.4); EOSINOPHIL % 2.2 % (0.0-4.0); HEMATOCRIT 37.4 % (35.0-46.0); HEMO FLAGS DIFF FINAL; LYMPH % 33.8 % (9.0-44.0); LYMPHOCYTE # 2.7 TH/MM3 (1.0-4.8); MEAN CELL VOLUME 90.5 FL (80.0-100.0); MEAN CORPUSCULAR HEMOGLOBIN 29.8 PG (27.0-34.0); NEUT % 53.6 % (16.0-70.0); PLATELET COUNT 206 TH/MM3 (150-450); RED BLOOD COUNT 4.14 MIL/MM3 (4.00-5.30); RED CELL DISTRIBUTION WIDTH 13.8 % (11.6-17.2)
[2016-10-01 00:56] LABS: ALKALINE PHOSPHATASE 61 U/L (45-117); TOTAL BILIRUBIN ADULT 0.9 MG/DL (0.2-1.0)
[2016-10-01] MEDS ORDERED: CLIN1CAP6 PO (01:24)
[2016-10-01] MEDS ORDERED: DOXY1CAP91 PO (01:24)
[2016-10-01] MEDS ORDERED: DOXYCYCLINE HYCLATE 100 MG CAP PO ONE (01:30)
[2016-10-01] MEDS ORDERED: CLINDAMYCIN 150 MG CAP PO ONE (01:30)
== END 2016-10-01 01:50 | disposition home or self-care (01) ==
LOC: NEPC 23:06
DX: L03.115 Cellulitis of right lower limb (principal); B19.20 Unspecified viral hepatitis C without hepatic coma; K50.90 Crohn's disease, unspecified, without complications
CPT/HCPCS: 73590; 80053; 83605; 85025; 99284

== ENCOUNTER 2016-12-06 12:30 | Emergency (ER) | payer SELFPAY ==
[~2016-12-06] VITALS: Ht 170.2 cm; Wt 68.0 kg
[~2016-12-06 12:30] MED LIST changes: -CEPH-460 PO; +CLIN1CAP6 PO; -DOXY100C PO; +DOXY1CAP91 PO; -PERC7.5T13 PO
[2016-12-06 12:33] VITALS: BP 117/58; PULSE 97; RESP 12; TEMP 98.5; O2SAT 97
--- NOTE | 2016-12-06 12:35 | PD ---
Physical Exam Date Seen by Provider: Dec 06, 2016 Time Seen by Provider: 12:33 Narrative 31 yo female here for umbilical pain. Has had this for a few weeks. Getting worst. pain is 8/10 with laying on her belly. Possible hernia? per patient she has a lumb in her umbilicus which is new. Diarrhea only in the mornings. No N/ V. No recent surgeries. Vitals are stable in triage. Awaiting bed placement. Data Data Last Documented VS Vital Signs Date Time Temp Pulse Resp B/P (MAP) Pulse Ox O2 Delivery O2 Flow Rate FiO2 12/06/16 12:33 98.5 97 12 117/58 (77) 97 Room Air [facility] Medical Record Reviewed: Yes Supervised Visit with NATHAN: Cam Collins Dec 06, 2016 12:35
--- NOTE | 2016-12-06 15:55 | PD ---
HPI Chief Complaint: Abdominal Pain Time Seen by Provider: 14:44 Travel History International Travel<30 days: No Contact w/Intl Traveler<30days: No Traveled to known affect area: No History of Present Illness HPI The patient was seen and examined in the presence of the nurse. This patient complains of some central abdominal bloating. She is afraid she might have a hernia. Duration is 2 weeks. She's been eating and has not had vomiting or constipation. Severity is moderate. No alleviating factors. She has history of IV drug abuse but has not used in 2 years. No fevers. No chest symptoms PFSH Past Medical History ADD: Yes Cirrhosis: No Diminished Hearing: No Gastrointestinal Disorders: Yes (Crohn's disease) Hepatitis: Yes (Hep C) Integumentary: Yes (skin graft) ?: Not LMP: 11/2016 : 0 Past Surgical History Abdominal Surgery: Yes (Appendectomy) Pacemaker: No Other Surgery: Yes Social History Alcohol Use: No Tobacco Use: No Substance Use: Yes Allergies-Medications (Allergen,Severity, Reaction): Coded Allergies: No Known Allergies (Verified , 12/06/16) Reported Meds & Prescriptions Reported Meds & Active Scripts Active Doxycycline (Doxycycline (Monohydrate)) 100 Mg Cap 100 Mg PO BID 7 Days Clindamycin (Clindamycin HCl) 300 Mg Cap 300 Mg PO TID 7 Days Review of Systems General / Constitutional: No: Fever Eyes: No: Visual changes HENT: No: Headaches Cardiovascular: No: Chest Pain or Discomfort Respiratory: No: Shortness of Breath Gastrointestinal: Positive: Abdominal Pain Genitourinary: No: Dysuria Musculoskeletal: No: Pain Skin: No Rash Neurologic: No: Weakness Psychiatric: No: Depression Endocrine: No: Polydipsia Hematologic/Lymphatic: No: Easy Bruising Physical Exam Narrative GENERAL: Well-nourished, well-developed patient in no apparent distress. SKIN: Focused skin assessment reveals no rash and nodules. Skin is Warm and dry. HEAD: Atraumatic. Normocephalic. EYES: Pupils equal and round. No scleral icterus. No injection or drainage. ENT: No nasal bleeding or discharge. Mucous membranes pink and moist. NECK: Trachea midline. No JVD. CARDIOVASCULAR: Regular rate and rhythm. No murmur appreciated. RESPIRATORY: No accessory muscle use. Clear to auscultation. Breath sounds equal bilaterally. GASTROINTESTINAL: Abdomen soft, she has a very discrete 1 cm x 1 cm tender nodule like finding right near the umbilicus. nondistended. Hepatic and splenic margins not palpable. MUSCULOSKELETAL: No obvious deformities. No clubbing. No cyanosis. No edema. NEUROLOGICAL: Awake and alert. No obvious cranial nerve deficits. Motor grossly within normal limits. Normal speech. PSYCHIATRIC: Appropriate mood and affect; insight and judgment normal. Data Data Last Documented VS Vital Signs Date Time Temp Pulse Resp B/P (MAP) Pulse Ox O2 Delivery O2 Flow Rate FiO2 12/06/16 12:33 98.5 97 12 117/58 (77) 97 Room Air MDM Medical Decision Making Medical Screen Exam Complete: Yes Emergency Medical Condition: Yes Medical Record Reviewed: Yes Differential Diagnosis Hernia, incarceration, lymphadenopathy Narrative Course I have reviewed the patient's electronic medical record. Patient's abdomen in general is soft and benign and she does have that one by 1 cm tender area. It's hard to know just by examination what exactly this represents. It could possibly be a very small hernia with some abdominal fat stuck in it. It is certainly not intestine. I attempted to place an external jugular but I was unsuccessful. Discussed with the patient that I recommend we do a CT of abdomen and pelvis with IV contrast. Patient did not want to go through a big workup. She did not want a CAT scan. She is aware that I can properly diagnose her abdominal condition without some imaging. I don't feel she needs anything emergent today but I did want to conduct a workup and evaluate it further. She is planning to follow up with either family physician or general surgeon to discuss whether this represents a hernia. Diagnosis Primary Impression: Abdominal pain Qualified Codes: R10.33 - Periumbilical pain Additional Instructions: The patient was advised to follow up with their physician and return if they worsen. Med/Other Pt SpecificInfo: Other Disposition: 01 DISCHARGE HOME Condition: Stable Mick Pérez MD Dec 06, 2016 15:55
== END 2016-12-06 16:18 | disposition home or self-care (01) ==
LOC: NEPD 12:30
DX: R10.33 Periumbilical pain (principal)
CPT/HCPCS: 99282

== ENCOUNTER 2017-06-07 18:53 | Emergency (ER) | payer SELFPAY ==
[~2017-06-07 18:53] MED LIST changes: -CLIN1CAP6 PO; +CLIN300C5 PO
[2017-06-07] MEDS ORDERED: NORC5TAB PO (21:55)
[2017-06-07] MEDS ORDERED: BACT800T5 PO (21:55)
== END 2017-06-07 19:16 | disposition left against medical advice (07) ==
LOC: NED 18:53
DX: Z53.21 Procedure and treatment not carried out due to patient leaving prior to being seen by health care provider (principal); L98.9 Disorder of the skin and subcutaneous tissue, unspecified
CPT/HCPCS: 99281

== ENCOUNTER 2017-06-07 20:09 | Emergency (ER) | payer SELFPAY ==
[~2017-06-07] VITALS: Ht 170.2 cm; Wt 66.3 kg
[2017-06-07 20:29] VITALS: BP 112/60; PULSE 59; RESP 14; TEMP 98.7; O2SAT 100
[2017-06-07] MEDS ORDERED: NORC5TAB PO (21:55)
[2017-06-07] MEDS ORDERED: BACT800T5 PO (21:55)
[2017-06-07] MEDS ORDERED: SULFAMETHOXAZOLE-TRIMETHOPRIM DS 800-160 MG TAB PO ONE (22:00)
[2017-06-07] MEDS ORDERED: ACETAMINOPHEN/HYDROcodone 325 MG/5 MG TAB PO ONE (22:00)
--- NOTE | 2017-06-07 22:12 | PD ---
HPI Chief Complaint: Skin Problem Time Seen by Provider: 21:49 Travel History International Travel<30 days: No Contact w/Intl Traveler<30days: No Traveled to known affect area: No History of Present Illness HPI 31-year-old white female presents to emergency department with recurrent abscess to her left axilla. She states that she has had abscesses in the past. This is been present now for the last few days. He has become increasing painful swollen. No drainage. She is up-to-date with immunizations. History of sepsis from a very real injury to her right lower leg. History of substance abuse [facility] Past Medical History Narrative Medical History of sepsis secondary of there were no injury to the right lower leg with compartment syndrome and possible necrotizing fasciitis. History of IV drug abuse, hepatitis C, Crohn's disease ADD: Yes Cirrhosis: No Diminished Hearing: No Gastrointestinal Disorders: Yes (Crohn's disease) Hepatitis: Yes (Hep C) Integumentary: Yes (skin graft) Tetanus Vaccination: < 5 Years Influenza Vaccination: No ?: Not LMP: 05/21/2017 : 0 Past Surgical History Abdominal Surgery: Yes (Appendectomy) Pacemaker: No Other Surgery: Yes Social History Alcohol Use: No Tobacco Use: Yes (vap) Substance Use: No Allergies-Medications (Allergen,Severity, Reaction): Coded Allergies: No Known Allergies (Verified Adverse Reaction, Unknown, 06/07/17) Reported Meds & Prescriptions Reported Meds & Active Scripts Active Bactrim DS (Sulfamethoxazole-Trimethoprim) 800-160 Mg Tab 1 Tab PO BID Doxycycline (Doxycycline (Monohydrate)) 100 Mg Cap 100 Mg PO BID 7 Days Clindamycin (Clindamycin HCl) 300 Mg Cap 300 Mg PO TID 7 Days Review of Systems General / Constitutional: No: Fever Eyes: No: Visual changes HENT: No: Headaches Cardiovascular: No: Chest Pain or Discomfort Respiratory: No: Shortness of Breath Gastrointestinal: No: Abdominal Pain Genitourinary: No: Dysuria Musculoskeletal: Positive: Pain Skin: Positive Lumps, No Rash Neurologic: No: Weakness Psychiatric: No: Depression Endocrine: No: Polydipsia Hematologic/Lymphatic: No: Easy Bruising Physical Exam Narrative GENERAL: This is a well-nourished, well-developed patient, in no apparent distress. SKIN: Patient has a 3 x 3 cm abscess to the left axilla which is fluctuant but not pointing. Mild erythema. Tender to touch. No drainage.. Warm and dry. HEAD: Atraumatic. Normocephalic. EYES: PERRL, EOMI, no discharge or injection. No scleral icterus. EARS: Clear NOSE: Nasal turbinates appear normal. THROAT: Mucosa pink and moist. Airway patent. NECK: Trachea midline. supple, moves head freely. LUNGS: Clear to auscultation. CV: Regular in rhythm. ABDOMEN: Soft nontender. EXT: No clubbing cyanosis or edema. Data Data Last Documented VS Vital Signs Date Time Temp Pulse Resp B/P (MAP) Pulse Ox O2 Delivery O2 Flow Rate FiO2 06/07/17 20:29 98.7 59 14 112/60 (77) 100 Orders Orders Sulfamet-Trimeth Ds 800-160 Mg (Bactrim (06/07/17 22:00) Acetamin-Hydrocod 325-5 Mg ([place] 5-325 (06/07/17 22:00) Ed Discharge Order (06/07/17 22:07) MDM Medical Decision Making Medical Screen Exam Complete: Yes Emergency Medical Condition: Yes Medical Record Reviewed: Yes Differential Diagnosis MDM: High Differential diagnoses: Abscess, folliculitis, cellulitis, lymphangitis, abrasion, contact dermatitis Narrative Course An incision and drainage has been performed. Patient's given Bactrim DS by mouth. She has declined her pain medication. Procedures Procedure Narrative I&D abscess: After the risks and benefits were discussed the following procedure was performed. The skin is prepped and draped in the usual sterile fashion using Betadine. The abscess is anesthetized with 1% lidocaine with epinephrine. After adequate anesthesia, an 11 blade scalpel is used to make a 1.2 centimeter central incision. Perulant material is expressed. Loculations are broken up using the backend of the scalpel. The wound is irrigated with normal saline.. The wound is packed open using iodoform gauze. A clean dressing is applied. The patient tolerated the procedure well. There was no complications. Follow-up instructions were given to the patient. Diagnosis Primary Impression: left axilla abscess Patient Instructions: General Instructions Additional Instructions: Rest. Elevation. keep clean and dry. remove the packing in two days. Daily wound care with soap, water and Neosporin. Three Advil every 6 hours. Bactrim DS. Follow-up with a primary care doctor in one week. Return to the ER for any problems. Med/Other Pt SpecificInfo: Prescription(s) given, Wound Care Scripts Sulfamethoxazole-Trimethoprim (Bactrim DS) 800-160 Mg Tab 1 TAB PO BID for Infection, #20 TAB 0 Refills Prov: Mick Pérez MD 06/07/17 Disposition: 01 DISCHARGE HOME Condition: Stable Reji Majano Jun 07, 2017 22:12
== END 2017-06-07 22:20 | disposition home or self-care (01) ==
LOC: NEPD 20:09
DX: L02.412 Cutaneous abscess of left axilla (principal); K50.90 Crohn's disease, unspecified, without complications; B19.20 Unspecified viral hepatitis C without hepatic coma; Z72.0 Tobacco use
CPT/HCPCS: 10061